=== PATIENT | female | born 1965 | race Caucasian/White ===

== ENCOUNTER 2021-11-26 20:20 | Inpatient (IN) | payer OTHER, SELFPAY ==
[2021-11-26 20:29] VITALS: BP 135/75; PULSE 80; RESP 16; TEMP 36.3; O2SAT 100; BMI 23.4
[2021-11-26 21:00] VITALS: BP 130/86; PULSE 87; O2SAT 100
--- NOTE | 2021-11-26 21:12 | CT_ITS ---
Patient: BRE CLARKE Facility:?[facility] R[facility] Patient ID:?[id number] Site Patient ID:?[id number]. Site :?[id number] Study:?CT-Abdomen/Pelvis W/ISOVUE 370 82CC-11/26/2021 10:10:02 PM Ordering Physician:Ha Son Final Report: INDICATION: Abdominal pain TECHNIQUE: CT abdomen and pelvis acquired with 82 cc Isovue 370 IV contrast. COMPARISON: None FINDINGS: Lower chest: Unremarkable. Liver: Unremarkable. Gallbladder and bile ducts: Unremarkable. Spleen: Unremarkable. Pancreas: There is free fluid around head of the pancreas adjacent to the 1st portion the duodenum and portal vein. Mildly prominent pancreatic duct Adrenal glands: Unremarkable. Kidneys: Unremarkable. GI tract: Large amount of stool throughout the colon. Appendix is normal. Vascular structures: Negative. No sign of aneurysm. Lymph nodes: Unremarkable. Miscellaneous: Unremarkable. No free air or significant free fluid. Pelvic Organs: Pessary device in the vagina. Unremarkable urinary bladder. Bones: Unremarkable for age. IMPRESSION: 1. Free fluid around the head of the pancreas is indeterminate with a broad differential including pancreatitis, localized ascites, or even perforated gastric or diverticular ulcer, though no free-air is seen. 2. Large amount of stool throughout the colon may indicate constipation. Please note that all CT scans at this facility use dose modulation, iterative reconstruction, and/or weight-based dosing when appropriate to reduce radiation dose to as low as reasonably achievable. Dictated by Rahul Alexandre MD @ 11/26/2021 11:03:50 PM Signed by:?Rahul Alexandre MD @11/26/2021 11:03:50 PM (Electronic Signature)
[2021-11-26 21:20] VITALS: BP 135/86; PULSE 61; O2SAT 98
[2021-11-26] MEDS: 0.9 % SODIUM CHLORIDE 1000 ml 1,000 ML IV (21:44)
[2021-11-26] MEDS: KETOROLAC 30 MG/ML inj IVP (21:45)
[2021-11-26 21:54] LABS: Appearance Urine Clear (Clear); Bilirubin Urine Negative (Negative); Blood Urine Trace-intact (Negative); Color Urine Yellow (Yellow); Glucose Urine Negative (Negative); Ketones Urine Negative (Negative); Lactate* 0.5 mmol/L (0.5-1.9); Leukocyte Esterase Urine Negative (Negative); Nitrite Urine Negative (Negative); Protein Urine Negative (Negative); Urobilinogen Urine 0.2 (0.2-1.0)
[2021-11-26 21:58] LABS: Basophils Absolute Auto 0.01 K/uL (0.00-0.30); Basophils Percent Auto 0.1 % (0.0-3.0); Eosinophils Absolute Auto 0.03 K/uL (0.00-0.50); Eosinophils Percent Auto 0.4 % (0.0-7.0); Hematocrit 41.4 % (33.0-51.0); Hemoglobin* 13.7 gm/dL (12.0-16.0); Lymphocytes Absolute Auto 1.54 K/uL (0.90-2.90); Mean Corpuscular HGB Conc 33 gm/dL (32-36); Mean Corpuscular Hemoglobin 32 pg (26-34); Mean Corpuscular Volume 96 fL (80-100); Monocytes Percent Auto 6.9 % (0.0-11.0); Neutrophils Percent Auto 72.6 % (42.0-72.0); Platelet Count* 312 K/uL (140-440); RDW Coefficient of Variation % 13.5 % (11.5-15.5); Red Blood Count 4.32 m/uL (4.00-5.20); White Blood Count* 7.69 K/uL (4.50-11.00)
[2021-11-26 22:06] LABS: Slide Review Reflex No
[2021-11-26 22:11] LABS: Amorphous Sediment Urine Few; RBC Urine 0-2 (0-2); Squamous Epithelial Cell Urine Few (None-Few); WBC Urine 0-2 (0-5)
[2021-11-26 22:16] LABS: Albumin* 4.9 g/dL (3.3-5.0)
[2021-11-26 22:17] LABS: Chloride* 104 mmol/L (96-114); Potassium* 3.9 mmol/L (3.6-5.1); Sodium* 139 mmol/L (135-149)
[2021-11-26 22:19] LABS: Aspartate Amino Transferase* 32 U/L (12-35); Bilirubin Total* 0.3 mg/dL (0.1-1.5); Carbon Dioxide* 26 mmol/L (20-32); Creatinine* 0.6 mg/dL (0.5-1.5); Est. Creatinine Clearance* 98.01; Estimated Glomerular Filt Rate 105 ml/min; Total Protein* 7.9 g/dL (6.0-8.3)
[2021-11-26 22:20] LABS: Alanine Aminotransferase* 35 U/L (4-35); Alkaline Phosphatase* 70 U/L (40-150); Blood Urea Nitrogen* 25 mg/dL (7-30); Calcium* 9.6 mg/dL (8.4-10.6); Glucose* 92 mg/dL (60-115)
[2021-11-26 22:30] VITALS: BP 111/62; PULSE 67; RESP 18; O2SAT 99
[2021-11-26 22:30] LABS: Amylase* 1523 U/L (18-89)
[2021-11-26 23:00] VITALS: BP 114/64; PULSE 66; O2SAT 98
--- NOTE | 2021-11-26 23:32 | ED_ITS ---
HPI - General Adult General Chief complaint: Abdominal Pain Stated complaint: Abdominal pain Time Seen by Provider: 11/26/21 21:08 History of Present Illness HPI narrative: Pt is a 56 year old woman with a distant history of intestinal volvulus who presents with 24 hours of mid abd pain. The pain is severe 8/10. No change in bowels. No dysuria. No vomiting. Pain not responding to OTC at home. Pain described as sharp and diffuse. No aggrevating or alieviating factors. No radiation through to the back. Related Data Home Medications Medication Instructions Recorded Confirmed fluticasone propionate 50 2 spray intranasal QDAY 11/01/21 11/26/21 mcg/actuation nasal spray,suspension levothyroxine 50 mcg tablet 50 mcg PO QDAY 11/01/21 11/26/21 fluconazole 150 mg tablet mg 11/26/21 metronidazole 0.75 % (37.5 mg/5 vaginal 11/26/21 gram) vaginal gel Previous Rx's Medication Instructions Recorded triamcinolone acetonide 0.5 % 1 applic topical BID #15 grams 11/02/21 topical cream Allergies Allergy/AdvReac Type Severity Reaction Status Date / Time Dust Allergy Intermediate Seasonal Uncoded 10/21/21 08:29 Cultivated oat pollen Allergy Mild Breathing Uncoded 10/21/21 08:29 Molds & Smuts Allergy Mild Seasonal Uncoded 10/21/21 08:29 Gluten Meal AdvReac Unknown Uncoded 10/21/21 08:29 Review of Systems Status of ROS: Reports: 10 or more systems reviewed and unremarkable except as noted in History and below [facility] Medical History (Updated 11/27/21 @ 01:57 by Huy Thapa MD) Abdominal pain Cyst of skin (12/2015) Ear problem Encounter for follow-up Encounter for screening for lipid disorder (02/07/13) Encounter for screening for severe acute respiratory syndrome coronavirus 2 (SARS-CoV-2) infection Encounter for vitamin deficiency screening (02/07/13) Excessive cerumen in ear canal Screening for diabetes mellitus (02/07/13) Vasovagal syncope Wax in ear Surgical History History of colonoscopy History of esophagogastroduodenoscopy (EGD) History of sinus surgery Family History Family/Other Celiac disease Crohn's disease History of hyperlipidemia Diabetes Father High blood pressure Diabetes Paternal Grandfather Diabetes Paternal Grandmother Diabetes Social History Smoking Status: Never smoker How often do you have a drink containing alcohol: never AUDIT-C Alcohol total score: 0 Non-prescribed substance use: denies use Exam Narrative: Exam Narrative: EXAM GENERAL: Patient appears uncomfortable and tearful. EYES: No scleral icterus. THYROID: no thyroid nodules or thyromegaly. LYMPH: No supraclavicular or cervical lymphadenopathy. SKIN: Visible skin seen during exam normal or with benign process only. EXT: No dependent lower extremity pedal edema. HEART: Regular rate and rhythm with no murmurs, rubs, or gallops. LUNGS: Clear to auscultation bilaterally with no crackles or wheezes. ABD: No tenderness to palpation. Hypoactive present bowel sounds. No rebound mass or guarding. PSYCH: Good eye contact, speech is not pressured. Const: Vital Signs, click to edit/add: Vital Signs - 24 hr 11/26/21 20:29 11/26/21 22:30 11/26/21 21:20 Temperature 97.3 F L Pulse Rate [Right Pulse Oximeter] 80 67 61 Respiratory Rate 16 18 Blood Pressure [Ri ght Upper Arm] 135/75 111/62 135/86 Pulse Oximetry 100 99 98 Oxygen Delivery Me thod Room Air Room Air Room Air 11/26/21 21:00 11/26/21 23:00 11/27/21 00:25 Temperature Pulse Rate [Right Pulse Oximeter] 87 66 68 Respiratory Rate 18 Blood Pressure [Ri ght Upper Arm] 130/86 114/64 110/64 Pulse Oximetry 100 98 99 Oxygen Delivery Me thod Room Air Room Air Room Air Course Course Hospital Course: CT of the abdomen pelvis lactate UA metabolic panel ordered. Normal saline 1 L given Toradol 30 mg IV given Reevaluation(s) Reevaluation #1: Pt feeling better after hydration. Pt labs stable with the exception of Amylase of 1523. CT results still pending. Time: 23:36 Reevaluation #2: Reviewed CT with General Surgery who recommended admit, NPO, IV fluids, trending of Lipase and Amylase and Ultrasound of Gall Bladder in the am. CT shows fluid around Pancrease consistent with Pancreatitis vs perforated ulcer or localized ascites. No free air. Time: 01:54 Consultations Consultation #1: General Surgery Vital Signs Vital signs: Initial Vital Signs Temperature 97.3 F L 11/26/21 20:29 Temperature Source Temporal Artery Scan 11/26/21 20:29 Pulse Rate 80 11/26/21 20:29 Respiratory Rate 16 11/26/21 20:29 Blood Pressure 135/75 11/26/21 20:29 Blood Pressure Mean 95 11/26/21 20:29 Blood Pressure Position Sitting 11/26/21 20:29 Pulse Oximetry 100 11/26/21 20:29 Oxygen Delivery Method 11/26/21 20:29 Vital Signs Temperature 97.3 F L 11/26/21 20:29 Pulse Rate 80 11/26/21 20:29 Respiratory Rate 16 11/26/21 20:29 Blood Pressure 135/75 11/26/21 20:29 Pulse Oximetry 100 11/26/21 20:29 Oxygen Delivery Method 11/26/21 20:29 Temperature 97.3 F L 11/26/21 20:29 Pulse Rate 68 11/27/21 00:25 Respiratory Rate 18 11/27/21 00:25 Blood Pressure 110/64 11/27/21 00:25 Pulse Oximetry 99 11/27/21 00:25 Oxygen Delivery Method 11/27/21 00:25 Medical Decision Making MDM Narrative Medical decision making narrative: Pt has abd pain with markedly elevated Lipase and Amylase. CT shows inflamation around the pancreas. Visited with General Surgery who reviewed CT. Will admit for serial lipase, amylase, ultrasound in the am npo with hydration. Pt feeling much better. Differential Diagnosis Differential Diagnosis: Pancreatitis, Perforated Ulcer, Ascites, Lab Data Labs: Lab Results 11/26/21 11/26/21 11/26/21 Range/Units 21:40 21:40 21:40 WBC 7.69 (4.50-11.00) K/uL RBC 4.32 (4.00-5.20) m/uL Hgb 13.7 (12.0-16.0) gm/dL Hct 41.4 (33.0-51.0) % MCV 96 (80-100) fL MCH 32 (26-34) pg MCHC 33 (32-36) gm/dL RDW Coeff of Grabiel 13.5 (11.5-15.5) % Plt Count 312 (140-440) K/uL Neut % (Auto) 72.6 H (42.0-72.0) % Lymph % (Auto) 20.0 (20-44) % [place] % (Auto) 6.9 (0.0-11.0) % Eos % (Auto) 0.4 (0.0-7.0) % Baso % (Auto) 0.1 (0.0-3.0) % Neut # (Auto) 5.60 (1.7-7.0) K/uL Lymph # (Auto) 1.54 (0.90-2.90) K/uL [place] # (Auto) 0.50 (0.00-0.90) K/UL Eos # (Auto) 0.03 (0.00-0.50) K/uL Baso # (Auto) 0.01 (0.00-0.30) K/uL Abs Immat Gran (auto) 0.00 (0.00-0.30) K/uL Sodium 139 (135-149) mmol/L Potassium 3.9 (3.6-5.1) mmol/L Chloride 104 (96-114) mmol/L Carbon Dioxide 26 (20-32) mmol/L BUN 25 (7-30) mg/dL Creatinine 0.6 (0.5-1.5) mg/dL Estimated Creat Clear 98.01 Estimated GFR 105 ml/min Glucose 92 (60-115) mg/dL Lactate (0.5-1.9) mmol/L Calcium 9.6 (8.4-10.6) mg/dL Total Bilirubin 0.3 (0.1-1.5) mg/dL AST 32 (12-35) U/L ALT 35 (4-35) U/L Alkaline Phosphatase 70 (40-150) U/L Total Protein 7.9 (6.0-8.3) g/dL Albumin 4.9 (3.3-5.0) g/dL Amylase 1523 H (18-89) U/L Lipase (23-300) U/L Urine Color Yellow (Yellow) Urine Appearance Clear (Clear) Urine pH 7.0 (5.0-8.5) Ur Specific [place] 1.020 (1.000-1.030) Urine Protein Negative (Negative) Urine Glucose (UA) Negative (Negative) Urine Ketones Negative (Negative) Urine Blood Trace-intact A (Negative) Urine Nitrite Negative (Negative) Urine Bilirubin Negative (Negative) Urine Urobilinogen 0.2 (0.2-1.0) Ur Leukocyte Esterase Negative (Negative) Urine RBC 0-2 (0-2) Urine WBC 0-2 (0-5) Ur Squamous Epith Cells Few (None-Few) Amorphous Sediment Few A (None) Urine Bacteria None (None) 11/26/21 11/26/21 11/26/21 Range/Units 21:40 22:32 23:37 WBC (4.50-11.00) K/uL RBC (4.00-5.20) m/uL Hgb (12.0-16.0) gm/dL Hct (33.0-51.0) % MCV (80-100) fL MCH (26-34) pg MCHC (32-36) gm/dL RDW Coeff of Grabiel (11.5-15.5) % Plt Count (140-440) K/uL Neut % (Auto) (42.0-72.0) % Lymph % (Auto) (20-44) % [place] % (Auto) (0.0-11.0) % Eos % (Auto) (0.0-7.0) % Baso % (Auto) (0.0-3.0) % Neut # (Auto) (1.7-7.0) K/uL Lymph # (Auto) (0.90-2.90) K/uL [place] # (Auto) (0.00-0.90) K/UL Eos # (Auto) (0.00-0.50) K/uL Baso # (Auto) (0.00-0.30) K/uL Abs Immat Gran (auto) (0.00-0.30) K/uL Sodium (135-149) mmol/L Potassium (3.6-5.1) mmol/L Chloride (96-114) mmol/L Carbon Dioxide (20-32) mmol/L BUN (7-30) mg/dL Creatinine (0.5-1.5) mg/dL Estimated Creat Clear Estimated GFR ml/min Glucose (60-115) mg/dL Lactate 0.5 0.5 (0.5-1.9) mmol/L Calcium (8.4-10.6) mg/dL Total Bilirubin (0.1-1.5) mg/dL AST (12-35) U/L ALT (4-35) U/L Alkaline Phosphatase (40-150) U/L Total Protein (6.0-8.3) g/dL Albumin (3.3-5.0) g/dL Amylase (18-89) U/L Lipase 90125 H (23-300) U/L Urine Color (Yellow) Urine Appearance (Clear) Urine pH (5.0-8.5) Ur Specific [place] (1.000-1.030) Urine Protein (Negative) Urine Glucose (UA) (Negative) Urine Ketones (Negative) Urine Blood (Negative) Urine Nitrite (Negative) Urine Bilirubin (Negative) Urine Urobilinogen (0.2-1.0) Ur Leukocyte Esterase (Negative) Urine RBC (0-2) Urine WBC (0-5) Ur Squamous Epith Cells (None-Few) Amorphous Sediment (None) Urine Bacteria (None) Discharge Plan Discharge Clinical Impression: Acute pancreatitis Patient Disposition: Admitted As Inpatient Condition: Stable Activity Level: Activity as Tolerated Discharge Diet: Other Prescriptions: No Action fluconazole 150 mg tablet metronidazole 0.75 % (37.5mg/5 gram) gel VAGINAL fluticasone propionate 50 mcg/actuation spray,suspension 2 spray intranasal QDAY Rx Instructions: administer into each nostril levothyroxine 50 mcg tablet 50 mcg PO QDAY triamcinolone acetonide 0.5 % cream 1 applic topical BID Qty: 15 1RF Follow Up/Referrals: Leidy Saucedo PA-C [Primary Care Provider] -
[2021-11-27] VITALS (11 sets, daily range): BP systolic 99–125; BP diastolic 56–72; PULSE 56–68; RESP 16–18; TEMP 36.5–36.8; O2SAT 95–99
[2021-11-27] LABS: Lactate* 0.5 mmol/L (0.5-1.9)
[2021-11-27 01:14] LABS: Lipase* 16317 U/L (23-300)
--- NOTE | 2021-11-27 02:05 | W.PC.EDHO ---
Primary Language: Divehi Preferred Language: Orientation Status: [x] Alert & Oriented [] Slight Confusion [] Known Dx Dementia Transfers By: [] Assist of 1 [x] Assist of 2 [] Lift Active Medications Discontinued Medications Generic Name Dose Route Start Last Admin Trade Name Bro PRN Reason Stop Dose Admin Sodium Chloride 1,000 mls @ 1,000 mls/hr 11/26/21 21:12 11/26/21 22:45 0.9 % Sodium Chloride 1000 Ml IV 11/26/21 22:11 Infused .Q1H KELI Infusion Ketorolac Tromethamine 30 mg 11/26/21 21:12 11/26/21 21:45 Ketorolac 30 Mg/Ml Inj IVP 11/26/21 21:13 30 mg ONCE ONE Administration Description of Symptoms ED Triage Present Problem mid abd pain above umbilicus, started last evening Description after meal, gas bloating, pain comes and goes, is just getting worse, had a bad night. had volvus in her 20's, feels like that, like blocked. a little nausea, no vomit. last bm 1400 normal. today got diagnosed with yeast infection, vaginosis, started meds ED Triage Date of Onset of 11/25/21 Symptoms Female History Patient No Patient No: hyst Pain Pain Description [Medial Pressure,Dull, Achy,Acute Abdomen] Pain Intensity [Medial Abdomen 9 ] Pain Intensity [Medial Abdomen 8 ] Pain Intensity 3 Pain Intensity 0 Pain Intensity 3 Pain Scale Used [Medial Numeric (1 - 10) Abdomen] Pain Scale Used [Medial Numeric (1 - 10) Abdomen] Pain Scale Used Numeric (1 - 10) Pain Scale Used Numeric (1 - 10) Pain Scale Used Numeric (1 - 10) IV Insertion/Site Date of IV Line Insertion [ 11/26/21 Left Antecubital] Oxygen Administration Pulse Oximetry 99 Pulse Oximetry 98 Pulse Oximetry 99 Pulse Oximetry 98 Pulse Oximetry 100 Pulse Oximetry 100 Oxygen Delivery Method Room Air Oxygen Delivery Method Room Air Oxygen Delivery Method Room Air Oxygen Delivery Method Room Air Oxygen Delivery Method Room Air Oxygen Delivery Method Room Air
[2021-11-27 02:09] LABS: PCR FLU A Negative PCR FLU A (Negative); PCR FLU B Negative PCR FLU B (Negative); SARS PCR* Negative SARS-CoV-2 (Negative)
[2021-11-27] MEDS: KETOROLAC 30 MG/ML inj IVP ×3 (04:34→17:59)
[2021-11-27] MEDS: 0.9 % SODIUM CHLORIDE 1000 ml 1,000 ML 125 ML IV ×3 (04:35→20:23)
[2021-11-27] MEDS: PANTOPRAZOLE SODIUM 40 MG INJ IVP (04:35)
--- NOTE | 2021-11-27 05:19 | PM.IMPN1 ---
Progress Note: A&P Assessment and plan (1) Acute pancreatitis: Status: Acute (2) Abdominal pain: Status: Acute (3) Candidiasis of female genitalia: Status: Acute (4) Female genital prolapse: Status: Acute Plan See below. Subjective Time Seen by Provider: 03:00 Date Seen: 11/27/21 Interval history: [facility] CON[facility] NOTE: The [facility] was contacted by the local ER provider with a request for consultation for admission support and cross coverage services for this patient. Provider requesting [facility]: Dr. Huy Thapa MD. Chief Complaint: Abdominal pain. HPI or ER Course: This patient is a 56-year-old lady who presented to the ER with abdominal pain, primarily midline in the upper abdomen. She experienced poor appetite and nausea but no vomiting. She experienced no fevers, chills, sweats, or dizziness. She recalls no previous similar pain, and she presented to the ER because of worsening uncontrolled discomfort. She presented with no fever and normal vital signs. Her physical exam findings were unremarkable and revealed no acute abdomen findings. The laboratory survey revealed a normal-appearing hemogram. The WBC was 7690. The blood chemistry panel revealed normal electrolytes, glucose level, and liver transaminase levels.. The bilirubin level was 0.3. The amylase level was 1523 and the lipase level was 1631. Urinalysis revealed no signs of infection. A CT scan of the abdomen and pelvis with IV contrast identified a fluid collection around the head of the pancreatitis consistent with acute pancreatitis. The ER provider consulted with surgery on-call who recommended admission, control of pain and nausea, and IV fluid replacement therapy as needed. Clear right upper quadrant ultrasound of the abdomen was also recommended. Refer to the ER encounter note for more details. The patient is advised that she does have symptoms of a vaginal yeast infection. She was taking an oral antifungal medication prescribed by her PCP, however, she has not been able to take this medication because of nausea. Pertinent PMH: Dyslipidemia; recurrent UTI; vaginal prolapse; eczema; collagenous colitis; acute respiratory failure secondary to COVID?19 viral infection; and, as discussed in the ER provider's admission note. History Reviewed In The Medical Record: Home Medications. Pertinent Social History. Recent OPD/ER Progress Notes. EXAM: Performed via an interactive video with the assistance of the bedside nurse. The Bedside RN is Temitope. VS: T97.3. P 99. RR 18. BP 110/64. SPO2 99% on room air. GENERAL APPEARANCE: Alert and oriented x4. The patient is not distressed. Her current pain level is 5/10 in the upper abdomen. HEENT: Facial features are symmetric. Mucous membranes are normal-appearing. No jaundice is seen. The oropharynx is clear. NECK: Supple. No jugular venous distention is seen. CHEST: Atraumatic. Normal respiratory movement seen. LUNGS: CTA, bilaterally. HEART: Regular rhythm and rate. No murmurs, gallops, or rubs are heard. Pulses are present in 4 extremities. ABDOMEN: Soft. Generally nontender. No guarding. EXTREMITIES: There is no clubbing, cyanosis, or edema. SKIN: No jaundice seen. No rashes seen. NEUROLOGICAL: Alert and oriented x4. Cranial nerves II through XII are functioning normally. There is normal volitional movement in all 4 extremities without signs of lateralized weakness. No tremors are seen. No myoclonus is seen. LAB Data: Reviewed. See above note. EKG: None available for review RADIOLOGY REPORTS: Reviewed. See above note ASSESSMENT: 1. Acute pancreatitis. 2. Abdominal pain. 3. Nausea 4. Vaginal yeast infection. The patient is mildly to moderately symptomatic. 5. History of vaginal prolapse and urinary retention, for which she is prescribed a pessary. 6. Other PMH as discussed above. PLANS: 1. The [facility] will provide cross coverage care during this hospitalization. 2. N.p.o. status. 3. IV analgesics. 4. IV antiemetics. 5. Maintenance IV fluids. 6. Monitor fluid intake and output. 7. DVT prevention steps: SCD; ambulation. RECOMMENDATIONS: 1. Right upper quadrant ultrasound of the abdomen as recommended by general surgery. 2. Lipid panel to assess for hypertriglyceridemia. I have reviewed the case in consultation. Information has been gathered from conversations with the local provider, a review of the patient's chart, and by a patient evaluation. Based on the current information and the patient's current medical condition, I certify the patient meets criteria for: [XXX] Acute inpatient status with the expectation of a patient stay of more than 2 midnights, but less than 96 hrs. [ ] Swing bed. [ ] Observation status with an expected stay of less than 2 midnights. Thank you for including [facility] in the patient's care. This service is available for further assistance as requested by your care team by calling [phone]. Exam Narrative: Exam Narrative: Documented above. Const: Vital Signs, click to edit/add: Vital Signs - 24 hr 11/26/21 20:29 11/26/21 22:30 11/26/21 21:20 Temperature 97.3 F L Pulse Rate [Pulse Oximeter] Pulse Rate [Right Pulse Oximeter] 80 67 61 Respiratory Rate 16 18 Blood Pressure [Ri ght Arm] Blood Pressure [Ri ght Upper Arm] 135/75 111/62 135/86 Pulse Oximetry 100 99 98 Oxygen Delivery Me thod Room Air Room Air Room Air 11/26/21 21:00 11/26/21 23:00 11/27/21 00:25 Temperature Pulse Rate [Pulse Oximeter] Pulse Rate [Right Pulse Oximeter] 87 66 68 Respiratory Rate 18 Blood Pressure [Ri ght Arm] Blood Pressure [Ri ght Upper Arm] 130/86 114/64 110/64 Pulse Oximetry 100 98 99 Oxygen Delivery Me thod Room Air Room Air Room Air 11/27/21 03:06 11/27/21 03:00 11/27/21 03:44 Temperature 98.1 F 98.3 F Pulse Rate [Pulse Oximeter] 65 64 Pulse Rate [Right Pulse Oximeter] Respiratory Rate 18 18 18 Blood Pressure [Ri ght Arm] 117/71 117/71 Blood Pressure [Ri ght Upper Arm] Pulse Oximetry 99 95 99 Oxygen Delivery Me thod Room Air Room Air Room Air 11/27/21 03:53 Temperature Pulse Rate [Pulse Oximeter] Pulse Rate [Right Pulse Oximeter] Respiratory Rate Blood Pressure [Ri ght Arm] Blood Pressure [Ri ght Upper Arm] Pulse Oximetry 96 Oxygen Delivery Me thod Room Air Labs Labs: Laboratory Results - last 24 hr 11/26/21 11/26/21 11/26/21 21:40 21:40 21:40 WBC 7.69 RBC 4.32 Hgb 13.7 Hct 41.4 MCV 96 MCH 32 MCHC 33 RDW Coeff of Grabiel 13.5 Plt Count 312 Neut % (Auto) 72.6 H Lymph % (Auto) 20.0 [place] % (Auto) 6.9 Eos % (Auto) 0.4 Baso % (Auto) 0.1 Neut # (Auto) 5.60 Lymph # (Auto) 1.54 [place] # (Auto) 0.50 Eos # (Auto) 0.03 Baso # (Auto) 0.01 Abs Immat Gran (auto) 0.00 Sodium 139 Potassium 3.9 Chloride 104 Carbon Dioxide 26 BUN 25 Creatinine 0.6 Estimated Creat Clear 98.01 Estimated GFR 105 Glucose 92 Lactate Calcium 9.6 Total Bilirubin 0.3 AST 32 ALT 35 Alkaline Phosphatase 70 Total Protein 7.9 Albumin 4.9 Amylase 1523 H Lipase Urine Color Yellow Urine Appearance Clear Urine pH 7.0 Ur Specific [place] 1.020 Urine Protein Negative Urine Glucose (UA) Negative Urine Ketones Negative Urine Blood Trace-intact A Urine Nitrite Negative Urine Bilirubin Negative Urine Urobilinogen 0.2 Ur Leukocyte Esterase Negative Urine RBC 0-2 Urine WBC 0-2 Ur Squamous Epith Cells Few Amorphous Sediment Few A Urine Bacteria None SARS-CoV-2 (PCR) Influenza Type A (PCR) Influenza Type B (PCR) 11/26/21 11/26/21 11/26/21 21:40 22:32 23:37 WBC RBC Hgb Hct MCV MCH MCHC RDW Coeff of Grabiel Plt Count Neut % (Auto) Lymph % (Auto) [place] % (Auto) Eos % (Auto) Baso % (Auto) Neut # (Auto) Lymph # (Auto) [place] # (Auto) Eos # (Auto) Baso # (Auto) Abs Immat Gran (auto) Sodium Potassium Chloride Carbon Dioxide BUN Creatinine Estimated Creat Clear Estimated GFR Glucose Lactate 0.5 0.5 Calcium Total Bilirubin AST ALT Alkaline Phosphatase Total Protein Albumin Amylase Lipase 71189 H Urine Color Urine Appearance Urine pH Ur Specific [place] Urine Protein Urine Glucose (UA) Urine Ketones Urine Blood Urine Nitrite Urine Bilirubin Urine Urobilinogen Ur Leukocyte Esterase Urine RBC Urine WBC Ur Squamous Epith Cells Amorphous Sediment Urine Bacteria SARS-CoV-2 (PCR) Influenza Type A (PCR) Influenza Type B (PCR) 11/27/21 01:13 WBC RBC Hgb Hct MCV MCH MCHC RDW Coeff of Grabiel Plt Count Neut % (Auto) Lymph % (Auto) [place] % (Auto) Eos % (Auto) Baso % (Auto) Neut # (Auto) Lymph # (Auto) [place] # (Auto) Eos # (Auto) Baso # (Auto) Abs Immat Gran (auto) Sodium Potassium Chloride Carbon Dioxide BUN Creatinine Estimated Creat Clear Estimated GFR Glucose Lactate Calcium Total Bilirubin AST ALT Alkaline Phosphatase Total Protein Albumin Amylase Lipase Urine Color Urine Appearance Urine pH Ur Specific [place] Urine Protein Urine Glucose (UA) Urine Ketones Urine Blood Urine Nitrite Urine Bilirubin Urine Urobilinogen Ur Leukocyte Esterase Urine RBC Urine WBC Ur Squamous Epith Cells Amorphous Sediment Urine Bacteria SARS-CoV-2 (PCR) Negative SARS-CoV-2 Influenza Type A (PCR) Negative PCR FLU A Influenza Type B (PCR) Negative PCR FLU B
--- NOTE | 2021-11-27 07:13 | CRLHL7_ITS ---
For Patients: As a result of the Century Cures Act, medical imaging exams and procedure reports are released immediately into your electronic medical record. You may view this report before your referring provider. If you have questions, please contact your health care provider. CLINICAL HISTORY: Rule out gallstone pancreatitis FINDINGS: Visualized portions of the liver appears unremarkable. Common bile duct measures 5 millimeters. Right kidney measures 11.1 cm. Right kidney is unremarkable. No stones in the gallbladder. Gallbladder wall measures 3 millimeters and may be some pericholecystic fluid adjacent to the gallbladder. Pancreas is poorly seen. IMPRESSION: 1. No findings for cholelithiasis. Gallbladder wall measures 3 millimeters possible fluid adjacent to the gallbladder. Dictated by Suzanne Patrick MD @ 11/27/2021 11:27:59 AM (Electronically Signed)
[2021-11-27 07:49] LABS: HCO3 VBG 26 mmol/L (21-28); Hematocrit 35.6 % (33.0-51.0); Hemoglobin* 11.9 gm/dL (12.0-16.0); Mean Corpuscular HGB Conc 33 gm/dL (32-36); Mean Corpuscular Hemoglobin 32 pg (26-34); Mean Corpuscular Volume 95 fL (80-100); PCO2 VBG 41 mmHG (40-50); Platelet Count* 268 K/uL (140-440); Red Blood Count 3.74 m/uL (4.00-5.20); White Blood Count* 6.41 K/uL (4.50-11.00); pH VBG 7.411 (7.32-7.43)
[2021-11-27 08:01] LABS: Slide Review Reflex No
[2021-11-27 08:14] LABS: Chloride* 106 mmol/L (96-114)
[2021-11-27 08:15] LABS: Albumin* 3.7 g/dL (3.3-5.0); Sodium* 137 mmol/L (135-149)
[2021-11-27 08:16] LABS: Potassium* 3.8 mmol/L (3.6-5.1)
[2021-11-27 08:17] LABS: Creatinine* 0.5 mg/dL (0.5-1.5); Est. Creatinine Clearance* 117.61; Estimated Glomerular Filt Rate 110 ml/min
[2021-11-27 08:18] LABS: Alanine Aminotransferase* 27 U/L (4-35); Alkaline Phosphatase* 60 U/L (40-150); Aspartate Amino Transferase* 25 U/L (12-35); Bilirubin Total* 0.3 mg/dL (0.1-1.5); Blood Urea Nitrogen* 17 mg/dL (7-30); Calcium* 8.6 mg/dL (8.4-10.6); Carbon Dioxide* 24 mmol/L (20-32); Gamma Glutamyl Transpeptidase* 13 U/L (8-55); Glucose* 86 mg/dL (60-115); Total Protein* 6.2 g/dL (6.0-8.3)
[2021-11-27 08:19] LABS: Magnesium* 2.3 mg/dL (1.5-2.6)
[2021-11-27 08:21] LABS: C Reactive Protein* 3.1 mg/dL (0.5-1.0)
[2021-11-27 08:51] LABS: Lipase* 17816 U/L (23-300)
[2021-11-27] MEDS: NYSTATIN CREAM 30 GM 1 APPLIC TOPICAL ×3 (11:18→20:20)
--- NOTE | 2021-11-27 11:50 | PM.IMPN1 ---
Subjective Date Seen: 11/27/21 Interval history: Daily Progress Note - Hospital Medicine #: CC: OVERNIGHT UPDATES FROM STAFF & MED, LAB, IMAGING UPDATES IMPRESSION: 1. Free fluid around the head of the pancreas is indeterminate with a broad differential including pancreatitis, localized ascites, or even perforated gastric or diverticular ulcer, though no free-air is seen. 2. Large amount of stool throughout the colon may indicate constipation. IMPRESSION: 1. No findings for cholelithiasis. Gallbladder wall measures 3 millimeters possible fluid adjacent to the gallbladder. Review of Systems: See subjective Cardiac: No new chest pain/pressure/palpitations. Respiratory: no new dyspnea. GI: No abdominal bloating Objective: Vitals: see above Lungs: Clear. Cardiac: S1S2. Disposition/Potential discharge - Likely to return to previous living situation. Total time is 35 minutes with greater than 50% spent in counseling and coordination of care. Exam Const: Vital Signs, click to edit/add: Vital Signs - 24 hr 11/26/21 20:29 11/26/21 22:30 11/26/21 21:20 Temperature 97.3 F L Pulse Rate [Pulse Oximeter] Pulse Rate [Right Pulse Oximeter] 80 67 61 Respiratory Rate 16 18 Blood Pressure [Ri ght Arm] Blood Pressure [Ri ght Upper Arm] 135/75 111/62 135/86 Pulse Oximetry 100 99 98 Oxygen Delivery Me thod Room Air Room Air Room Air 11/26/21 21:00 11/26/21 23:00 11/27/21 00:25 Temperature Pulse Rate [Pulse Oximeter] Pulse Rate [Right Pulse Oximeter] 87 66 68 Respiratory Rate 18 Blood Pressure [Ri ght Arm] Blood Pressure [Ri ght Upper Arm] 130/86 114/64 110/64 Pulse Oximetry 100 98 99 Oxygen Delivery Tx thod Room Air Room Air Room Air 11/27/21 03:06 11/27/21 03:00 11/27/21 03:44 Temperature 98.1 F 98.3 F Pulse Rate [Pulse Oximeter] 65 64 Pulse Rate [Right Pulse Oximeter] Respiratory Rate 18 18 18 Blood Pressure [Ri ght Arm] 117/71 117/71 Blood Pressure [Ri ght Upper Arm] Pulse Oximetry 99 95 99 Oxygen Delivery Tx thod Room Air Room Air Room Air 11/27/21 03:53 11/27/21 07:00 11/27/21 07:00 Temperature 97.9 F Pulse Rate [Pulse Oximeter] 64 64 Pulse Rate [Right Pulse Oximeter] Respiratory Rate 18 18 Blood Pressure [Ri ght Arm] 99/56 L Blood Pressure [Ri ght Upper Arm] Pulse Oximetry 96 97 Oxygen Delivery Me thod Room Air Room Air Labs Labs: Laboratory Results - last 24 hr 11/26/21 11/26/21 11/26/21 21:40 21:40 21:40 WBC 7.69 RBC 4.32 Hgb 13.7 Hct 41.4 MCV 96 MCH 32 MCHC 33 RDW Coeff of Grabiel 13.5 Plt Count 312 Neut % (Auto) 72.6 H Lymph % (Auto) 20.0 [place] % (Auto) 6.9 Eos % (Auto) 0.4 Baso % (Auto) 0.1 Neut # (Auto) 5.60 Lymph # (Auto) 1.54 [place] # (Auto) 0.50 Eos # (Auto) 0.03 Baso # (Auto) 0.01 Abs Immat Gran (auto) 0.00 VBG pH VBG pCO2 VBG pO2 VBG HCO3 Sodium 139 Potassium 3.9 Chloride 104 Carbon Dioxide 26 BUN 25 Creatinine 0.6 Estimated Creat Clear 98.01 Estimated GFR 105 Glucose 92 Lactate Calcium 9.6 Magnesium Total Bilirubin 0.3 GGT AST 32 ALT 35 Alkaline Phosphatase 70 C-Reactive Protein Total Protein 7.9 Albumin 4.9 Amylase 1523 H Lipase TSH Urine Color Yellow Urine Appearance Clear Urine pH 7.0 Ur Specific [place] 1.020 Urine Protein Negative Urine Glucose (UA) Negative Urine Ketones Negative Urine Blood Trace-intact A Urine Nitrite Negative Urine Bilirubin Negative Urine Urobilinogen 0.2 Ur Leukocyte Esterase Negative Urine RBC 0-2 Urine WBC 0-2 Ur Squamous Epith Cells Few Amorphous Sediment Few A Urine Bacteria None SARS-CoV-2 (PCR) Influenza Type A (PCR) Influenza Type B (PCR) 11/26/21 11/26/21 11/26/21 21:40 22:32 23:37 WBC RBC Hgb Hct MCV MCH MCHC RDW Coeff of Grabiel Plt Count Neut % (Auto) Lymph % (Auto) [place] % (Auto) Eos % (Auto) Baso % (Auto) Neut # (Auto) Lymph # (Auto) [place] # (Auto) Eos # (Auto) Baso # (Auto) Abs Immat Gran (auto) VBG pH VBG pCO2 VBG pO2 VBG HCO3 Sodium Potassium Chloride Carbon Dioxide BUN Creatinine Estimated Creat Clear Estimated GFR Glucose Lactate 0.5 0.5 Calcium Magnesium Total Bilirubin GGT AST ALT Alkaline Phosphatase C-Reactive Protein Total Protein Albumin Amylase Lipase 88311 H TSH Urine Color Urine Appearance Urine pH Ur Specific [place] Urine Protein Urine Glucose (UA) Urine Ketones Urine Blood Urine Nitrite Urine Bilirubin Urine Urobilinogen Ur Leukocyte Esterase Urine RBC Urine WBC Ur Squamous Epith Cells Amorphous Sediment Urine Bacteria SARS-CoV-2 (PCR) Influenza Type A (PCR) Influenza Type B (PCR) 11/27/21 11/27/21 11/27/21 01:13 07:40 07:40 WBC 6.41 RBC 3.74 L Hgb 11.9 L Hct 35.6 MCV 95 MCH 32 MCHC 33 RDW Coeff of Grabiel Plt Count 268 Neut % (Auto) Lymph % (Auto) [place] % (Auto) Eos % (Auto) Baso % (Auto) Neut # (Auto) Lymph # (Auto) [place] # (Auto) Eos # (Auto) Baso # (Auto) Abs Immat Gran (auto) VBG pH VBG pCO2 VBG pO2 VBG HCO3 Sodium 137 Potassium 3.8 Chloride 106 Carbon Dioxide 24 BUN 17 Creatinine 0.5 Estimated Creat Clear 117.61 Estimated GFR 110 Glucose 86 Lactate Calcium 8.6 Magnesium 2.3 Total Bilirubin 0.3 GGT 13 AST 25 ALT 27 Alkaline Phosphatase 60 C-Reactive Protein 3.1 H Total Protein 6.2 Albumin 3.7 Amylase Lipase 58777 H TSH Urine Color Urine Appearance Urine pH Ur Specific [place] Urine Protein Urine Glucose (UA) Urine Ketones Urine Blood Urine Nitrite Urine Bilirubin Urine Urobilinogen Ur Leukocyte Esterase Urine RBC Urine WBC Ur Squamous Epith Cells Amorphous Sediment Urine Bacteria SARS-CoV-2 (PCR) Negative SARS-CoV-2 Influenza Type A (PCR) Negative PCR FLU A Influenza Type B (PCR) Negative PCR FLU B 11/27/21 11/27/21 07:40 07:40 WBC RBC Hgb Hct MCV MCH MCHC RDW Coeff of Grabiel Plt Count Neut % (Auto) Lymph % (Auto) [place] % (Auto) Eos % (Auto) Baso % (Auto) Neut # (Auto) Lymph # (Auto) [place] # (Auto) Eos # (Auto) Baso # (Auto) Abs Immat Gran (auto) VBG pH 7.411 VBG pCO2 41 VBG pO2 55.0 H VBG HCO3 26 Sodium Potassium Chloride Carbon Dioxide BUN Creatinine Estimated Creat Clear Estimated GFR Glucose Lactate Calcium Magnesium Total Bilirubin GGT AST ALT Alkaline Phosphatase C-Reactive Protein Total Protein Albumin Amylase Lipase TSH 2.950 Urine Color Urine Appearance Urine pH Ur Specific [place] Urine Protein Urine Glucose (UA) Urine Ketones Urine Blood Urine Nitrite Urine Bilirubin Urine Urobilinogen Ur Leukocyte Esterase Urine RBC Urine WBC Ur Squamous Epith Cells Amorphous Sediment Urine Bacteria SARS-CoV-2 (PCR) Influenza Type A (PCR) Influenza Type B (PCR)
--- NOTE | 2021-11-27 11:57 | PM.IMHP1 ---
Hospitalist- H&P: HPI History of Present Illness Date Seen: 11/27/21 Chief complaint: Abdominal pain Narrative: ADMISSION HISTORY AND PHYSICAL - HOSPITALIST Chief Complaint: Significant abdominal pain HPI: 56-year-old with a history of celiac disease and a exploratory laparotomy 3 decades ago presents with acute on chronic abdominal pain. She states that she always has ?a sensitive stomach? for many years. She attributes this to a history of severe food poisoning in her early 20s that led to an acute volvulus. She was emergently taken to the OR and had a volvulus reduction without bowel resection. Since then she has had intermittent abdominal pain after eating. She currently is being evaluated at [facility] for ongoing celiac/bacterial overgrowth. She has never had pancreatitis or issues with her pancreas in the past. She still has her gallbladder. She has never had cholelithiasis to her knowledge. Yesterday the pain began in her mid epigastric and felt like bad gas pain. She said this progressed to the point of being unbearable. Nausea without vomiting has been noted. No diarrhea. She did have a soft stool yesterday that was nonbloody. No recent travel. Her is well. In the ED it was noted that her lipase was over 16,[address] had a CT that was consistent with pancreatitis. I've updated the PFSH, medications and allergies in the [place] tabs. INVESTIGATIONS: LABS/MICRO/ECG/IMAGING Vital signs are reviewed. They are unremarkable. Please see vitals tab. CBC reveals a normal white blood cell count. Hemoglobin that is drifted from 13.7-11.9 after IV fluids. Normal platelets are noted. Normal blood gas CMP is largely unremarkable. Normal renal function. Normal LFTs. Sixteen thousand three hundred seventeen for her initial lipase, up to 17,800 this morning. Amylase 1500 CRP 3.[address] abdomen/pelvis last night IMPRESSION: 1. Free fluid around the head of the pancreas is indeterminate with a broad differential including pancreatitis, localized ascites, or even perforated gastric or diverticular ulcer, though no free-air is seen. 2. Large amount of stool throughout the colon may indicate constipation. Ultrasound this morning 1. No findings for cholelithiasis. Gallbladder wall measures 3 millimeters possible fluid adjacent to the gallbladder. REVIEW OF SYSTEMS: 12-point ROS completed with patient and negative unless otherwise stated in HPI or below. PHYSICAL EXAM: CODE STATUS: Full code CONSTITUTIONAL: Conversive, good historian. A/O. Knows setting and context. Tearful this morning. VITAL SIGNS: see record. HEENT: Normocephalic, atraumatic. PERRL, EOMI, conjunctivae pink, no scleral icterus. Ears and nose externally normal. Pharynx normal. NECK: No JVD. No carotid bruit, no thyromegaly, no adenopathy. CHEST: Clear to auscultation bilaterally HEART: S1 and S2 normal. No harsh murmurs. Edema minimal Abdominal exam: Mildly tender across the mid epigastric region. No CVA tenderness. MUSCULOSKELETAL: No gross joint deformity or swelling. NEURO: Cranial nerves intact. Grossly intact. No asymmetric findings. SKIN: No rashes, petechiae, concerning changes PSYCHIATRIC: Euthymic. ADMIT TO MEDSURG: FLOOR CARE DVT: SCDs GI: PO intake Time spent: 70 minutes examining patient, conferring with family and patient, care staff, developing care plan [facility] Medical History (Updated 11/27/21 @ 14:42 by Georgina Baxter MD) Asthma (01/06/10) Celiac disease COVID Female genital prolapse Hypothyroidism Volvulus Surgical History (Updated 11/27/21 @ 14:43 by Georgina Baxter MD) History of bladder surgery History of colonoscopy History of esophagogastroduodenoscopy (EGD) History of exploratory laparotomy History of sinus surgery Status post vaginal hysterectomy Family History Family/Other Celiac disease Crohn's disease History of hyperlipidemia Diabetes Father High blood pressure Diabetes Paternal Grandfather Diabetes Paternal Grandmother Diabetes Social History (Updated 11/27/21 @ 14:44 by Georgina Baxter MD) Narrative: , 2 adult children, 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 Lives in [place] Highest level of school completed/degree received: some college, no degree Smoking Status: Never smoker Do you use any of these nicotine containing products: None Second hand tobacco smoke exposure: No How often do you have a drink containing alcohol: never How often do you have six or more drinks on one occasion: Never AUDIT-C Alcohol total score: 0 Non-prescribed substance use: denies use Caffeine: No service: No Meds Home Medications and Allergies Home Medications Medication Instructions Recorded Confirmed Type fluticasone propionate 50 1 spray intranasal BID 11/01/21 11/27/21 History mcg/actuation nasal spray,suspension levothyroxine 50 mcg tablet 50 mcg PO QDAY 11/01/21 11/26/21 History fluconazole 150 mg tablet 150 mg PO ONCE 11/26/21 11/27/21 History metronidazole 0.75 % (37.5 mg/5 1 appful vaginal HS 11/26/21 11/27/21 History gram) vaginal gel budesonide 180 mcg/actuation 1 inh inhalation BID 11/27/21 11/27/21 History breath activated powder inhaler (Pulmicort Flexhaler) [id number] 1 drp ophthalmic (eye) Q1H PRN 11/27/21 11/27/21 History 80 0.5 %-1 %-0.5 % eye drops (Refresh Optive Advanced) estradiol 0.01% (0.1 mg/gram) 1 g vaginal 3XW 11/27/21 11/27/21 History vaginal cream eyelid cleanser combination 7 1 applic topical BID 11/27/21 11/27/21 History (Ocusoft Lid Scrub Original topical foam) hypochlorous acid-sodium 1 applic topical BID 11/27/21 11/27/21 History chloride-sodium phosphate topical spray ketotifen fumarate 0.025 % (0.035 1 drp ophthalmic (eye) BID 11/27/21 11/27/21 History %) eye drops lifitegrast 5 % eye drops in a 1 drp ophthalmic (eye) BID 11/27/21 11/27/21 History dropperette (Xiidra) zafirlukast 20 mg tablet 20 mg PO BID 11/27/21 11/27/21 History Home Medication Comments: dry eye home meds pulmicort, zafirlukast Allergies Allergy/AdvReac Type Severity Reaction Status Date / Time Dust Allergy Intermediate Seasonal Uncoded 10/21/21 08:29 Cultivated oat pollen Allergy Mild Breathing Uncoded 10/21/21 08:29 Molds & Smuts Allergy Mild Seasonal Uncoded 10/21/21 08:29 Gluten Meal AdvReac Unknown Uncoded 10/21/21 08:29 Exam Const: Vital Signs, click to edit/add: Vital Signs - 24 hr 11/26/21 20:29 11/26/21 22:30 11/26/21 21:20 Temperature 97.3 F L Pulse Rate [Pulse Oximeter] Pulse Rate [Right Pulse Oximeter] 80 67 61 Respiratory Rate 16 18 Blood Pressure [Ri ght Arm] Blood Pressure [Ri ght Upper Arm] 135/75 111/62 135/86 Pulse Oximetry 100 99 98 Oxygen Delivery Me thod Room Air Room Air Room Air 11/26/21 21:00 11/26/21 23:00 11/27/21 00:25 Temperature Pulse Rate [Pulse Oximeter] Pulse Rate [Right Pulse Oximeter] 87 66 68 Respiratory Rate 18 Blood Pressure [Ri ght Arm] Blood Pressure [Ri ght Upper Arm] 130/86 114/64 110/64 Pulse Oximetry 100 98 99 Oxygen Delivery Me thod Room Air Room Air Room Air 11/27/21 03:06 11/27/21 03:00 11/27/21 03:44 Temperature 98.1 F 98.3 F Pulse Rate [Pulse Oximeter] 65 64 Pulse Rate [Right Pulse Oximeter] Respiratory Rate 18 18 18 Blood Pressure [Ri ght Arm] 117/71 117/71 Blood Pressure [Ri ght Upper Arm] Pulse Oximetry 99 95 99 Oxygen Delivery Me thod Room Air Room Air Room Air 11/27/21 03:53 11/27/21 07:00 11/27/21 07:00 Temperature 97.9 F Pulse Rate [Pulse Oximeter] 64 64 Pulse Rate [Right Pulse Oximeter] Respiratory Rate 18 18 Blood Pressure [Ri ght Arm] 99/56 L Blood Pressure [Ri ght Upper Arm] Pulse Oximetry 96 97 Oxygen Delivery Me thod Room Air Room Air Hospitalist - H&P: Result Labs Labs: Short CBC 11/26/21 11/27/21 Range/Units 21:40 07:40 WBC 7.69 6.41 (4.50-11.00) K/uL Hgb 13.7 11.9 L (12.0-16.0) gm/dL Hct 41.4 35.6 (33.0-51.0) % Plt Count 312 268 (140-440) K/uL BMP 11/26/21 11/27/21 21:40 07:40 Sodium 139 137 Potassium 3.9 3.8 Chloride 104 106 Carbon Dioxide 26 24 BUN 25 17 Creatinine 0.6 0.5 Glucose 92 86 Calcium 9.6 8.6 Liver Function 11/26/21 11/27/21 Range/Units 21:40 07:40 Total Bilirubin 0.3 0.3 (0.1-1.5) mg/dL GGT 13 (8-55) U/L AST 32 25 (12-35) U/L ALT 35 27 (4-35) U/L Alkaline Phosphatase 70 60 (40-150) U/L Albumin 4.9 3.7 (3.3-5.0) g/dL Urine 11/26/21 Range/Units 21:40 Urine Color Yellow (Yellow) Urine Appearance Clear (Clear) Urine pH 7.0 (5.0-8.5) Ur Specific [place] 1.020 (1.000-1.030) Urine Protein Negative (Negative) Urine Glucose (UA) Negative (Negative) Assessment and Plan Assessment and plan (1) Acute pancreatitis: Problem comment: 1st acute/hospitalized episode 12/09 Status: Acute Assessment and Plan: NPO. IV fluids. May try sips and chips later today. Consider MRCP for further clarification as the cause of her pancreatitis is still under investigation. Her gallbladder looks healthy, she does not drink alcohol. There are no new medications, this apparently is idiopathic and we need to consider IPMN or occult malignancy. (2) Celiac disease: Problem comment: Adheres to a gluten free diet Status: Acute Assessment and Plan: Continue gluten free diet (3) Hypothyroidism: Problem comment: Levothyroxine replacement Status: Acute Assessment and Plan: Continue her home thyroxine (4) Candidiasis of female genitalia: Status: Acute Assessment and Plan: Just diagnosed yesterday. She can continue her Diflucan and metronidazole as prescribed by her uro Gyne. (5) Asthma: Status: Acute Assessment and Plan: Patient uses a leukotriene inhibitor and Pulmicort inhaler. She is being both of these from home.
[2021-11-27 13:09] LABS: C Reactive Protein* 1.6 mg/dL (0.5-1.0)
[2021-11-27 15:10] LABS: Triglycerides* 104 mg/dL (40-149)
[2021-11-27] MEDS: FLUCONAZOLE 150 MG TABLET PO (15:45)
--- NOTE | 2021-11-27 15:48 | PC.NURSE ---
Shift Note [id number]: Pt friendly and cooperative. Moves independently throughout room. HR slightly bradycardic and LS COA. VS otherwise WNL. Afebrile. C/o 5/10 medical abdominal pain and states Toradol PRN has been effective for management. Pt given small cup of ice chips but is otherwise NPO. Maintenance fluids running and pt voiding without difficulty. She is applying Nystatin cream independently at scheduled times. visiting at bedside, home meds brought to pharmacy.
--- NOTE | 2021-11-27 18:58 | PC.NURSE ---
Shift [id number]- Patient appears to nap on and off. She rates pain 2-4/10, PRN medication administered for increased pain- see eMAR. She is up ad genny. No nausea/vomiting. Tolerating ice chips.
[2021-11-27] MEDS: FLUTICASONE PROPIONATE NASAL 1 SPRAY NOSTRIL-B (20:27)
[2021-11-27] MEDS: HYDROmorphone 0.5 mg/0.5 ml inj IVP (23:01)
[2021-11-28] VITALS (7 sets, daily range): BP systolic 116–128; BP diastolic 54–80; PULSE 59–71; RESP 16; TEMP 36.5–37.1; O2SAT 98–100
[2021-11-28] MEDS: KETOROLAC 30 MG/ML inj IVP ×4 (03:30→22:19)
[2021-11-28] MEDS: PANTOPRAZOLE SODIUM 40 MG INJ IVP (03:30)
[2021-11-28] MEDS: 0.9 % SODIUM CHLORIDE 1000 ml 1,000 ML 125 ML IV ×3 (04:45→20:37)
[2021-11-28] MEDS: LEVOTHYROXINE 50 MCG TABLET PO (06:25)
[2021-11-28 06:57] LABS: Hematocrit 37.2 % (33.0-51.0); Hemoglobin* 12.2 gm/dL (12.0-16.0); Mean Corpuscular HGB Conc 33 gm/dL (32-36); Mean Corpuscular Hemoglobin 31 pg (26-34); Mean Corpuscular Volume 96 fL (80-100); Platelet Count* 262 K/uL (140-440); Red Blood Count 3.88 m/uL (4.00-5.20)
[2021-11-28 07:01] LABS: HCO3 VBG 25 mmol/L (21-28); Ionized Calcium* 1.17 mmol/L (1.11-1.30); Lactate* 0.6 mmol/L (0.5-1.9); PCO2 VBG 43 mmHG (40-50); PO2 VBG 38.3 mmHG (25-47); pH VBG 7.368 (7.32-7.43)
[2021-11-28 07:11] LABS: Slide Review Reflex No
[2021-11-28 07:28] LABS: Albumin* 3.8 g/dL (3.3-5.0); Chloride* 108 mmol/L (96-114)
[2021-11-28 07:29] LABS: Potassium* 4.3 mmol/L (3.6-5.1); Sodium* 137 mmol/L (135-149)
[2021-11-28 07:31] LABS: Creatinine* 0.5 mg/dL (0.5-1.5); Est. Creatinine Clearance* 117.61; Estimated Glomerular Filt Rate 110 ml/min
[2021-11-28 07:32] LABS: Alanine Aminotransferase* 24 U/L (4-35); Alkaline Phosphatase* 58 U/L (40-150); Aspartate Amino Transferase* 27 U/L (12-35); Bilirubin Total* 0.4 mg/dL (0.1-1.5); Blood Urea Nitrogen* 15 mg/dL (7-30); Calcium* 8.5 mg/dL (8.4-10.6); Carbon Dioxide* 23 mmol/L (20-32); Gamma Glutamyl Transpeptidase* 14 U/L (8-55); Glucose* 72 mg/dL (60-115); Magnesium* 2.2 mg/dL (1.5-2.6); Total Protein* 6.5 g/dL (6.0-8.3)
[2021-11-28 07:35] LABS: C Reactive Protein* 6.1 mg/dL (0.5-1.0)
[2021-11-28 07:41] LABS: NT Pro B Type NatriureticPept* 42 PG/mL (0-125)
[2021-11-28] MEDS: FLUTICASONE PROPIONATE NASAL 1 SPRAY NOSTRIL-B ×2 (07:56→20:39)
[2021-11-28] MEDS: NYSTATIN CREAM 30 GM 1 APPLIC TOPICAL ×3 (07:58→20:37)
[2021-11-28 08:00] LABS: Lipase* 19464 U/L (23-300)
--- NOTE | 2021-11-28 10:10 | P.IMPN_ITS ---
Progress Note: A&P Assessment and plan (1) Acute pancreatitis: Problem details: 1st acute/hospitalized episode 12/09 -thought about gallbladder - no acute findings, not alcohol, not triglycerides, no obvious med effect. -discussed case with Dr. Garcia, ABN GI, he recommends being patient; trend, NG for feeds if needed -He didn't think MRCP would offer much but can be considered -EUS down the line possibly Status: Acute (2) Celiac disease: Problem details: Adheres to a gluten free diet Status: Acute (3) Hypothyroidism: Problem details: Levothyroxine replacement Status: Acute (4) Candidiasis of female genitalia: Status: Acute (5) Asthma: Status: Acute Subjective Date Seen: 11/28/21 Interval history: Daily Progress Note - Hospital Medicine Day #: 3 CC: ongoing abdominal pain. persistently elevated lipase OVERNIGHT UPDATES FROM STAFF & MED, LAB, IMAGING UPDATES pain required hydromorphone last night; felt groggy and dizzy on this. toradol has been working but not quite as effective today. no fever, no WBC count, abdominal pain is slowly getting worse, but hemodynamically stable. CBC stable Chemistries are quite unremarkable, other than a climbing lipase. Lipase originally 16,317, today 19,464. Amylase is climbed from 2969-2383 CRP is climb from 3.1-6.1 Findings of pancreatitis at and near the pancreaticoduodenal groove. The findings have marginally worsened since the prior study. There is no evidence of pancreatic necrosis or collection. Fluid surrounds the gallbladder though this is probably an extension of peripancreatic ascites from pancreatitis rather than gallbladder disease. Review of Systems: See subjective Cardiac: No new chest pain/pressure/palpitations. Respiratory: no new dyspnea. GI: No abdominal bloating Objective: Vitals: see above Lungs: Clear. Cardiac: S1S2. abdomen: soft. tender across the epigastric. normal bowel sounds. Disposition/Potential discharge - Likely to return to previous living situation. Total time is 35 minutes with greater than 50% spent in counseling and coordina tion of care. Exam Const: Vital Signs, click to edit/add: Vital Signs - 24 hr 11/27/21 11:00 11/27/21 15:35 11/27/21 19:00 Temperature 97.9 F 97.9 F 98 F Pulse Rate [Pulse Oximeter] 56 L 59 L 65 Respiratory Rate 18 16 16 Blood Pressure [Ri ght Arm] 118/72 102/59 L 115/69 Pulse Oximetry 99 99 99 Oxygen Delivery Me thod Room Air Room Air Room Air 11/27/21 22:33 11/27/21 23:00 11/28/21 03:00 Temperature 97.7 F 98.7 F Pulse Rate [Pulse Oximeter] 62 60 59 L Respiratory Rate 16 16 16 Blood Pressure [Ri ght Arm] 125/67 116/54 L Pulse Oximetry 99 99 Oxygen Delivery Me thod Room Air Room Air 11/28/21 07:44 11/28/21 08:00 Temperature 97.8 F Pulse Rate [Pulse Oximeter] 68 68 Respiratory Rate 16 16 Blood Pressure [Ri ght Arm] 128/72 Pulse Oximetry 98 Oxygen Delivery Me thod Room Air Labs Labs: Laboratory Results - last 24 hr 11/26/21 11/27/21 11/28/21 21:40 07:40 06:31 WBC 6.70 RBC 3.88 L Hgb 12.2 Hct 37.2 MCV 96 MCH 31 MCHC 33 Plt Count 262 VBG pH VBG pCO2 VBG pO2 VBG HCO3 Sodium Potassium Chloride Carbon Dioxide BUN Creatinine Estimated Creat Clear Estimated GFR Glucose Lactate Calcium Ionized Calcium [place] Magnesium Total Bilirubin GGT AST ALT Alkaline Phosphatase C-Reactive Protein 1.6 H NT-Pro-B Natriuret Pep Total Protein Albumin Triglycerides 104 Lipase 11/28/21 11/28/21 06:31 06:31 WBC RBC Hgb Hct MCV MCH MCHC Plt Count VBG pH 7.368 VBG pCO2 43 VBG pO2 38.3 VBG HCO3 25 Sodium 137 Potassium 4.3 Chloride 108 Carbon Dioxide 23 BUN 15 Creatinine 0.5 Estimated Creat Clear 117.61 Estimated GFR 110 Glucose 72 Lactate 0.6 Calcium 8.5 Ionized Calcium Alana 1.17 Magnesium 2.2 Total Bilirubin 0.4 GGT 14 AST 27 ALT 24 Alkaline Phosphatase 58 C-Reactive Protein 6.1 H NT-Pro-B Natriuret Pep 42 Total Protein 6.5 Albumin 3.8 Triglycerides Lipase 67050 H
--- NOTE | 2021-11-28 10:20 | CRLHL7_ITS ---
For Patients: As a result of the Century Cures Act, medical imaging exams and procedure reports are released immediately into your electronic medical record. You may view this report before your referring provider. If you have questions, please contact your health care provider. INDICATION: Pancreatitis COMPARISON: 11/26/2021 TECHNIQUE: CT examination of the abdomen and pelvis was performed following the uneventful intravenous administration of 70 cc of Isovue 370. Thin section axial images were obtained from the lung bases through the pubic symphysis. Oral contrast was not administered. Please note that all CT scans at this facility use dose modulation, iterative reconstruction, and/or weight-based dosing when appropriate to reduce radiation dose to as low as reasonably achievable. FINDINGS: LUNG BASES: Trace basilar atelectasis.The heart size is normal at the lung bases. LIVER/BILIARY SYSTEM:The liver is normal in size and configuration. There is no focal mass and there is no intra- or extra hepatic biliary ductal dilatation.Neighboring hyperdense material within the gallbladder is probably vicariously excreted contrast from the November 26 injection. There is fluid around the gallbladder which has worsened probably extended from the pancreatic process rather than due to primary gallbladder pathology. No significant biliary ductal dilatation. ADRENALS: Normal KIDNEYS, URETERS and BLADDER:The kidneys appear normal. Mildly prominent right ureter without isabel obstruction. The bladder is distended but otherwise unremarkable. SPLEEN:Normal appearance. PANCREAS: Peripancreatic inflammatory changes centered at the pancreaticoduodenal groove. This appearance has worsened since the prior study especially surrounding fluid. This is probably due to pancreatitis though duodenal inflammatory disease can occasionally create this appearance with secondary involvement of the pancreas. There is no evidence of isabel collection or pancreatic necrosis. RETROPERITONEUM and MESENTERY: There is no mass, adenopathy or aortic aneurysm. Retroperitoneal fluid in the region of the pancreas in the right flank GASTROINTESTINAL SYSTEM: There is no evidence of diverticulitis, colitis, mechanical obstruction, or appendicitis. The small bowel as visualized appears normal.Scattered diverticulosis PELVIS: No mass, adenopathy or free fluid.A pessary is in place OSSEOUS STRUCTURES and ABDOMINAL WALL: There is an age-appropriate appearance of the osseous structures.No significant abdominal wall defect. OTHER: No free fluid or free air. IMPRESSION: Findings of pancreatitis at and near the pancreaticoduodenal groove. The findings have marginally worsened since the prior study. There is no evidence of pancreatic necrosis or collection. Fluid surrounds the gallbladder though this is probably an extension of peripancreatic ascites from pancreatitis rather than gallbladder disease. Please note that all CT scans at this facility use dose modulation, iterative reconstruction, and/or weight-based dosing when appropriate to reduce radiation dose to as low as reasonably achievable. Dictated by Felipe Lewis MD @ 11/28/2021 12:13:08 PM (Electronically Signed)
[2021-11-28 12:25] LABS: Amylase* 2702 U/L (18-89)
--- NOTE | 2021-11-28 16:01 | PC.NURSE ---
End of shift-- Pleasant and cooperative patient. VSS and pt is afebrile. SPO2 maintained >90% on RA. Pain appears well managed with Toradol q6h. LS CTA. BS+ x4, but hypoactive. She denied nausea or any BM since Monday and is tolerating small amounts of clear liquids. She ambulated the hallways independently and tolerated it well. Report to CEASAR Gallegos.
--- NOTE | 2021-11-28 18:44 | PC.NURSE ---
Shift [id number]- Patient rates pain 2-5/10 this shift, toradol given with relief. She also states that ambulating helps relieve the pain. She is tearful and concerned a test she had almost a week ago is a contributing factor to her pancreatitis. She asks this concern is raised to AM , which was done. Bowel sounds are active.
[2021-11-28] MEDS: polyethylene glycoL 3350 17 GM PACK 8.5 GM PO (20:36)
[2021-11-29 03:00] VITALS: BP 104/64; PULSE 65; RESP 16; TEMP 36.6; O2SAT 98
[2021-11-29] MEDS: 0.9 % SODIUM CHLORIDE 1000 ml 1,000 ML 125 ML IV ×3 (03:10→21:00)
[2021-11-29] MEDS: HYDROmorphone 0.5 mg/0.5 ml inj IVP (03:15)
[2021-11-29] MEDS: PANTOPRAZOLE SODIUM 40 MG INJ IVP (03:19)
--- NOTE | 2021-11-29 05:22 | PC.NURSE ---
Shift 7p-7a: Pt. AOx4, following commands, VSS on RA. Pt. ambulating to bathroom and in hallway independently, voiding w/o difficulty. Currently NPO status but OK per MD for 1 cup of clear liquids TID. Pt. requested for chicken broth and tolerated well w/o N/V. PRN toradol and dilauded 0.3mg given for pain management, pt. verbalizes pain relief after administration. Pt. receiving NS @125mL/hr, plan for abdominal MRI today. MRI screening checklist completed
[2021-11-29] MEDS: LEVOTHYROXINE 50 MCG TABLET PO (06:30)
[2021-11-29 06:44] LABS: Ionized Calcium* 1.17 mmol/L (1.11-1.30)
[2021-11-29 06:47] LABS: Hematocrit 35.7 % (33.0-51.0); Mean Corpuscular HGB Conc 34 gm/dL (32-36); Mean Corpuscular Hemoglobin 32 pg (26-34); Mean Corpuscular Volume 95 fL (80-100); Platelet Count* 262 K/uL (140-440); Red Blood Count 3.76 m/uL (4.00-5.20); White Blood Count* 5.97 K/uL (4.50-11.00)
[2021-11-29 07:00] LABS: Slide Review Reflex No
[2021-11-29 07:20] VITALS: BP 117/55; PULSE 71; RESP 16; TEMP 36.5; O2SAT 100
[2021-11-29 07:49] LABS: INR 1.03 (0.91-1.10); Prothrombin Time 13.9 Seconds
[2021-11-29 07:53] LABS: Albumin* 3.8 g/dL (3.3-5.0); Chloride* 109 mmol/L (96-114)
[2021-11-29 07:54] LABS: Potassium* 3.6 mmol/L (3.6-5.1); Sodium* 137 mmol/L (135-149)
[2021-11-29 07:57] LABS: Alanine Aminotransferase* 22 U/L (4-35); Alkaline Phosphatase* 68 U/L (40-150); Aspartate Amino Transferase* 25 U/L (12-35); Bilirubin Total* 0.5 mg/dL (0.1-1.5); Blood Urea Nitrogen* 15 mg/dL (7-30); Calcium* 8.5 mg/dL (8.4-10.6); Carbon Dioxide* 20 mmol/L (20-32); Creatinine* 0.5 mg/dL (0.5-1.5); Est. Creatinine Clearance* 117.61; Estimated Glomerular Filt Rate 110 ml/min; Gamma Glutamyl Transpeptidase* 13 U/L (8-55); Glucose* 59 mg/dL (60-115); Magnesium* 2.2 mg/dL (1.5-2.6); Total Protein* 6.5 g/dL (6.0-8.3)
--- NOTE | 2021-11-29 08:00 | CRLHL7_ITS ---
For Patients: As a result of the Century Cures Act, medical imaging exams and procedure reports are released immediately into your electronic medical record. You may view this report before your referring provider. If you have questions, please contact your health care provider. Indication: Pancreatitis of unknown etiology. Technique: Multiplanar multisequence images were obtained before and after the administration 20 cc Dotarem intravenously. Comparison: Abdomen and pelvis CT 11/28/2021 Findings: Liver: Lesion within segment 7 which is isointense on T1 and slightly hyperintense on T2. This is hypointense in the arterial phase but is isointense to liver in the portal venous and 5 minutes phases. No signal drop on out of phase imaging. Lesion measures 12 millimeters. Biliary: The gallbladder is moderately distended without evidence of cholelithiasis. Common duct measures 6 millimeters without choledocholithiasis. Trace pericholecystic edema without clear gallbladder wall thickening. Pancreas: Small peripancreatic edema with some increased signal intensity on T2 weighted images and reticular pattern within the pancreas consistent with pancreatic edema. Conventional pancreatic ductal anatomy. Mild dilatation of the pancreatic duct measuring to 4 millimeters with a short segment area of decompression at the level of the pancreatic head just before the papilla (see series 17, image 45). No definite lesion identified at the level of transition. Adrenal glands: Unremarkable. Kidneys: Subcentimeter left renal cyst at the upper pole, otherwise unremarkable. Vascular: Unremarkable. Bowel: Unremarkable. Impression: 1. Reticular pancreatic edema and small peripancreatic fluid consistent with the given history of pancreatitis. Conventional pancreatic ductal anatomy. Mild dilatation of the pancreatic duct with a short segment area of transition at the pancreatic head. No definite pancreatic lesion identified of the transition point. Differential would include compression due to pancreatic edema/pancreatitis, pancreatic duct stricture or occult ductal/mucosal lesion. 2. Hepatic lesion within segment 7 measuring 12 millimeters. This finding is not seen on CT and is somewhat indeterminate in its imaging characteristics although suspect a more benign process such as focal nodular hyperplasia. Short-term follow-up in 3-6 months could be considered to ensure stability. 3. Mild gallbladder distention with pericholecystic edema, probably tracking from the pancreas. Common duct upper normal diameter. No choledocholithiasis seen. Dictated by Willi Sharif MD @ 11/29/2021 9:54:33 AM (Electronically Signed)
[2021-11-29 08:06] LABS: Amylase* 2207 U/L (18-89)
[2021-11-29 08:12] LABS: C Reactive Protein* 14.6 mg/dL (0.5-1.0)
[2021-11-29 08:48] LABS: Lipase* 14542 U/L (23-300)
[2021-11-29] MEDS: NYSTATIN CREAM 30 GM 1 APPLIC TOPICAL ×3 (09:54→21:38)
[2021-11-29] MEDS: FLUTICASONE PROPIONATE NASAL 1 SPRAY NOSTRIL-B ×2 (09:55→21:39)
[2021-11-29 11:00] VITALS: BP 114/59; PULSE 58; RESP 16; TEMP 36.9; O2SAT 99
[2021-11-29] MEDS: KETOROLAC 30 MG/ML inj IVP ×2 (11:47→19:17)
--- NOTE | 2021-11-29 14:58 | PC.NURSE ---
Pt UAL in room and hallway. Eupneic and in NAD. Pt may have ice chips and one cup of fluid (broth)TID. Prn toradol 30mg IVP given for pain 4-5 out of 10 with relief. Pt rating her pain 2-3 for majority of shift. Slept in the afternoon. MRI completed this am. Report will be given to oncoming shift.
[2021-11-29 15:00] VITALS: BP 124/64; PULSE 63; RESP 18; TEMP 36.7; O2SAT 99
--- NOTE | 2021-11-29 15:23 | PM.IMPN1 ---
Progress Note: A&P Assessment and plan (1) Acute pancreatitis: Problem details: 1st acute/hospitalized episode 12/09 -thought about gallbladder - no acute findings, not alcohol, not triglycerides, no obvious med effect. -discussed case with Dr. Garcia, [facility], he recommends being patient; trend, NG for feeds if needed -He didn't think MRCP would offer much but can be considered -EUS down the line possibly Status: Acute (2) Celiac disease: Problem details: Adheres to a gluten free diet Status: Acute (3) Hypothyroidism: Problem details: Levothyroxine replacement Status: Acute (4) Candidiasis of female genitalia: Status: Acute (5) Asthma: Status: Acute Subjective Date Seen: 11/29/21 Interval history: Daily Progress Note - Hospital Medicine Day #: 4 CC: ongoing abdominal pain. persistently elevated lipase OVERNIGHT UPDATES FROM STAFF & MED, LAB, IMAGING UPDATES Pain is about the same, maybe better. Tolerating fairly well 1 cup of clear liquids t.i.d.. no fever, no WBC count, abdominal pain is stable. It has not improved dramatically, hemodynamically stable. CBC stable Chemistries are quite unremarkable, other than a climbing lipase. Lipase originally 16,317, today 19,464 - NOW 14,542 Amylase is climbed from 5694-2169 - NOW 2207 CRP is climb from 3.1-6.1, now 14.6 1. Reticular pancreatic edema and small peripancreatic fluid consistent with the given history of pancreatitis. Conventional pancreatic ductal anatomy. Mild dilatation of the pancreatic duct with a short segment area of transition at the pancreatic head. No definite pancreatic lesion identified of the transition point. Differential would include compression due to pancreatic edema/pancreatitis, pancreatic duct stricture or occult ductal/mucosal lesion. 2. Hepatic lesion within segment 7 measuring 12 millimeters. This finding is not seen on CT and is somewhat indeterminate in its imaging characteristics although suspect a more benign process such as focal nodular hyperplasia. Short-term follow-up in 3-6 months could be considered to ensure stability. 3. Mild gallbladder distention with pericholecystic edema, probably tracking from the pancreas. Common duct upper normal diameter. No choledocholithiasis seen. Review of Systems: See subjective Cardiac: No new chest pain/pressure/palpitations. Respiratory: no new dyspnea. GI: ONGOING ABDOMINAL DISTENSION; GAS/BURNING IN UPPER ABDOMEN. Objective: Vitals: see above Lungs: Clear. Cardiac: S1S2. abdomen: soft. tender across the epigastric. normal bowel sounds. Disposition/Potential discharge - Likely to return to previous living situation. Total time is 35 minutes with greater than 50% spent in counseling and coordination of care. Exam Const: Vital Signs, click to edit/add: Vital Signs - 24 hr 11/28/21 15:30 11/28/21 19:00 11/28/21 22:44 Temperature 97.8 F 98 F Pulse Rate [Pulse Oximeter] 69 67 71 Respiratory Rate 16 16 16 Blood Pressure [Ri ght Arm] 128/71 128/80 Pulse Oximetry 98 98 Oxygen Delivery Me thod Room Air Room Air 11/28/21 22:44 11/29/21 03:00 11/29/21 07:20 Temperature 97.7 F 97.8 F 97.7 F Pulse Rate [Pulse Oximeter] 71 65 71 Respiratory Rate 16 16 16 Blood Pressure [Ri ght Arm] 118/56 L 104/64 117/55 L Pulse Oximetry 100 98 100 Oxygen Delivery Me thod Room Air Room Air Room Air 11/29/21 11:00 Temperature 98.4 F Pulse Rate [Pulse Oximeter] 58 L Respiratory Rate 16 Blood Pressure [Ri ght Arm] 114/59 L Pulse Oximetry 99 Oxygen Delivery Me thod Room Air Labs Labs: Laboratory Results - last 24 hr 11/29/21 11/29/21 11/29/21 06:31 06:31 06:31 WBC 5.97 RBC 3.76 L Hgb 12.0 Hct 35.7 MCV 95 MCH 32 MCHC 34 Plt Count 262 INR 1.03 Sodium 137 Potassium 3.6 Chloride 109 Carbon Dioxide 20 BUN 15 Creatinine 0.5 Estimated Creat Clear 117.61 Estimated GFR 110 Glucose 59 L Calcium 8.5 Ionized Calcium Alana Magnesium 2.2 Total Bilirubin 0.5 GGT 13 AST 25 ALT 22 Alkaline Phosphatase 68 C-Reactive Protein 14.6 H Total Protein 6.5 Albumin 3.8 Amylase 2207 H Lipase 37818 H 11/29/21 06:31 WBC RBC Hgb Hct MCV MCH MCHC Plt Count INR Sodium Potassium Chloride Carbon Dioxide BUN Creatinine Estimated Creat Clear Estimated GFR Glucose Calcium Ionized Calcium Alana 1.17 Magnesium Total Bilirubin GGT AST ALT Alkaline Phosphatase C-Reactive Protein Total Protein Albumin Amylase Lipase
[2021-11-29 19:00] VITALS: BP 121/61; PULSE 65; RESP 18; TEMP 36.7; O2SAT 99
[2021-11-29] MEDS: polyethylene glycoL 3350 17 GM PACK 8.5 GM PO (19:42)
[2021-11-29 23:00] VITALS: BP 115/59; PULSE 63; RESP 16; TEMP 36.6; O2SAT 96
--- NOTE | 2021-11-29 23:47 | PC.NURSE ---
Pt up independently in room and rouse. Rates medial upper abdominal pain 1-5/10, Toradol per MAR with relief. Chicken broth for dinner, denies any increased pain or nausea post meal.
[2021-11-30] MEDS: KETOROLAC 30 MG/ML inj IVP (01:38)
[2021-11-30 03:00] VITALS: BP 112/52; PULSE 52; RESP 16; TEMP 36.6; O2SAT 97
[2021-11-30] MEDS: PANTOPRAZOLE SODIUM 40 MG INJ IVP (04:05)
[2021-11-30] MEDS: 0.9 % SODIUM CHLORIDE 1000 ml 1,000 ML 125 ML IV (04:54)
[2021-11-30] MEDS: LEVOTHYROXINE 50 MCG TABLET PO (06:07)
--- NOTE | 2021-11-30 06:40 | PC.NURSE ---
[id number] Pt rested well during night, rated pain 4/10, relief with prn toradol. Up independently in room, denies N/V.
[2021-11-30 07:08] LABS: Hematocrit 35.9 % (33.0-51.0); Hemoglobin* 12.1 gm/dL (12.0-16.0); Mean Corpuscular HGB Conc 34 gm/dL (32-36); Mean Corpuscular Hemoglobin 32 pg (26-34); Mean Corpuscular Volume 96 fL (80-100); Platelet Count* 270 K/uL (140-440); Red Blood Count 3.76 m/uL (4.00-5.20); White Blood Count* 4.71 K/uL (4.50-11.00)
[2021-11-30 07:10] LABS: HCO3 VBG 19 mmol/L (21-28); PCO2 VBG 36 mmHG (40-50); pH VBG 7.322 (7.32-7.43)
[2021-11-30 07:21] LABS: Slide Review Reflex No
[2021-11-30 07:30] VITALS: BP 108/58; PULSE 63; RESP 16; TEMP 36.6; O2SAT 98
[2021-11-30 07:33] LABS: INR 0.99 (0.91-1.10); Prothrombin Time 13.5 Seconds
[2021-11-30 07:39] LABS: Albumin* 3.9 g/dL (3.3-5.0); Chloride* 109 mmol/L (96-114)
[2021-11-30 07:40] LABS: Potassium* 3.6 mmol/L (3.6-5.1); Sodium* 138 mmol/L (135-149)
[2021-11-30 07:43] LABS: Alanine Aminotransferase* 19 U/L (4-35); Alkaline Phosphatase* 75 U/L (40-150); Aspartate Amino Transferase* 26 U/L (12-35); Bilirubin Total* 0.5 mg/dL (0.1-1.5); Blood Urea Nitrogen* 11 mg/dL (7-30); Calcium* 8.6 mg/dL (8.4-10.6); Carbon Dioxide* 17 mmol/L (20-32); Creatinine* 0.6 mg/dL (0.5-1.5); Est. Creatinine Clearance* 98.01; Estimated Glomerular Filt Rate 105 ml/min; Magnesium* 2.1 mg/dL (1.5-2.6); Total Protein* 6.6 g/dL (6.0-8.3)
[2021-11-30 07:47] LABS: NT Pro B Type NatriureticPept* 112 PG/mL (0-125)
[2021-11-30 07:48] LABS: Glucose* 48 mg/dL (60-115)
[2021-11-30 07:50] LABS: Amylase* 1581 U/L (18-89)
--- NOTE | 2021-11-30 07:51 | PC.NURSE ---
Critical lab: Glucose 48. Primary nurse and Dr. Baxter notified.
[2021-11-30 07:58] LABS: C Reactive Protein* 16.8 mg/dL (0.5-1.0)
[2021-11-30] MEDS: NYSTATIN CREAM 30 GM 1 APPLIC TOPICAL ×3 (09:19→21:00)
[2021-11-30] MEDS: FLUTICASONE PROPIONATE NASAL 1 SPRAY NOSTRIL-B ×2 (09:21→21:01)
[2021-11-30 09:44] LABS: Lipase* 11164 U/L (23-300)
--- NOTE | 2021-11-30 11:54 | P.IMPN_ITS ---
Progress Note: A&P Assessment and plan (1) Acute pancreatitis: Problem details: 1st acute/hospitalized episode 12/09 -thought about gallbladder - no acute findings, not alcohol, not triglycerides, no obvious med effect. -discussed case with Dr. 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 Finally her lipase is down trending as is her amylase. Her CRP is mildly bumped. We continue IV fluids, pain control, she has been on 3 cups of clear liquids and ice chips throughout the day we will slowly advance this today based on how she tolerates it. Working our way to a soft. Diet which is her normal baseline diet. Subjective Date Seen: 11/30/21 Interval history: Daily Progress Note - Hospital Medicine Day #: 5 CC: acute pancreatitis; unclear etiology OVERNIGHT UPDATES FROM STAFF & MED, LAB, IMAGING UPDATES improving pain. no opioids overnight. Tolerating fairly well 1 cup of clear liquids t.i.d. BS is a little low this morning; drank OJ. got some mild discomfort but it was only 5 minutes. not dizzy. CBC remains stable. Mildly acidotic with a bicarb of 19 Otherwise her metabolic panel is quite stable and reassuring. Her Mag is normal. Her calcium is normal. Normal renal function CRP is slowly trending up 14 yesterday 16 today However, her amylase and lipase are down trending nicely To this point she has had 2 contrast abdominal pelvic CTs, MRCP. 1. Reticular pancreatic edema and small peripancreatic fluid consistent with the given history of pancreatitis. Conventional pancreatic ductal anatomy. Mild dilatation of the pancreatic duct with a short segment area of transition at the pancreatic head. No definite pancreatic lesion identified of the transition point. Differential would include compression due to pancreatic edema/pancreatitis, pancreatic duct stricture or occult ductal/mucosal lesion. 2. Hepatic lesion within segment 7 measuring 12 millimeters. This finding is not seen on CT and is somewhat indeterminate in its imaging characteristics although suspect a more benign process such as focal nodular hyperplasia. Short-term follow-up in 3-6 months could be considered to ensure stability. 3. Mild gallbladder distention with pericholecystic edema, probably tracking from the pancreas. Common duct upper normal diameter. No choledocholithiasis seen. Review of Systems: See subjective Cardiac: No new chest pain/pressure/palpitations. Respiratory: no new dyspnea. GI: ONGOING ABDOMINAL DISTENSION; GAS/BURNING IN UPPER ABDOMEN. Objective: She is walking the halls. She actually hopped up from the chair and jumped into her bed. She looks much more comfortable. Vitals: see above Lungs: Clear. Cardiac: S1S2. abdomen: soft. Less tender across the epigastric. normal bowel sounds. Disposition/Potential discharge - Likely to return to previous living situation. Total time is 35 minutes with greater than 50% spent in counseling and coordination of care. Exam Const: Vital Signs, click to edit/add: Vital Signs - 24 hr 11/29/21 15:00 11/29/21 15:00 11/29/21 19:00 Temperature 98.1 F 98.1 F Pulse Rate [Pulse Oximeter] 63 63 65 Respiratory Rate 18 18 18 Blood Pressure [Ri ght Arm] 124/64 121/61 Pulse Oximetry 99 99 Oxygen Delivery Me thod Room Air Room Air 11/29/21 23:00 11/29/21 23:00 11/30/21 03:00 Temperature 97.9 F 97.9 F Pulse Rate [Pulse Oximeter] 63 63 52 L Respiratory Rate 16 16 16 Blood Pressure [Ri ght Arm] 115/59 L 112/52 L Pulse Oximetry 96 97 Oxygen Delivery Me thod Room Air Room Air 11/30/21 07:30 Temperature 97.9 F Pulse Rate [Pulse Oximeter] 63 Respiratory Rate 16 Blood Pressure [Ri ght Arm] 108/58 L Pulse Oximetry 98 Oxygen Delivery Me thod Room Air Labs Labs: Laboratory Results - last 24 hr 11/30/21 11/30/21 11/30/21 06:55 06:55 06:55 WBC 4.71 RBC 3.76 L Hgb 12.1 Hct 35.9 MCV 96 MCH 32 MCHC 34 Plt Count 270 INR 0.99 VBG pH VBG pCO2 VBG pO2 VBG HCO3 Sodium 138 Potassium 3.6 Chloride 109 Carbon Dioxide 17 L BUN 11 Creatinine 0.6 Estimated Creat Clear 98.01 Estimated GFR 105 Glucose 48 L* Calcium 8.6 Ionized Calcium Alana Magnesium 2.1 Total Bilirubin 0.5 AST 26 ALT 19 Alkaline Phosphatase 75 C-Reactive Protein 16.8 H NT-Pro-B Natriuret Pep 112 Total Protein 6.6 Albumin 3.9 Amylase 1581 H Lipase 05325 H 11/30/21 06:55 WBC RBC Hgb Hct MCV MCH MCHC Plt Count INR VBG pH 7.322 VBG pCO2 36 L VBG pO2 38.0 VBG HCO3 19 L Sodium Potassium Chloride Carbon Dioxide BUN Creatinine Estimated Creat Clear Estimated GFR Glucose Calcium Ionized Calcium Alana 1.20 Magnesium Total Bilirubin AST ALT Alkaline Phosphatase C-Reactive Protein NT-Pro-B Natriuret Pep Total Protein Albumin Amylase Lipase
[2021-11-30 12:20] VITALS: BP 117/69; PULSE 65; RESP 16; TEMP 36.6; O2SAT 100
--- NOTE | 2021-11-30 14:37 | NUTR.NU ---
RDN with MD nutrition consult for diet advancement and gluten free diet. RDN visited with patient whom agreed to education without designated caregiver present. RDN with MD nutrition consult for pancreatitis and diet advancement. Patient agreed to receive diet education related to pancreatitis. Patient was provided diet education on a low fat diet. Discussed foods to include and foods to avoid. Recommended following a low fat diet (about 60 grams/day). RDN also recommended patient follow a low-fiber diet for ~2 weeks and then slowly advancing her diet. Patient follows a gluten free diet due to history of Celiac disease and avoids certain fruits and vegetables related to history of colitis. She reports not being able to tolerate 'chunky' foods so she typically chooses soft or pureed foods. RDN spoke to culinary staff regarding patient's diet texture. Verbal and written information as well as a sample menu provided from [facility]. Patient verbalized understanding. RDN's contact information was provided and patient was encouraged to contact RDN with questions.
[2021-11-30 15:00] VITALS: BP 124/65; PULSE 71; RESP 16; TEMP 36.3; O2SAT 96
--- NOTE | 2021-11-30 16:07 | PC.NURSE ---
Pt's pain managed with increased activity and dietary advance on day shift. Pt's lab draw BG was 48 this am, pt alert and oriented, no sx of hypoglycemia. Pt received PO Ruth juice with 2 packets of sugar in it. BG check at 0900 was 119. Pt advanced to CL for lunch. Pt stated she started to feel funny after noon. Pt denied nausea or increased pain. Her only presenting symptom was a headache. Spot check of BG was 57 and pt received liquid enlive to bring her sugar up. Maintenance IVF to once pt able to take in CL diet, verbal order from Dr. Georgina Baxter. One hour later at 13:30 pt's BG was 183. I feel much better, headache gone. Pt UAL in room and hallway. Nursing will continue to monitor pt for sx of hypoglycemia. Diet advanced to pureed/soft diet from regular menu. Report to Meli [place] RN for evening shift.
[2021-11-30 19:00] VITALS: BP 119/61; PULSE 68; RESP 16; TEMP 36.3; O2SAT 100
[2021-11-30] MEDS: PSEUDOEPHEDRINE HCL 30 MG TABLET PO (21:03)
[2021-11-30] MEDS: polyethylene glycoL 3350 17 GM PACK 8.5 GM PO (21:28)
--- NOTE | 2021-11-30 22:04 | PC.NURSE ---
Shift Note [id number]: Shift unremarkable. Pt continues to ambulate frequently and denies pain. Occasional flatus and voiding regularly, no BM at this time. Tolerating puree/soft foods and clear liquids, eats very slowly per MD recommendation. VS WNL and LS COA. Pt applies vaginal creams independently and denies difficulty with application or exacerbation of vaginitis at this time.
[2021-11-30 23:00] VITALS: BP 131/68; PULSE 87; RESP 16; TEMP 36.6; O2SAT 97
[2021-12-01 03:00] VITALS: PULSE 87; RESP 16; TEMP 36.5; O2SAT 97
[2021-12-01] MEDS: PANTOPRAZOLE SODIUM 40 MG INJ IVP (03:53)
--- NOTE | 2021-12-01 05:21 | PC.NURSE ---
[id number] Pt slept well during night, denies pain, did not require any pain medication. No N/V, voiding well.
[2021-12-01] MEDS: LEVOTHYROXINE 50 MCG TABLET PO (06:11)
[2021-12-01 07:00] VITALS: BP 139/59; PULSE 77; RESP 18; TEMP 37.2; O2SAT 100
[2021-12-01 07:21] LABS: HCO3 VBG 26 mmol/L (21-28); PCO2 VBG 35 mmHG (40-50)
[2021-12-01 08:28] LABS: Chloride* 107 mmol/L (96-114); Potassium* 3.7 mmol/L (3.6-5.1); Sodium* 136 mmol/L (135-149)
[2021-12-01 08:31] LABS: Blood Urea Nitrogen* 10 mg/dL (7-30); Calcium* 9.1 mg/dL (8.4-10.6); Carbon Dioxide* 23 mmol/L (20-32); Creatinine* 0.5 mg/dL (0.5-1.5); Est. Creatinine Clearance* 117.61; Estimated Glomerular Filt Rate 110 ml/min; Glucose* 104 mg/dL (60-115)
[2021-12-01] MEDS: FLUTICASONE PROPIONATE NASAL 1 SPRAY NOSTRIL-B (08:32)
[2021-12-01] MEDS: NYSTATIN CREAM 30 GM 1 APPLIC TOPICAL (08:33)
[2021-12-01 08:57] LABS: Lipase* 9647 U/L (23-300)
[2021-12-01 11:00] VITALS: BP 108/55; PULSE 69; RESP 18; TEMP 36.6; O2SAT 100
--- NOTE | 2021-12-01 16:19 | P.DS_ITS ---
DS: Providers Provider Date Seen: 12/01/21 Date of admission: 11/28/21 19:30 Primary care physician: Leidy Saucedo PA-C Admitting Clinician: Huy Thapa MD Consults: 11/30/21 10:07 Consult to Nutrition [CONS] Routine Comment: Reason for consult:: Nutritional Consult Comment: full liquid (gluten free) until dinner then try a soft/pureed diet Attending Physician on discharge: Georgina Baxter MD Date of Discharge: 12/01/21 DS: Diagnosis Discharge Diagnosis (1) Acute pancreatitis: Status: Acute Problem details: 1st acute/hospitalized episode 12/09 -Gallbladder - no acute findings, not alcohol, not triglycerides, no obvious med effect. -discussed case with Dr. 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 [place] [facility]: Patient was given a follow-up with physician she originally had started with for suspicion of bacterial overgrowth syndrome. She can follow-up with this provider in early December and go over her pancreatitis history. REFERRALS WHILE ADMITTED: Nutrition REFERRALS AFTER DISCHARGE: GI BRIEF HOSPITAL COURSE: Mirtha presented with acute pancreatitis. She had a extremely elevated lipase, amylase. No obvious necrosis imaging. I did CT her abdomen twice and she had an MRCP while she was admitted here all pointed to acute pancreatitis without complication. Etiology for pancreatitis is not known. There was no obvious gallbladder dysfunction, alcohol intake, hypertriglyceridemia and or med effect. She slowly decreased her lipase and improved her symptoms. At discharge while her lipase was still elevated come down from its max and she was tolerating of fairly regular diet. She had not received IV opioids any pain medication in the day before discharge. She was ambulating the halls. She felt much improved. VITAL SIGN, MEDICATION, LAB/MICRO, IMAGING SUMMARY (full details available in account tabs or by records request) DISCHARGE MEDICATIONS: See Reconciled list REVIEW OF SYSTEMS No new chest pain or dyspnea Pain controlled No voiding difficulties Tolerating diet challenge PHYSICAL EXAM: CONSTITUTIONAL: Anxious, lots of questions. Movie easily. VITAL SIGNS: see record. HEENT: Normocephalic, atraumatic. PERRL, EOMI, conjunctivae pink, no scleral icterus. Ears and nose externally normal. Pharynx normal. NECK: No JVD. No carotid bruit, no thyromegaly, no adenopathy. CHEST: Clear to auscultation bilaterally. HEART: S1 and S2 normal. Edema ABDOMEN: Soft, nontender. Normal bowel sounds. MUSCULOSKELETAL: No gross joint deformity or swelling. NEURO: Cranial nerves intact. Grossly intact. No asymmetric findings. SKIN: No rashes, petechiae, concerning changes PSYCHIATRIC: Mood euthymic. DISPOSITION: Home with Time spent on discharge 37 minutes. Status at Discharge Functional status at discharge: independent ambulation Overall status at discharge: patient is progressing back to baseline Time Spent with Patient Time attestation: Total time spent providing and/or coordinating discharge services: Exam Const: Vital Signs, click to edit/add: Vital Signs - 24 hr 11/30/21 19:00 11/30/21 23:00 11/30/21 23:00 Temperature 97.4 F L 97.8 F Pulse Rate [Pulse Oximeter] 68 87 87 Respiratory Rate 16 16 16 Blood Pressure [Ri ght Arm] 119/61 131/68 Pulse Oximetry 100 97 Oxygen Delivery Me thod Room Air Room Air 12/01/21 03:00 12/01/21 07:00 12/01/21 11:00 Temperature 97.7 F 99 F 98 F Pulse Rate [Pulse Oximeter] 87 77 69 Respiratory Rate 16 18 18 Blood Pressure [Ri ght Arm] 139/59 L 108/55 L Pulse Oximetry 97 100 100 Oxygen Delivery Me thod Room Air Room Air Room Air DS: Data Data Completed and Pending Labs on day of discharge: Labs from last 24 hours 12/01/21 12/01/21 07:02 07:02 VBG pH 7.480 H VBG pCO2 35 L VBG pO2 101.0 H VBG HCO3 26 Sodium 136 Potassium 3.7 Chloride 107 Carbon Dioxide 23 BUN 10 Creatinine 0.5 Estimated Creat Clear 117.61 Estimated GFR 110 Glucose 104 Calcium 9.1 Lipase 9647 H Discharge Plan Discharge Disposition: Home, Self-Care Date of Admission: 11/28/21 19:30 Attending Provider on Discharge: Georgina Baxter Primary Care Provider: Leidy Saucedo Condition: Stable Anticipated Discharge Date/Time: 12/01/21 13:49 Discharge Medications: New omeprazole 20 mg capsule,delayed release(DR/EC) 20 mg PO DAILY Qty: 30 2RF ondansetron 4 mg tablet,disintegrating 4 mg PO Q8H Qty: 30 0RF Continued Pulmicort Flexhaler 180 mcg/actuation aerosol powdr breath activated 1 inh inhalation BID ketotifen fumarate 0.025 % (0.035 %) drops 1 drp ophthalmic (eye) BID Xiidra 5 % dropperette 1 drp ophthalmic (eye) BID Rx Instructions: administer approximately 12 hours apart estradiol 0.01 % (0.1 mg/gram) cream 1 g VAGINAL 3XW Rx Instructions: 3 TIMES WEEKLY zafirlukast 20 mg tablet 20 mg PO BID Refresh Optive Advanced 0.5-1-0.5 % drops 1 drp ophthalmic (eye) Q1H PRN hypochlorous-sod chlor-sod briana [place],Non-Aerosol 1 applic topical BID Ocusoft Lid Scrub Original Foam 1 applic topical BID fluticasone propionate 50 mcg/actuation spray,suspension 1 spray intranasal BID Rx Instructions: administer into each nostril levothyroxine 50 mcg tablet 50 mcg PO QDAY Discontinued fluconazole 150 mg tablet 150 mg PO ONCE Rx Instructions: ONE DOSE LEFT metronidazole 0.75 % (37.5mg/5 gram) gel 1 appful VAGINAL HS Discharge Orders: Discharge Order (Routine); Ordered 12/01/21 Ordered By: Georgina Baxter Patient Education: Omeprazole (By mouth), Ondansetron (By mouth), Pancreatitis (DC) Activity Restrictions/Additional Instructions: Slowly advance your diet back to your normal routine over the next 4-5 days. I recommend staying out of work and in convalescence until 12/13. Use the new meds as needed, you may find taking an acid selvin (omeprazole) or anti nausea med (zofran) helpful in the coming days. No obligation if you don't feel you need them. Activity Level: Activity as Tolerated Discharge Diet: Regular and Other Follow Up Appointments: [facility] [Provider Group] - 12/21/21 9:40 am (Dr. Bragg) Leidy Saucedo, [facility] [Primary Care Provider] - Forms: [employer] Info Instructions
== END 2021-12-01 15:30 | disposition home or self-care (01) | DRG 439 ==
LOC: ED 11-27 01:57 → MEDSURG 11-27 02:19
PROVIDERS: Admitting Provider Internal Medicine; Emergency Provider Internal Medicine; PCP Physician Assistant Medical; Visit Provider Family Medicine
DX: K85.00 Idiopathic acute pancreatitis without necrosis or infection (principal); K90.41 Non-celiac gluten sensitivity; K90.0 Celiac disease; B37.3 Candidiasis of vulva and vagina; N81.9 Female genital prolapse, unspecified; E78.5 Hyperlipidemia, unspecified; L30.9 Dermatitis, unspecified; E03.9 Hypothyroidism, unspecified; J45.909 Unspecified asthma, uncomplicated; Z86.16 Personal history of COVID-19; K76.9 Liver disease, unspecified
CPT/HCPCS: 36415; 74177; 74183; 76705; 80048; 80053; 81003; 81015; 82150; 82330; 82803; 82977; 83605; 83690; 83735; 83880; 84443; 84478; 85025; 85027; 85610; 86140; 87631; 99284; A9270; A9575; C9113; G0378; J1170; J1885; J7030; Q9967

== ENCOUNTER 2021-12-04 13:07 | Emergency (ER) | payer OTHER, SELFPAY ==
[2021-12-04 13:11] VITALS: BP 117/76; PULSE 81; RESP 18; TEMP 36.4; O2SAT 99; BMI 23.4
--- NOTE | 2021-12-04 13:36 | ED.ABDPAIN ---
HPI - Abdominal Pain General Chief Complaint: Abdominal Pain Stated Complaint: Pancreatitis pain coming back Time Seen by Provider: 12/04/21 13:09 History of Present Illness HPI narrative: Mirtha is a 56-year-old female patient presents emergency department with complaints of abdominal pain. The patient reports the pain has been present for approximately 3 days since her discharge from the hospital. Patient was recently hospitalized for pancreatitis where she received full evaluation and treatment, including MRI. Initially, on discharge, the patient reported significant improvement. However, as patient advance diet she had resumption of pain. The patient states she presented to urgent care earlier today for reevaluation of labs for concern her pancreatitis has returned, and they encouraged her to present to the emergency room. She denies nausea, vomiting, or diarrhea. She reports constipation since hospitalization secondary to limited diet. She denies fever, chills, or sweats. She has not recently been on antibiotic. Etiology of pancreatitis is unknown. Related Data Home Medications Medication Instructions Recorded Confirmed fluticasone propionate 50 1 spray intranasal BID 11/01/21 11/27/21 mcg/actuation nasal spray,suspension levothyroxine 50 mcg tablet 50 mcg PO QDAY 11/01/21 11/26/21 budesonide 180 mcg/actuation 1 inh inhalation BID 11/27/21 11/27/21 breath activated powder inhaler (Pulmicort Flexhaler) [id number] 1 drp ophthalmic (eye) Q1H PRN 11/27/21 11/27/21 80 0.5 %-1 %-0.5 % eye drops (Refresh Optive Advanced) estradiol 0.01% (0.1 mg/gram) 1 g vaginal 3XW 11/27/21 11/27/21 vaginal cream eyelid cleanser combination 7 1 applic topical BID 11/27/21 11/27/21 (Ocusoft Lid Scrub Original topical foam) hypochlorous acid-sodium 1 applic topical BID 11/27/21 11/27/21 chloride-sodium phosphate topical spray ketotifen fumarate 0.025 % (0.035 1 drp ophthalmic (eye) BID 11/27/21 11/27/21 %) eye drops lifitegrast 5 % eye drops in a 1 drp ophthalmic (eye) BID 11/27/21 11/27/21 dropperette (Xiidra) zafirlukast 20 mg tablet 20 mg PO BID 11/27/21 11/27/21 Previous Rx's Medication Instructions Recorded omeprazole 20 mg capsule,delayed 20 mg PO DAILY #30 caps 12/01/21 release ondansetron 4 mg disintegrating 4 mg PO Q8H #30 tabs 12/01/21 tablet Allergies Allergy/AdvReac Type Severity Reaction Status Date / Time Dust Allergy Intermediate Seasonal Uncoded 11/29/21 09:29 Cultivated oat pollen Allergy Mild Breathing Uncoded 11/29/21 09:29 Molds & Smuts Allergy Mild Seasonal Uncoded 11/29/21 09:29 Gluten Meal AdvReac Unknown Uncoded 11/29/21 09:29 Review of Systems Const Denies: fever, chills, fatigue or malaise ENMT Denies: throat pain or difficulty swallowing Cardio Denies: chest pain or shortness of breath with exertion Resp Denies: shortness of breath or cough GI Reports: abdominal pain; Denies: nausea, vomiting, heartburn, diarrhea, bloating, belching, excessive passing of gas, difficulty swallowing, feeling full early, change in bowel habits or blood in stool Denies: painful urination, urinary frequency, urinary urgency or blood in urine Neuro Denies: headache Endo Denies: excessive urination or fatigue PFSH PFSH Medical History (Updated 12/04/21 @ 15:47 by Isis Calero DO) Asthma (01/06/10) Celiac disease COVID Female genital prolapse Hypothyroidism Volvulus Surgical History (Updated 11/27/21 @ 14:43 by Georgina Baxter MD) History of bladder surgery History of colonoscopy History of esophagogastroduodenoscopy (EGD) History of exploratory laparotomy History of sinus surgery Status post vaginal hysterectomy Family History Family/Other Celiac disease Crohn's disease History of hyperlipidemia Diabetes Father High blood pressure Diabetes Paternal Grandfather Diabetes Paternal Grandmother Diabetes Social History (Updated 11/27/21 @ 14:44 by Georgina Baxter MD) Narrative: , 2 adult children, 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 Lives in [place] Highest level of school completed/degree received: some college, no degree Smoking Status: Never smoker Do you use any of these nicotine containing products: None Second hand tobacco smoke exposure: No How often do you have a drink containing alcohol: never How often do you have six or more drinks on one occasion: Never AUDIT-C Alcohol total score: 0 Non-prescribed substance use: denies use Caffeine: No service: No Exam Const: Vital Signs, click to edit/add: Vital Signs - 24 hr 12/04/21 13:11 12/04/21 16:11 Temperature 97.6 F Pulse Rate [Right Pulse Oximeter] 81 76 Respiratory Rate 18 16 Blood Pressure [Ri ght Upper Arm] 117/76 121/85 Pulse Oximetry 99 99 Oxygen Delivery Me thod Room Air Room Air Documenting provider has reviewed patient's vital signs: yes Common normals: no apparent distress, oriented x3, no limitations, healthy appearing, alert and well nourished General appearance: cooperative, comfortable and well developed; not in distress Orientation/consciousness: Yes awake, Yes oriented to person, Yes oriented to place and Yes oriented to time HENMT: Common normals: normocephalic and head/scalp atraumatic Head and scalp: normocephalic and atraumatic Face and sinus: normal facial exam (limited by masking) Eye: Common normals: EOMs intact bilaterally General eye: normal appearance of both eyes Resp: Common normals: normal respiratory effort, no retractions, no use of accessory muscles and clear to auscultation bilaterally Effort & inspection: able to speak in complete sentences Auscultation: clear to auscultation bilaterally Cardio: Common normals: regular rate, regular rhythm, S1 normal heart sound, S2 normal heart sound, no gallops, no clicks and no murmurs Rate: regular rate Rhythm: regular rhythm Heart sounds: S1 normal and S2 normal GI: Common normals: Normal to inspection, nondistended, normoactive bowel sounds present and soft to palpation Palpation: soft and tender Details: periumbilical : Common normals: no CVA tenderness Bladder/kidney exam: no CVA tenderness Back & Pelvis: Common normals: no CVA tenderness Extremity: Common normals: normal to inspection, full ROM and no clubbing, cyanosis or edema Neuro: Common normals: oriented x3, CN's II-XII intact bilaterally, moves all extremities, no focal motor deficits and no sensory deficits noted Sensorium/orientation: awake, alert, oriented to person, oriented to place and oriented to time Gait (neuro): normal gait Sensory exam: double simultaneous stimulation for sensation normal Motor exam: no movement abnormalities noted Psych: Common normals: mental status grossly normal, thought process normal and speech normal Appearance: grossly normal Attitude: calm Speech: normal speech Thought process: normal thought process Thought content: normal thought content Attention/concentration: attention grossly intact Memory/cognition: memory grossly intact Insight: insight good Judgement: judgment good Skin: Common normals: no rashes or lesions noted General skin exam: no rashes or lesions noted Course Course Hospital Course: Mirtha presented to the emergency department for complaints of abdominal pain with recent diagnosis of pancreatitis. The patient reports concern that her pancreatitis had returned. Her laboratory studies were ordered. Her recent labs and imaging were reviewed. She denies need for pain medication on arrival to the emergency department. She states the pain today is better than it was the night prior. Labs will be evaluated and treatment will be determined after review of labs. Reevaluation(s) Reevaluation #1: Patient was reevaluated at bedside. She is resting comfortably and receiving IVF. We are awaiting lab results for further plan. Time: 15:06 Reevaluation #2: We discussed the risk and benefit of hospitalization versus home with clear diet. The patient declines consideration of hospitalization at this time, but she will return if she has worsening or does not improve with limiting her diet to clear liquids. She and her spouse verbalize understanding and the importance of outpatient follow-up with gastroenterology. This referral is underway with her primary. Time: 15:47 Vital Signs Vital signs: Initial Vital Signs Temperature 97.6 F 12/04/21 13:11 Temperature Source Temporal Artery Scan 12/04/21 13:11 Pulse Rate 81 12/04/21 13:11 Respiratory Rate 18 12/04/21 13:11 Blood Pressure 117/76 12/04/21 13:11 Blood Pressure Mean 89 12/04/21 13:11 Blood Pressure Position Sitting 12/04/21 13:11 Pulse Oximetry 99 12/04/21 13:11 Oxygen Delivery Method 12/04/21 13:11 Vital Signs Temperature 97.6 F 12/04/21 13:11 Pulse Rate 81 12/04/21 13:11 Respiratory Rate 18 12/04/21 13:11 Blood Pressure 117/76 12/04/21 13:11 Pulse Oximetry 99 12/04/21 13:11 Oxygen Delivery Method 12/04/21 13:11 Temperature 97.6 F 12/04/21 13:11 Pulse Rate 76 12/04/21 16:11 Respiratory Rate 16 12/04/21 16:11 Blood Pressure 121/85 12/04/21 16:11 Pulse Oximetry 99 12/04/21 16:11 Oxygen Delivery Method 12/04/21 16:11 MDM - Abdominal Pain MDM Narrative Medical decision making narrative: During the evaluation of this patient consider multiple differential diagnosis considerations. The life-threatening differential diagnoses considered include: Appendicitis, aortic aneurysm, mesenteric ischemia, bowel perforation, volvulus, and bowel obstruction. Other differential diagnoses include but are not limited to: Inflammatory bowel disease, cholecystitis, pancreatitis, hepatitis, gastritis, GERD, diverticulitis, peptic ulcer disease, pyelonephritis/UTI, renal colic/stone, diseases of the genitourinary system and reproductive system, as well as the other etiologies. Medical Records Attestation: I reviewed the patient's medical records. Lab Data Attestation: I reviewed the patient's lab results. Labs: Lab Results 12/04/21 12/04/21 12/04/21 Range/Units 13:52 14:03 14:03 WBC 5.64 (4.50-11.00) K/uL RBC 3.99 L (4.00-5.20) m/uL Hgb 12.5 (12.0-16.0) gm/dL Hct 37.6 (33.0-51.0) % MCV 94 (80-100) fL MCH 31 (26-34) pg MCHC 33 (32-36) gm/dL RDW Coeff of Grabiel 13.0 (11.5-15.5) % Plt Count 325 (140-440) K/uL Neut % (Auto) 64.1 (42.0-72.0) % Lymph % (Auto) 22.7 (20-44) % [place] % (Auto) 11.0 (0.0-11.0) % Eos % (Auto) 1.6 (0.0-7.0) % Baso % (Auto) 0.4 (0.0-3.0) % Neut # (Auto) 3.62 (1.7-7.0) K/uL Lymph # (Auto) 1.28 (0.90-2.90) K/uL [place] # (Auto) 0.60 (0.00-0.90) K/UL Eos # (Auto) 0.09 (0.00-0.50) K/uL Baso # (Auto) 0.02 (0.00-0.30) K/uL Abs Immat Gran (auto) 0.01 (0.00-0.30) K/uL Sodium 137 (135-149) mmol/L Potassium 4.1 (3.6-5.1) mmol/L Chloride 97 (96-114) mmol/L Carbon Dioxide 30 (20-32) mmol/L BUN 23 (7-30) mg/dL Creatinine 0.8 (0.5-1.5) mg/dL Estimated Creat Clear 73.51 Estimated GFR 86 ml/min Glucose 92 (60-115) mg/dL Calcium 9.7 (8.4-10.6) mg/dL Total Bilirubin 0.2 (0.1-1.5) mg/dL GGT 14 (8-55) U/L AST 26 (12-35) U/L ALT 22 (4-35) U/L Alkaline Phosphatase 79 (40-150) U/L Total Protein 7.5 (6.0-8.3) g/dL Albumin 4.4 (3.3-5.0) g/dL Amylase 694 H (18-89) U/L Lipase 64526 H (23-300) U/L Urine Color Yellow (Yellow) Urine Appearance Clear (Clear) Urine pH 7.5 (5.0-8.5) Ur Specific [place] 1.015 (1.000-1.030) Urine Protein Negative (Negative) Urine Glucose (UA) Negative (Negative) Urine Ketones Negative (Negative) Urine Blood Negative (Negative) Urine Nitrite Negative (Negative) Urine Bilirubin Negative (Negative) Urine Urobilinogen 0.2 (0.2-1.0) Ur Leukocyte Esterase Negative (Negative) Discharge Plan Discharge Clinical Impression: Acute pancreatitis Patient Disposition: Home, Self-Care Condition: Improved Instructions: Pancreatitis (ED) Additional Instructions: Thank you for choosing [facility] for your care today. Drink plenty of water and consider using electrolyte replacement like Gatorade or substitute. Add probiotic of choice - Culturelle, OffiSync, or Seadev-FermenSys - or substitute. Hold diet to clear liquids for the next 48-72 hours. Then, eat a bland diet and advance as tolerated. Diet should include bananas, rice, applesauce, and toast (BRAT diet) and other bland foods. Attempt to avoid pork, citrus, tomato-based foods, and gluten products. Avoid greasy and fatty foods, as they can worsen your conditions. Slowly advance diet as tolerated. If your symptoms worsen or persist, consider returning for admission and IVF. I recommend calling primary care for follow-up in the next 3-5 days for reevaluation of symptoms and repeat of labs. If new or worsening symptoms develop or you have any concerns in the meantime, please call your primary care clinic or return to the ER for re-evaluation. Activity Level: No Restrictions and Activity as Tolerated Discharge Diet: Clear Liquid Diabetic Prescriptions: No Action Pulmicort Flexhaler 180 mcg/actuation aerosol powdr breath activated 1 inh inhalation BID ketotifen fumarate 0.025 % (0.035 %) drops 1 drp ophthalmic (eye) BID Xiidra 5 % dropperette 1 drp ophthalmic (eye) BID Rx Instructions: administer approximately 12 hours apart estradiol 0.01 % (0.1 mg/gram) cream 1 g VAGINAL 3XW Rx Instructions: 3 TIMES WEEKLY zafirlukast 20 mg tablet 20 mg PO BID Refresh Optive Advanced 0.5-1-0.5 % drops 1 drp ophthalmic (eye) Q1H PRN hypochlorous-sod chlor-sod briana [place],Non-Aerosol 1 applic topical BID Ocusoft Lid Scrub Original Foam 1 applic topical BID omeprazole 20 mg capsule,delayed release(DR/EC) 20 mg PO DAILY Qty: 30 2RF ondansetron 4 mg tablet,disintegrating 4 mg PO Q8H Qty: 30 0RF fluticasone propionate 50 mcg/actuation spray,suspension 1 spray intranasal BID Rx Instructions: administer into each nostril levothyroxine 50 mcg tablet 50 mcg PO QDAY Follow Up/Referrals: Leidy Saucedo PA-C [Primary Care Provider] - 7 Days (Consider GI evaluation for h/o bowel, gastric, and now pancreatic complaints. Please repeat labs trending pancreatic enzymes to baseline.) Stand Alone Forms: [employer] Info Instructions
[2021-12-04 13:59] LABS: Appearance Urine Clear (Clear); Bilirubin Urine Negative (Negative); Blood Urine Negative (Negative); Color Urine Yellow (Yellow); Glucose Urine Negative (Negative); Ketones Urine Negative (Negative); Leukocyte Esterase Urine Negative (Negative); Nitrite Urine Negative (Negative); Protein Urine Negative (Negative); Specific Gravity Urine 1.015 (1.000-1.030); Urobilinogen Urine 0.2 (0.2-1.0); pH Urine 7.5 (5.0-8.5)
[2021-12-04 14:14] LABS: Basophils Absolute Auto 0.02 K/uL (0.00-0.30); Basophils Percent Auto 0.4 % (0.0-3.0); Eosinophils Absolute Auto 0.09 K/uL (0.00-0.50); Eosinophils Percent Auto 1.6 % (0.0-7.0); Hematocrit 37.6 % (33.0-51.0); Hemoglobin* 12.5 gm/dL (12.0-16.0); Immature Granulocytes Abs Auto 0.01 K/uL (0.00-0.30); Lymphocytes Absolute Auto 1.28 K/uL (0.90-2.90); Lymphocytes Percent Auto 22.7 % (20-44); Mean Corpuscular HGB Conc 33 gm/dL (32-36); Mean Corpuscular Hemoglobin 31 pg (26-34); Mean Corpuscular Volume 94 fL (80-100); Neutrophils Absolute Auto 3.62 K/uL (1.7-7.0); Neutrophils Percent Auto 64.1 % (42.0-72.0); Platelet Count* 325 K/uL (140-440); Red Blood Count 3.99 m/uL (4.00-5.20); White Blood Count* 5.64 K/uL (4.50-11.00)
[2021-12-04] MEDS: 0.9 % SODIUM CHLORIDE 1000 ml 1,000 ML IV (14:18)
[2021-12-04 14:19] LABS: Slide Review Reflex No
[2021-12-04 14:35] LABS: Albumin* 4.4 g/dL (3.3-5.0); Chloride* 97 mmol/L (96-114); Potassium* 4.1 mmol/L (3.6-5.1); Sodium* 137 mmol/L (135-149)
[2021-12-04 14:37] LABS: Amylase* 694 U/L (18-89)
[2021-12-04 14:38] LABS: Alkaline Phosphatase* 79 U/L (40-150); Aspartate Amino Transferase* 26 U/L (12-35); Bilirubin Total* 0.2 mg/dL (0.1-1.5); Blood Urea Nitrogen* 23 mg/dL (7-30); Calcium* 9.7 mg/dL (8.4-10.6); Carbon Dioxide* 30 mmol/L (20-32); Creatinine* 0.8 mg/dL (0.5-1.5); Est. Creatinine Clearance* 73.51; Estimated Glomerular Filt Rate 86 ml/min; Gamma Glutamyl Transpeptidase* 14 U/L (8-55); Glucose* 92 mg/dL (60-115); Total Protein* 7.5 g/dL (6.0-8.3)
[2021-12-04 14:39] LABS: Alanine Aminotransferase* 22 U/L (4-35)
[2021-12-04 15:25] LABS: Lipase* 10654 U/L (23-300)
[2021-12-04 16:11] VITALS: BP 121/85; PULSE 76; RESP 16; O2SAT 99
== END 2021-12-04 16:13 | disposition home or self-care (01) ==
PROVIDERS: Emergency Provider Family Medicine; PCP Physician Assistant Medical
DX: K85.90 Acute pancreatitis without necrosis or infection, unspecified (principal)
CPT/HCPCS: 36415; 80053; 81003; 82150; 82977; 83690; 85025; 99283; 99284; J7030

== ENCOUNTER 2021-12-08 12:01 | Outpatient (CLI) | payer OTHER, SELFPAY ==
[2021-12-08 22:45] LABS: Amylase* 217 U/L (18-89)
[2021-12-08 22:51] LABS: Lipase* 3284 U/L (23-300)
== END 2021-12-08 12:02 | disposition home or self-care (01) ==
PROVIDERS: PCP Physician Assistant Medical; Visit Provider Physician Assistant Medical
DX: K85.90 Acute pancreatitis without necrosis or infection, unspecified (principal)
CPT/HCPCS: 82150; 83690

== ENCOUNTER 2022-07-05 08:35 | Outpatient (CLI) | payer OTHER, SELFPAY | END 2022-07-05 08:36 | disposition home or self-care (01) | PROVIDERS: PCP Physician Assistant Medical; Visit Provider Physician Assistant Medical | DX: Z00.00 Encounter for general adult medical examination without abnormal findings (principal); E03.9 Hypothyroidism, unspecified; Z13.6 Encounter for screening for cardiovascular disorders | CPT/HCPCS: 80053; 80061; 84443 ==

== ENCOUNTER 2022-09-10 19:59 | Emergency (ER) | payer OTHER, SELFPAY ==
[2022-09-10] VITALS (12 sets, daily range): BP systolic 92–108; BP diastolic 70–73; PULSE 80–93; RESP 22; TEMP 36.3; O2SAT 94–99; BMI 22.7
--- NOTE | 2022-09-10 20:19 | ED_ITS ---
HPI - Abdominal Pain General Time Seen by Provider: 20:19 Date Seen: 09/10/22 Chief Complaint: Abdominal Pain Stated Complaint: bad stomach pain Time Seen by Provider: 09/10/22 20:19 Source: patient and RN notes reviewed Mode of arrival: ambulatory Limitations: no limitations History of Present Illness HPI narrative: Patient is a 56-year-old female coming in with abdominal discomfort, diarrhea. She is having lots of upper abdominal burning and belching. Feels like she is having heartburn. She has had many episodes of nonbloody diarrhea starting at about 3:00 p.m. yesterday. She has had a history of pancreatitis before, upper abdominal symptoms seems somewhat reminiscent of that. She has had no fevers or chills. She has had no history of C difficile colitis. She does have a history of collagenous colitis maybe about 15 years ago, no recurrence. She has had a volvulus surgery and then bladder sling with revision and mesh. She notes that she has been able to drink some fluids but oral intake is down., she is not eating anything. 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 She just wanted to make sure that this was not something like pancreatitis potentially that she was missing. MD elicited complaint: abdominal pain Related Data Patient : No Home Medications Medication Instructions Recorded Confirmed fluticasone propionate 50 1 spray intranasal BID 11/01/21 09/10/22 mcg/actuation nasal spray,suspension budesonide 180 mcg/actuation 1 inh inhalation BID 11/27/21 09/10/22 breath activated powder inhaler (Pulmicort Flexhaler) bedtixpqsxsuldwuuxnnce-imjhqymc-diryoobu 1 drp ophthalmic (eye) Q1H PRN 11/27/21 09/10/22 80 0.5 %-1 %-0.5 % eye drops (Refresh Optive Advanced) estradiol 0.01% (0.1 mg/gram) 1 g vaginal 3XW 11/27/21 09/10/22 vaginal cream eyelid cleanser combination 7 1 applic topical BID 11/27/21 09/10/22 (Ocusoft Lid Scrub Original topical foam) hypochlorous acid-sodium 1 applic topical BID 11/27/21 09/10/22 chloride-sodium phosphate topical spray ketotifen fumarate 0.025 % (0.035 1 drp ophthalmic (eye) BID 11/27/21 09/10/22 %) eye drops lifitegrast 5 % eye drops in a 1 drp ophthalmic (eye) BID 11/27/21 09/10/22 dropperette (Xiidra) zafirlukast 20 mg tablet 20 mg PO BID 11/27/21 09/10/22 Previous Rx's Medication Instructions Recorded acetic acid 2 % ear solution 2 drp otic (ear) BID #15 mL 12/07/21 levothyroxine 50 mcg tablet 50 mcg PO DAILY #90 tabs 08/31/22 Allergies Allergy/AdvReac Type Severity Reaction Status Date / Time Dust Allergy Intermediate Seasonal Uncoded 09/10/22 21:53 Cultivated oat pollen Allergy Mild Breathing Uncoded 09/10/22 21:53 Molds & Smuts Allergy Mild Seasonal Uncoded 09/10/22 21:53 Gluten Meal AdvReac Unknown Uncoded 09/10/22 21:53 Review of Systems Status of ROS Reports: 6 or more systems reviewed and unremarkable except as noted in History and below PFSH PFS Medical History History of pancreatitis ?Z87.19 - Personal history of other diseases of the digestive system (ICD-10) COVID ?U07.1 - COVID-19 (ICD-10) Volvulus ?K56.2 - Volvulus (ICD-10) Acute pancreatitis ?K85.90 - Acute pancreatitis without necrosis or infection, unspecified (ICD- 10) Surgical History History of surgery ?Z98.890 - Other specified postprocedural states (ICD-10) History of surgery ?Z98.890 - Other specified postprocedural states (ICD-10) History of exploratory laparotomy ?Z98.890 - Other specified postprocedural states (ICD-10) Status post vaginal hysterectomy ?Z90.710 - Acquired absence of both cervix and uterus (ICD-10) History of sinus surgery ?Z98.890 - Other specified postprocedural states (ICD-10) History of esophagogastroduodenoscopy (EGD) ?Z98.890 - Other specified postprocedural states (ICD-10) History of colonoscopy ?Z98.890 - Other specified postprocedural states (ICD-10) History of bladder surgery ?Z98.890 - Other specified postprocedural states (ICD-10) Family History Family/Other Celiac disease Crohn's disease History of hyperlipidemia Diabetes Father High blood pressure Diabetes Paternal Grandfather Diabetes Paternal Grandmother Diabetes Social History Narrative: , 2 adult children, 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 Lives in [place] Highest level of school completed/degree received: some college, no degree Smoking Status: Never smoker Do you use any of these nicotine containing products: None Second hand tobacco smoke exposure: No How often do you have a drink containing alcohol: never How often do you have six or more drinks on one occasion: Never AUDIT-C Alcohol total score: 0 Non-prescribed substance use: denies use Caffeine: No service: No Exam Const: Vital Signs, click to edit/add: Vital Signs - 24 hr 09/10/22 20:06 Temperature 97.4 F L Pulse Rate [Pulse Oximeter] 93 Respiratory Rate 22 Blood Pressure [Ri ght Upper Arm] 108/70 Pulse Oximetry 99 Oxygen Delivery Me thod Room Air Patient was ambulatory into the ED of her own accord. Documenting provider has reviewed patient's vital signs: yes Common normals: no apparent distress, average body habitus, oriented x3, no limitations and alert General appearance: cooperative, well kempt, well developed and ill appearing HENMT: Common normals: normocephalic, head/scalp atraumatic, hearing grossly normal bilaterally and external nose normal Head and scalp: normocephalic and atraumatic Face and sinus: normal facial exam Nose: external nose normal Eye: Common normals: PERRL, EOMs intact bilaterally, conjunctivae normal and no scleral icterus Conjunctiva: conjunctiva(e) normal Pupil: PERRL Neck & C-Spine: Common normals: full ROM, no lymphadenopathy, supple, no meningeal signs, no JVD and thyroid normal Thyroid: thyroid normal Resp: Common normals: normal respiratory effort (Sits up easily for me to listen to her lungs), no retractions, no use of accessory muscles and clear to auscultation bilaterally Effort & inspection: able to speak in complete sentences Auscultation: clear to auscultation bilaterally Cardio: Common normals: no JVD, regular rate, regular rhythm, S1 normal heart sound, S2 normal heart sound, no gallops, no clicks and no murmurs Rate: regular rate Rhythm: regular rhythm Heart sounds: S1 normal and S2 normal GI: Other: Patient's abdomen is not overtly distended. Bowel sounds initially seemed somewhat distant but then did hear some low tone bowel sounds. There is certainly no rashing or high-pitched bowel sounds. She is not really tender anywhere in a specific distribution, certainly no rebound or guarding. Neuro: Common normals: oriented x3 Sensorium/orientation: alert Meningeal signs: no meningeal signs Psych: Appearance: well kempt Course Course Hospital Course: Reviewed with patient that I certainly do suspect this is likely a gastroenteritis. Dyspepsia/heartburn can be significant with some of the viral gastroenteritis. We can check her stool for C difficile just to ensure she has not developed community-acquired C difficile colitis, does work in a daycare. She certainly endorses gastroenteritis symptoms within the daycare. We will get labs including lipase to ensure that this is not pancreatitis. She has lots of diarrhea with this which would not be a typical symptom for pancreatitis. Will obtain flat and upright to start with to look for any bowel pathology suggestive of any obstructive issues. This again would be unlikely given her diarrhea. If she has significantly elevated labs or concerning labs with an elevated lipase, she understands that we may need to proceed with CT imaging. Will treat with a L of IV fluids, some IV Protonix for her dyspepsia symptoms and 4 mg IV Zofran. We will be transferring care to Dr. Kulkarni. Vital Signs Vital signs: Initial Vital Signs Temperature 97.4 F L 09/10/22 20:06 Temperature Source Temporal Artery Scan 09/10/22 20:06 Pulse Rate 93 09/10/22 20:06 Pulse Rhythm Regular 09/10/22 20:06 Respiratory Rate 22 09/10/22 20:06 Blood Pressure 108/70 09/10/22 20:06 Blood Pressure Mean 82 09/10/22 20:06 Blood Pressure Position Sitting 09/10/22 20:06 Pulse Oximetry 99 09/10/22 20:06 Oxygen Delivery Method Room Air 09/10/22 20:06 Vital Signs Temperature 97.4 F L 09/10/22 20:06 Pulse Rate 93 09/10/22 20:06 Respiratory Rate 22 09/10/22 20:06 Blood Pressure 108/70 09/10/22 20:06 Pulse Oximetry 99 09/10/22 20:06 Oxygen Delivery Method Room Air 09/10/22 20:06 Temperature 97.4 F L 09/10/22 20:06 Pulse Rate 85 09/11/22 03:19 Respiratory Rate 16 09/11/22 03:19 Blood Pressure 99/56 L 09/11/22 03:19 Pulse Oximetry 99 09/11/22 03:19 Oxygen Delivery Method Room Air 09/10/22 20:06 MDM - Abdominal Pain Lab Data Attestation: I reviewed the patient's lab results. Labs: Lab Results 09/10/22 09/10/22 Range/Units 20:24 20:35 WBC 6.45 (4.50-11.00) K/uL RBC 4.43 (4.00-5.20) m/uL Hgb 14.1 (12.0-16.0) gm/dL Hct 41.6 (33.0-51.0) % MCV 94 (80-100) fL MCH 32 (26-34) pg MCHC 34 (32-36) gm/dL RDW Coeff of Grabiel 14.1 (11.5-15.5) % Plt Count 266 (140-440) K/uL Neut % (Auto) 77.7 H (42.0-72.0) % Lymph % (Auto) 13.2 L (20-44) % [place] % (Auto) 8.5 (0.0-11.0) % Eos % (Auto) 0.2 (0.0-7.0) % Baso % (Auto) 0.2 (0.0-3.0) % Neut # (Auto) 5.00 (1.7-7.0) K/uL Lymph # (Auto) 0.90 (0.90-2.90) K/uL [place] # (Auto) 0.50 (0.00-0.90) K/UL Eos # (Auto) 0.01 (0.00-0.50) K/uL Baso # (Auto) 0.01 (0.00-0.30) K/uL Sodium 132 L (135-149) mmol/L Potassium 2.8 L* (3.6-5.1) mmol/L Chloride 101 (96-114) mmol/L Carbon Dioxide 20 (20-32) mmol/L BUN 20 (7-30) mg/dL Creatinine 0.5 (0.5-1.5) mg/dL Estimated Creat Clear 122.17 Estimated GFR 110 ml/min Glucose 115 (60-115) mg/dL Lactate 0.8 (0.5-1.9) mmol/L Calcium 8.6 (8.4-10.6) mg/dL Total Bilirubin 0.5 (0.1-1.5) mg/dL AST 40 H (12-35) U/L ALT 50 H (4-35) U/L Alkaline Phosphatase 53 (40-150) U/L C-Reactive Protein 5.5 H (0.5-1.0) mg/dL Total Protein 6.9 (6.0-8.3) g/dL Albumin 4.1 (3.3-5.0) g/dL Lipase 35 (23-300) U/L Stl C. diff Tox B Gene Negative (Negative) Stl C. diff [id number] PRESUMPTIVE NEGATIVE (Negative) Imaging Data Abdominal x-ray: My impression: A my preliminary review, see significant air-fluid levels and dilated bowel. Will be ordering CT of her abdomen pelvis for further evaluation. CT scan - abdomen: Attestation: I have reviewed the pertinent imaging results. Radiologist's impression: Patient: [facility] Facility:?[facility] Patient ID:?[id number] Site Patient ID:?[id number]. Site :?[id number] Study:?CT Abdomen/Pelvis -09/10/2022 9:52:22 PM Ordering Physician:Smitha Olivo Final Report: INDICATION: Abdominal pain with nausea and diarrhea. Abnormal abdominal radiograph. COMPARISON: Abdominal radiograph from today. CT of the abdomen and pelvis from 11/28/2021. TECHNIQUE: CT examination of the abdomen and pelvis was performed with the uneventful intravenous administration of 66 cc of Isovue 370 while 3 mm thick axial sections were obtained from the lung bases through the pubic symphysis. Oral contrast was not administered. Please note that all CT scans at this facility use dose modulation, iterative reconstruction, and/or weight-based dosing when appropriate to reduce radiation dose to as low as reasonably achievable. FINDINGS: There is the new fluid distending the entire colon, with no residual fecal material. There is also aim moderate amount of fluid throughout the mid and distal small bowel with mild dilatation of the mid small bowel, but without dilatation of the distal small bowel. There is no sign of mucosal thickening of the colon or the distal small bowel. There is mild mucosal thickening of the proximal and mid small bowel. The findings are consistent with enteritis resulting in prominent diarrhea. In the abdomen, the liver, spleen, pancreas, and adrenals are normal in appearance. The previous findings of pancreatitis involving the pancreatic head has resolved. The kidneys are normal in appearance. There is new mild dilatation of the ureters bilaterally, probably related to mild distention of the urinary bladder. The gallbladder is normal in appearance. The abdominal aorta is normal in caliber with no sign of dilatation. There is no sign of retroperitoneal mass or adenopathy. The stomach is normal in appearance. In the pelvis, the appendix is normal in appearance with no sign of inflammatory process. The uterus is again seen to be absent and the adnexal regions are normal in appearance. The urinary bladder is normal in appearance. There is no sign of pelvic or inguinal mass or adenopathy. There is no sign of free air or free fluid in the abdomen or pelvis. The lung bases are clear. Again seen is mild scoliosis of the thoracic spine convex towards the left. IMPRESSION: Findings of enteritis resulting in prominent diarrhea. No sign of any colitis. CT of the abdomen resolution of previously seen pancreatitis involving the pancreatic head. CT of the pelvis shows changes of hysterectomy. Please note that all CT scans at this facility use dose modulation, iterative reconstruction, and/or weight-based dosing when appropriate to reduce radiation dose to as low as reasonably achievable. Dictated by Oz Casillas MD @ 09/10/2022 11:01:46 PM (Electronic Signature) Discharge Plan Discharge Clinical Impression: Enteritis Patient Disposition: Home w/ Parent or Adult Condition: Stable Additional Instructions: Focus on small frequent fluid intake. Popsicles and Jell-O count. Slow advance of diet over the next 24-36 hours. Diluted juices, soup broths, crackers, toast, rice. Return for intractable vomiting, marked increase in pain, copious diarrhea or just feel like you not keeping up with your fluids, fever . We gave yellow Head start here tonight. You are a little low on potassium presumably from the diarrhea. I would recheck this in about a week. Can give this illness about 5 days to pass unless really seems to be worsening as above. Follow up at that time. Wray and Teresoan from [facility] if needed. Prescriptions: No Action acetic acid 2 % solution 2 drp otic (ear) BID Qty: 15 10RF Rx Instructions: apply to (cotton) wick; replace wick every 24 hours Pulmicort Flexhaler 180 mcg/actuation aerosol powdr breath activated 1 inh inhalation BID ketotifen fumarate 0.025 % (0.035 %) drops 1 drp ophthalmic (eye) BID Xiidra 5 % dropperette 1 drp ophthalmic (eye) BID Rx Instructions: administer approximately 12 hours apart estradiol 0.01 % (0.1 mg/gram) cream 1 g VAGINAL 3XW Rx Instructions: 3 TIMES WEEKLY zafirlukast 20 mg tablet 20 mg PO BID Refresh Optive Advanced 0.5-1-0.5 % drops 1 drp ophthalmic (eye) Q1H PRN hypochlorous-sod chlor-sod [place],Non-Aerosol 1 applic topical BID Ocusoft Lid Scrub Original Foam 1 applic topical BID fluticasone propionate 50 mcg/actuation spray,suspension 1 spray intranasal BID Rx Instructions: administer into each nostril levothyroxine 50 mcg tablet 50 mcg PO DAILY Qty: 90 1RF Follow Up/Referrals: Leidy Saucedo PA-C [Primary Care Provider] - Stand Alone Forms: [facility] Info Instructions
--- NOTE | 2022-09-10 20:24 | CRLHL7_ITS ---
For Patients: As a result of the Century Cures Act, medical imaging exams and procedure reports are released immediately into your electronic medical record. You may view this report before your referring provider. If you have questions, please contact your health care provider. INDICATION: Nausea, diarrhea. COMPARISON: CT of the abdomen and pelvis 11/28/2021. Abdominal radiograph 07/29/2014. TECHNIQUE: Abdomen 4 view. FINDINGS: There are multiple distended small bowel loops throughout the abdomen with air-fluid levels. Findings could be seen with ileus or obstruction. Diffuse gaseous distention of the colon. No significant formed stool. No sign of pneumatosis or free air. The lung bases are clear. The bones are unremarkable. IMPRESSION: 1. Multiple distended small bowel loops with air-fluid levels. Finding could be seen with ileus or obstruction. 2. Diffuse gaseous distention of the colon. Dictated by Vanda Villa MD @ 09/10/2022 10:01:06 PM (Electronically Signed)
[2022-09-10 20:44] LABS: Lactate* 0.8 mmol/L (0.5-1.9)
[2022-09-10 20:49] LABS: Basophils Absolute Auto 0.01 K/uL (0.00-0.30); Basophils Percent Auto 0.2 % (0.0-3.0); Eosinophils Absolute Auto 0.01 K/uL (0.00-0.50); Eosinophils Percent Auto 0.2 % (0.0-7.0); Hematocrit 41.6 % (33.0-51.0); Hemoglobin* 14.1 gm/dL (12.0-16.0); Immature Granulocytes Abs Auto 0.01 K/uL (0.00-0.30); Immature Granulocytes Pct Auto 0.2 %; Lymphocytes Percent Auto 13.2 % (20-44); Mean Corpuscular HGB Conc 34 gm/dL (32-36); Mean Corpuscular Hemoglobin 32 pg (26-34); Mean Corpuscular Volume 94 fL (80-100); Monocytes Percent Auto 8.5 % (0.0-11.0); Neutrophils Percent Auto 77.7 % (42.0-72.0); Platelet Count* 266 K/uL (140-440); RDW Coefficient of Variation % 14.1 % (11.5-15.5); Red Blood Count 4.43 m/uL (4.00-5.20); White Blood Count* 6.45 K/uL (4.50-11.00)
[2022-09-10] MEDS: 0.9 % SODIUM CHLORIDE 1000 ml 1,000 ML 500 ML IV (20:50)
[2022-09-10 20:51] LABS: Slide Review Reflex No
--- NOTE | 2022-09-10 20:52 | CRLHL7_ITS ---
For Patients: As a result of the Century Cures Act, medical imaging exams and procedure reports are released immediately into your electronic medical record. You may view this report before your referring provider. If you have questions, please contact your health care provider. INDICATION: Abdominal pain with nausea and diarrhea. Abnormal abdominal radiograph. COMPARISON: Abdominal radiograph from today. CT of the abdomen and pelvis from 11/28/2021. TECHNIQUE: CT examination of the abdomen and pelvis was performed with the uneventful intravenous administration of 66 cc of Isovue 370 while 3 mm thick axial sections were obtained from the lung bases through the pubic symphysis. Oral contrast was not administered. Please note that all CT scans at this facility use dose modulation, iterative reconstruction, and/or weight-based dosing when appropriate to reduce radiation dose to as low as reasonably achievable. FINDINGS: There is the new fluid distending the entire colon, with no residual fecal material. There is also aim moderate amount of fluid throughout the mid and distal small bowel with mild dilatation of the mid small bowel, but without dilatation of the distal small bowel. There is no sign of mucosal thickening of the colon or the distal small bowel. There is mild mucosal thickening of the proximal and mid small bowel. The findings are consistent with enteritis resulting in prominent diarrhea. In the abdomen, the liver, spleen, pancreas, and adrenals are normal in appearance. The previous findings of pancreatitis involving the pancreatic head has resolved. The kidneys are normal in appearance. There is new mild dilatation of the ureters bilaterally, probably related to mild distention of the urinary bladder. The gallbladder is normal in appearance. The abdominal aorta is normal in caliber with no sign of dilatation. There is no sign of retroperitoneal mass or adenopathy. The stomach is normal in appearance. In the pelvis, the appendix is normal in appearance with no sign of inflammatory process. The uterus is again seen to be absent and the adnexal regions are normal in appearance. The urinary bladder is normal in appearance. There is no sign of pelvic or inguinal mass or adenopathy. There is no sign of free air or free fluid in the abdomen or pelvis. The lung bases are clear. Again seen is mild scoliosis of the thoracic spine convex towards the left. IMPRESSION: Findings of enteritis resulting in prominent diarrhea. No sign of any colitis. CT of the abdomen resolution of previously seen pancreatitis involving the pancreatic head. CT of the pelvis shows changes of hysterectomy. Please note that all CT scans at this facility use dose modulation, iterative reconstruction, and/or weight-based dosing when appropriate to reduce radiation dose to as low as reasonably achievable. Dictated by Oz Casillas MD @ 09/10/2022 11:01:46 PM (Electronically Signed)
[2022-09-10] MEDS: ONDANSETRON 2 MG/ML inj 4 MG IVP (21:00)
[2022-09-10] MEDS: PANTOPRAZOLE SODIUM 40 MG INJ IVP (21:05)
[2022-09-10 21:12] LABS: Albumin* 4.1 g/dL (3.3-5.0); Chloride* 101 mmol/L (96-114)
[2022-09-10 21:13] LABS: Sodium* 132 mmol/L (135-149)
[2022-09-10 21:14] LABS: Lipase* 35 U/L (23-300)
[2022-09-10 21:15] LABS: Alkaline Phosphatase* 53 U/L (40-150); Aspartate Amino Transferase* 40 U/L (12-35); Bilirubin Total* 0.5 mg/dL (0.1-1.5); Carbon Dioxide* 20 mmol/L (20-32); Creatinine* 0.5 mg/dL (0.5-1.5); Est. Creatinine Clearance* 122.17; Estimated Glomerular Filt Rate 110 ml/min; Total Protein* 6.9 g/dL (6.0-8.3)
[2022-09-10 21:16] LABS: Alanine Aminotransferase* 50 U/L (4-35); Blood Urea Nitrogen* 20 mg/dL (7-30); Calcium* 8.6 mg/dL (8.4-10.6); Glucose* 115 mg/dL (60-115)
[2022-09-10 21:18] LABS: C Reactive Protein* 5.5 mg/dL (0.5-1.0)
[2022-09-10 21:31] LABS: Potassium* 2.8 mmol/L (3.6-5.1)
[2022-09-10 21:33] LABS: C.Difficile Negative (Negative); CDIFFEPI 027 PRESUMPTIVE NEGATIVE (Negative)
[2022-09-10] MEDS: POTASSIUM CHLORIDE 10 MEQ/100 ML PIGGYBACK 100 MEQ IVPB ×2 (22:55→23:55)
[2022-09-10] MEDS: 0.9 % SODIUM CHLORIDE 1000 ml 1,000 ML IV (23:26)
[2022-09-11] VITALS: PULSE 80; O2SAT 96
[2022-09-11 00:12] VITALS: BP 99/56
[2022-09-11] MEDS: HYOSCYAMINE SULFATE 0.125 MG TAB 0.25 MG SUBLINGUAL (01:33)
[2022-09-11] MEDS: SIMETHICONE 80 MG TAB.CHEW 320 MG PO (01:33)
[2022-09-11] MEDS: KETOROLAC 15 MG/ML inj IVP (02:33)
[2022-09-11] MEDS: MORPHINE 2 MG/ML inj IVP (02:34)
[2022-09-11 03:19] VITALS: BP 99/56; PULSE 85; RESP 16; O2SAT 99
== END 2022-09-11 03:19 | disposition home or self-care (01) ==
PROVIDERS: Emergency Provider Family Medicine; PCP Physician Assistant Medical
DX: K52.9 Noninfective gastroenteritis and colitis, unspecified (principal)
CPT/HCPCS: 36415; 74019; 74177; 80053; 83605; 83690; 85025; 86140; 87493; 94761; 96365; 96366; 96375; 99284; 99285; A9270; C9113; J1885; J2270; J2405; J3480; J7030; Q9967

== ENCOUNTER 2022-11-22 12:09 | Outpatient (CLI) | payer OTHER, SELFPAY | END 2022-11-22 12:10 | disposition home or self-care (01) | LOC: NFLDREF 11-23 07:42 | PROVIDERS: PCP Physician Assistant Medical; Referring Provider Physician Assistant Medical; Visit Provider Internal Medicine Nephrology | DX: N18.9 Chronic kidney disease, unspecified (principal); E87.6 Hypokalemia; E03.9 Hypothyroidism, unspecified | CPT/HCPCS: 80069; 82043; 82570; 86140 ==

== ENCOUNTER 2022-12-27 09:25 | Outpatient (CLI) | payer OTHER, SELFPAY | END 2022-12-27 09:26 | disposition home or self-care (01) | LOC: NFLDREF 12-28 21:41 | PROVIDERS: PCP Physician Assistant Medical; Referring Provider Physician Assistant Medical; Visit Provider Internal Medicine Nephrology | DX: N18.9 Chronic kidney disease, unspecified (principal); E87.6 Hypokalemia; E03.9 Hypothyroidism, unspecified | CPT/HCPCS: 80069; 82043; 82570 ==

== ENCOUNTER 2023-06-13 09:03 | Outpatient (CLI) | payer OTHER, SELFPAY | END 2023-06-13 09:04 | disposition home or self-care (01) | LOC: NFLDREF 06-14 07:59 | PROVIDERS: PCP Physician Assistant Medical; Referring Provider Physician Assistant Medical; Visit Provider Internal Medicine Nephrology | DX: E87.6 Hypokalemia (principal); N18.9 Chronic kidney disease, unspecified; E03.9 Hypothyroidism, unspecified | CPT/HCPCS: 80069; 82043; 82310; 82570; 82728; 83540; 83550; 83970; 84550; 86140 ==

== ENCOUNTER 2023-08-08 09:01 | Outpatient (CLI) | payer OTHER, SELFPAY ==
--- OUTSIDE RECORDS SUMMARY | 2023-08-08 09:08 | XMS_ITS | Encounter Summary ---
Author Name Unknown Organization [facility] Address [address] [place] [address] Care Team Providers Care Land Checker Name Role Phone Leidy Saucedo PA-C Primary Care Provider [phone] Encounter Details Date Type Department Care Team (Latest Contact Info) Description 05/16/2023 Travel Social History Tobacco Use Types Packs/Day Years Used Date Smoking Tobacco: Never Smokeless Tobacco: Never Alcohol Use Standard Drinks/Week Comments No 0 (1 standard drink = 0.6 oz pur e alcohol) 40 years ago Adolescent Education Answer Date Record ed Getting School Help Needed Not on file 12/25 Sex and Gender Information Value Date Recorded Sex Assigned at Not on file Gender Identity Not on file Sexual Orientation Not on file documented as of this encounter Plan of Treatment Not on file documented as of this encounter Visit Diagnoses Not on filedocumented in this encounter Care Teams Land Checker Relationship Specialty Start Date End Date Leidy Saucedo PA-C [address] [place] [address] PCP - General 02/01/21 documented as of this encounter
--- OUTSIDE RECORDS SUMMARY | 2023-08-08 09:08 | XMS_ITS | Encounter Summary ---
Author Name Unknown Organization [facility] Address [address] [place] [address] Care Team Providers Care Business And Services Instructor Name Role Phone Unavailable Primary Care Provider Unavailabl e Reason for Visit * Appointment Request (Routine) - Closed Specialty Diagnoses / Procedures Referred By Contaurora t Referred To Contact Nephrology and Hypertension Referral ID Status Reason Start Date Expiration Date Visits Re quested Visits Authorized [id number] Closed 05/18/2023 05/17/2024 1 1 Encounter Details Date Type Department Care Team (Latest Contact Info) Description 06/20/2023 8:00 AM CDT External Outreach Division of Nephrology and Hypertension in [place], [place] [address] [place] [address] João Hopper Jr., D.O. [address] [place] [address] Chronic Kidney Disease Stage 2 Glomerular Filtration Rate 60 To 89 (Primary Dx); Hypothyroidism Acquired Social History Tobacco Use Types Packs/Day Years Used Date Smoking Tobacco: Never Assessed Nutrition Answer Date Recorded Nutrition: EVOO Fat Source Unknown 11/10 Nutrition: Servings of Fruits/Vegetables per Day Not on file 11/10/2022 Dental Answer Date Recorded Dental: Regular Dentist Unknown 11/11/19 23 Sex and Gender Information Value Date Recorded Sex Assigned at Not on file Gender Identity Not on file Sexual Orientation Not on file documented as of this encounter Last Filed Vital Signs Vital Sign Reading Time Taken Comments Blood Pressure 120/70 06/20/2023 8:01 AM CDT Pulse 71 06/20/2023 8:01 AM CDT Temperature - - Respiratory Rate - - Oxygen Saturation - - Inhaled Oxygen Concentration - - Weight 68.9 kg (151 lb 14.4 oz) 06/20/2023 8:01 AM CDT Height 168.9 cm (5' 6.5) 06/20/2023 8:01 AM CDT Body Mass Index 24.15 06/20/2023 8:01 AM CDT documented in this encounter Progress Notes * João Hopper Jr., D.O. - 06/20/2023 8:00 AM CDT Referring Provider: No primary care provider on file. SUBJECTIVE REASON FOR VISIT T [facility] out reach CKD Clinic Ms. Mckeon is a 57 y.o. 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 Her serum creatinine had u nexpectedly risen from her normal value to 1.5 mg/dL, then up to 1.8 mg/dL. At our last visit, her serum creatinine was 1.5 mg/dL in December. She is felt well, she has some concerns regards her pancreas. She has had episodes of pancreatitis x2 and does have some cysts. These have been followed with MRI scans and there does not appear to beany evidence of malignancy. She is quite concerned however given her family history of pancreatic malignancy. Incidentally, during the above episodes with respect to her renal dysfunction her pancreatitis have been quiescent. Her blood pressures been excellent she has not been using any NSAIDs she has no change in urine character or quantity, no constitutional or cardiovascular complaints. Her serum creatinine has returned to normal, with a normal urinalysis and no microalbuminuria. I reassured her. No past medical history on file. Current Outpatient Medications: levothyroxine (SYNTHROID, LEVOTHROID) 50 mcg tablet, Take 1 tablet (50 mcg total) by mouth every morning before breakfast., Disp: 90 tablet, Rfl: 3 zafirlukast (ACCOLATE) 20 mg tablet, Take 1 tablet (20 mg total) by mouth 2 (two) times a day before breakfast and dinner., Disp: 180 tablet, Rfl: 3 REVIEW OF SYSTEMS All other systems reviewed and are negative. OBJECTIVE BP 120/70 Pulse 71 Ht 168.9 cm Wt 68.9 kg BMI 24.15 kg/m?? PHYSICAL EXAMINATION General: Awake alert oriented HEENT: DAPHNE, EOMI, Mucous membranes moist, no oral lesions Neck: No Masses, No Bruits Lungs: Clear to ascultation Heart: Regular Rate and Rhythm, No ectopy Murmurs or rubs Abdomen: Soft, Non-tender Extremities: No cyanosis, No clubbing: No edema Neuro: Cranial Nerves intact, Gait is normal, strength grossly normal Skin: no suspicious lesions identified Psychiatric: Normal affect DIAGNOSTICS Note creatinine 0.9 mg/dL normal CBC CRP less than 0.5, no microalbuminuria normal urinary sediment ASSESSMENT / PLAN #1 Chronic Kidney Disease Stage 2 Glomerular Filtration Rate 60 To 89 I suspect she has some degree of decreased renal functional reserve, and it is tempting to be concerned regards effective circulating volume as a precipitating cause for her previous acute kidney injury. The chronicity suggests however she does have some decreased functional reserve, and as per previous notes it is possible that she has a thin basement membrane, familial FSGS, or smoldering IgA lesion which is not clinically apparent. This would be unusual, given the lack of microalbuminuria however. I have not set up a return visit. Going forward: 1. Absolutely stay well hydrated with urine less dark than the color of lemonade 2. No NSAIDs or Gonzales 2 inhibitors 3. Annual to semi annual repeat of serum chemistry levels. 4. I will be available to visit with her should she develop another episode of acute kidney injury with her creatinine increasing above 1.5 mg/dL, or substantial changes in her urinary sediment. #2 Hypothyroidism Acquired Seems well replaced Total time: 30 minutes Counseling Time: 15 minutes João Hopper Jr., D.O. documented in this encounter Plan of Treatment Not on file documented as of this encounter Visit Diagnoses Diagnosis Chronic Kidney Disease Stage 2 Glomerular Filtration Rate 60 To 89- Primary Hypothyroidism Acquired documented in this encounter
--- OUTSIDE RECORDS SUMMARY | 2023-08-08 09:08 | XMS_ITS ---
Author Name Unknown Organization [facility] Address [address] [place] [address] Care Team Providers Care Kaiako Kohanga Reo Name Role Phone Unavailable Unavailable Unavailable Surgery Details Not on file Complications Check Surgery Details section. Procedure Estimated Blood Loss Check Surgery Details section. Procedure Findings Check Surgery Details section. Procedure Specimens Taken Check Surgery Details section.
--- OUTSIDE RECORDS SUMMARY | 2023-08-08 09:08 | XMS_ITS | Encounter Summary ---
Author Name Unknown Organization [facility] Address [address] [place] [id number] Care Team Providers Care Lift Manager Name Role Phone Leidy Saucedo PA-C Primary Care Provider [phone] Reason for Referral * Diagnostic Imaging MRI (Routine) - Closed Specialty Diagnoses / Procedures Referred By Contac t Referred To Contact Radiology. Diagnoses Pancreas cyst Procedures MR Abdomen MRCP w/o & w Contrast Jim Shaw MD [facility] [address] [place] [address] [place] [id number] [place] [id number] [email or web address] [place] [address] Referral ID Status Reason Start Date Expiration Date Visits Re quested Visits Authorized [id number] Closed 04/13/2023 04/12/2024 1 1 IQUE SEWER Reason for Visit * Diagnostic Imaging MRI (Routine) - Closed Specialty Diagnoses / Procedures Referred By Contac t Referred To Contact Radiology. Diagnoses Pancreas cyst Procedures MR Abdomen MRCP w/o & w Contrast Jim Shaw MD [facility] [address] [place] [address] [place] [id number] [id number] [place] [address] Referral ID Status Reason Start Date Expiration Date Visits Re quested Visits Authorized [id number] Closed 04/13/2023 04/12/2024 1 1 Encounter Details Date Type Department Care Team (Late st Contact Info) Description 05/16/2023 7:41 AM APPLIQUE SEWER - 05/16/2023 11:59 PM APPLIQUE SEWER Hospital Encounter [facility] [address] [place] [id number] Jim Shaw MD [facility] [address] [facility] [place] [id number] Pancreas cyst Discharge Disposition: Home or Self Care Social History Tobacco Use Types Packs/Day Years [...] on file documented as of this encounter Medications at Time of Discharge Medication Sig Dispensed Refills Start Date End Date acetaminophen (TYLENOL) 325 MG tablet Take 325-650 mg by mouth every 6 hours as needed. albuterol (PROAIR HFA/PROVENTIL HFA/VENTOLIN HFA) 108 (90 Base) MCG/ACT inhaler Inhale 1-2 puffs into the lungs every 4 hours as needed for shortness of breath / dyspnea or wheezing ALLERGY SHOTS q 4 weeks 03/29/2011 budesonide (PULMICORT FLEXHALER) 180 MCG/ACT inhaler Inhale 1 puff into the lungs 2 times daily. carboxymethylcellulose PF (REFRESH PLUS) 0.5 % ophthalmic solution Place 1 drop into both eyes 3 times daily as needed for dry eyes Preservative free Cholecalciferol (VITAMIN D3 PO) Take 2,500 Units by mouth daily. estradiol (ESTRACE) 0.1 MG/GM vaginal cream Place 1 g vaginally three times a week fluticasone (FLONASE) 50 MCG/ACT nasal spray 1-2 sprays by Both Nostrils route daily. 1 Package 11 03/29/2011 ibuprofen (ADVIL/MOTRIN) 600 MG tabletIndications:Postop erative state Take 1 tablet (600 mg) by mouth every 6 hours as needed for moderate pain (4-6) 30 tablet 03/05/2022 ketotifen (ZADITOR) 0.025 % ophthalmic solution Place 1 drop into both eyes every 12 hours EYE drops 03/29/2011 levothyroxine (SYNTHROID/LEVOTHROID) 50 MCG tablet Take 50 mcg by mouth daily lifitegrast (XIIDRA) 5 % opthalmic solution Place 1 drop into both eyes 2 times daily Preservative free loratadine (CLARITIN) 10 MG tablet Take 1 tablet by mouth daily. 30 tablet 1 03/29/2011 loteprednol (LOTEMAX) 0.5 % ophthalmic suspension 1 drop 4 times daily as needed vcbmtoiu-euscxnwnd-jhewh cortisone (CORTISPORIN) 3.5-46160-[address] 1 drop into both eyes 2 times daily as needed polyethylene glycol (MIRALAX) 17 GM/Dose powderIndications:Postop erative state Take 17 g by mouth daily 510 g 03/05/2022 polyethylene glycol (MIRALAX) powderIndications:Consti pation Take 17 g by mouth daily. 510 g 1 12/19/2011 promethazine (PHENERGAN) 25 MG tabletIndications:Postop erative state Take 1 tablet (25 mg) by mouth every 6 hours as needed for nausea or other (pain) 10 tablet 03/05/2022 pseudoePHEDrine (SUDAFED) 30 MG tablet Take 30 mg by mouth daily as needed for congestion SENNA-docusate sodium (SENNA S) 8.6-50 MG tabletIndications:Dosimetrist al intussusception of rectum (H) Take 1 tablet by mouth 2 times daily 30 tablet 03/05/2022 simethicone (MYLICON) 125 MG chewable tabletIndications:Postop erative state Take 1 tablet (125 mg) by mouth 2 times daily 14 tablet 03/05/2022 zafirlukast (ACCOLATE) 20 MG tablet Take 20 mg by mouth 2 times daily documented as of this encounter Plan of Treatment Not on file documented as of this encounter Procedures Procedure Name Priority Date/Time Associated Diagnosis Comments MR ABDOMEN MRCP W/O & W CONTRAST Routine 05/16/2023 8:47 AM APPLIQUE SEWER Pancreas cyst documented in this encounter Results * MR Abdomen MRCP w/o & w Contrast (05/16/2023 8:47 AM APPLIQUE SEWER) Anatomical Region Laterality Modality Abdomen/Pelvis, SUBRAD MR BODY, UMP MR BODY, RAD MR Magnetic Resonance Impressions 05/16/2023 9:39 AM APPLIQUE SEWER IMPRESSION: Stable cystic lesions throughout the pancreas measuring less than 1 cm. REFERENCE: Revisions of international consensus [place] guidelines for the management of IPMN of the pancreas. Pancreatology 17(5):738-753. HIGH-RISK STIGMATA: * Enhancing component bigger than 5 mm *Main duct dilated to 10 mm or more *Obstructive jaundice WORRISOME FEATURES: *Enhancing component smaller than 5 mm *Main duct dilated 5-9 mm *Lymphadenopathy *Abrupt change in caliber of the pancreatic duct * Cyst equal to or larger than 30 mm * Thickened and enhancing wall * Cyst growth of 5 mm or more in 2 years TREATMENT AND SURVEILLANCE GUIDELINES: All main duct IPMN or cysts with high-risk stigmata: surgical resection All cysts with worrisome features (including those at least 30 mm): EUS Cysts smaller than 30 mm: * Largest cyst less than 10 mm: CT or MRI/MRCP in 6 months and then every 2 years if no change * Largest cyst between 10-20 mm: CT or MRI/MRCP every 6 months for 1 year and then yearly for 2 years and then every 2 years if no change * Largest cyst between 20-30 mm: EUS in 3-6 months and then annual surveillance alternating between MRI and EUS as appropriate. SHAINA KATZ MD Narrative 05/16/2023 9:39 AM APPLIQUE SEWER MRI ABDOMEN WITH AND WITHOUT CONTRAST May 16, 2023 8:47 AM HISTORY: Pancreas cyst. COMPARISON: April 18, 2022. TECHNIQUE: Multiplanar, multisequence images of the abdomen acquired before and after administration of 7 mL Gadavist intravenous contrast. MRCP images and coronal 3-D thin section T2-weighted MRCP images through the biliary tree. 3D image reformatting was performed on the acquisition scanner. FINDINGS: 8 mm cystic lesion in the uncinate process of the pancreas posterior to the common bile duct noted. Cannot exclude a choledochal cyst given its proximity to the bile duct. No pancreatic ductal dilatation. Additional smaller diminutive cystic lesions within the pancreas. No biliary dilatation. No cholelithiasis. No choledocholithiasis. Extra hepatic bile duct is stable borderline enlarged at 7 mm. The liver, spleen, adrenal glands, kidneys, and pancreas demonstrate no worrisome focal lesion. Procedure Note Shaina Katz MD - 05/16/2023 MRI ABDOMEN WITH AND WITHOUT CONTRAST May 16, 2023 8:47 AM HISTORY: Pancreas cyst. COMPARISON: April 18, 2022. TECHNIQUE: Multiplanar, multisequence images of the abdomen acquired before and after administration of 7 mL Gadavist intravenous contrast. MRCP images and coronal 3-D thin section T2-weighted MRCP images through the biliary tree. 3D image reformatting was performed on the acquisition scanner. FINDINGS: 8 mm cystic lesion in the uncinate process of the pancreas posterior to the common bile duct noted. Cannot exclude a choledochal cyst given its proximity to the bile duct. No pancreatic ductal dilatation. Additional smaller diminutive cystic lesions within the pancreas. No biliary dilatation. No cholelithiasis. No choledocholithiasis. Extra hepatic bile duct is stable borderline enlarged at 7 mm. The liver, spleen, adrenal glands, kidneys, and pancreas demonstrate no worrisome focal lesion. IMPRESSION: Stable cystic lesions throughout the pancreas measuring less than 1 cm. REFERENCE: Revisions of international consensus [place] guidelines for the management of IPMN of the pancreas. Pancreatology 17(5):738-753. HIGH-RISK STIGMATA: * Enhancing component bigger than 5 mm *Main duct dilated to 10 mm or more *Obstructive jaundice WORRISOME FEATURES: *Enhancing component smaller than 5 mm *Main duct dilated 5-9 mm *Lymphadenopathy *Abrupt change in caliber of the pancreatic duct * Cyst equal to or larger than 30 mm * Thickened and enhancing wall * Cyst growth of 5 mm or more in 2 years TREATMENT AND SURVEILLANCE GUIDELINES: All main duct IPMN or cysts with high-risk stigmata: surgical resection All cysts with worrisome features (including those at least 30 mm): EUS Cysts smaller than 30 mm: * Largest cyst less than 10 mm: CT or MRI/MRCP in 6 months and then every 2 years if no change * Largest cyst between 10-20 mm: CT or MRI/MRCP every 6 months for 1 year and then yearly for 2 years and then every 2 years if no change * Largest cyst between 20-30 mm: EUS in 3-6 months and then annual surveillance alternating between MRI and EUS as appropriate. SHAINA KATZ MD Jim Shaw MD IMG MRI [facility] documented in this encounter Visit Diagnoses Diagnosis Pancreas cyst Cyst and pseudocyst of pancreas documented in this encounter Administered Medications Inactive Administered Medications - up to 3 most recent administrations Medication Order MAR Action Action Date Dose Rate Site gadobutrol (GADAVIST) injection 7 mL 7 mL, Intravenous, ONCE, On Mon05/16/23 at 0800, For 1 dose $Given 05/16/2023 7:57 AM APPLIQUE SEWER 7 mLs sodium chloride (PF) 0.9% PF flush 60 mL 60 mL, Intravenous, ONCE, On Mon05/16/23 at 0800, For 1 dose $Given 05/16/2023 7:57 AM APPLIQUE SEWER 100 mLs documented in this encounter Care Teams Lift Manager Relationship Specialty Start Date End Date Leidy Saucedo PA-C [place] [address] [place] [address] PCP - General 02/01/21 documented as of this encounter
--- OUTSIDE RECORDS SUMMARY | 2023-08-08 09:08 | XMS_ITS | Referral Summary ---
Author Name Unknown Organization [facility] Address [address] [place] [address] Care Team Providers Care Milk Route Supervisor Name Role Phone Leidy Saucedo PA-C Primary Care Provider [phone] Encounters Date Type Department Care Team Description 05/16/2023 Travel 05/16/2023 7:41 AM COLOR MAKER FORMULATOR - 05/16/2023 11:59 PM [facility] Hospital Encounter [facility] [address] [facility] [address] [place] [address] Jim Shaw MD Pancreas cyst Discharge Disposition: Home or Self Care from Last 3 Months Allergies Active Allergy Reactions Criticality Noted Date Comments Gluten Meal 02/25/2022 Pollen Extract/Tree Extract Cough 10/26/19 12 Sneezing, Medications Medication Sig Dispensed Refills Start Date End Date Status ALLERGY SHOTS q 4 weeks 03/29/2011 Active fluticasone (FLONASE) 50 MCG/ACT nasal spray 1-2 sprays by Both Nostrils route daily. 1 Package 11 03/29/2011 Active ketotifen (ZADITOR) 0.025 % ophthalmic solution Place 1 drop into both eyes every 12 hours EYE drops 03/29/2011 Active loratadine (CLARITIN) 10 MG tablet Take 1 tablet by mouth daily. 30 tablet 1 03/29/2011 Active Cholecalciferol (VITAMIN D3 PO) Take 2,500 Units by mouth daily. Active kubmlkqy-yhhakypul-ia drocortisone (CORTISPORIN) 3.5-95895-[address] 1 drop into both eyes 2 times daily as needed Active acetaminophen (TYLENOL) 325 MG tablet Take 325-650 mg by mouth every 6 hours as needed. Active budesonide (PULMICORT FLEXHALER) 180 MCG/ACT inhaler Inhale 1 puff into the lungs 2 times daily. Active polyethylene glycol (MIRALAX) powderIndications:Con stipation Take 17 g by mouth daily. 510 g 1 12/19/2011 Active albuterol (PROAIR HFA/PROVENTIL HFA/VENTOLIN HFA) 108 (90 Base) MCG/ACT inhaler Inhale 1-2 puffs into the lungs every 4 hours as needed for shortness of breath / dyspnea or wheezing Active levothyroxine (SYNTHROID/LEVOTHROID ) 50 MCG tablet Take 50 mcg by mouth daily Active lifitegrast (XIIDRA) 5 % opthalmic solution Place 1 drop into both eyes 2 times daily Preservative free Active carboxymethylcellulos e PF (REFRESH PLUS) 0.5 % ophthalmic solution Place 1 drop into both eyes 3 times daily as needed for dry eyes Preservative free Active zafirlukast (ACCOLATE) 20 MG tablet Take 20 mg by mouth 2 times daily Active pseudoePHEDrine (SUDAFED) 30 MG tablet Take 30 mg by mouth daily as needed for congestion Active estradiol (ESTRACE) 0.1 MG/GM vaginal cream Place 1 g vaginally three times a week Active loteprednol (LOTEMAX) 0.5 % ophthalmic suspension 1 drop 4 times daily as needed Active ibuprofen (ADVIL/MOTRIN) 600 MG tabletIndications:Pos toperative state Take 1 tablet (600 mg) by mouth every 6 hours as needed for moderate pain (4-6) 30 tablet 03/05/2022 Active polyethylene glycol (MIRALAX) 17 GM/Dose powderIndications:Pos toperative state Take 17 g by mouth daily 510 g 03/05/2022 Active promethazine (PHENERGAN) 25 MG tabletIndications:Pos toperative state Take 1 tablet (25 mg) by mouth every 6 hours as needed for nausea or other (pain) 10 tablet 03/05/2022 Active simethicone (MYLICON) 125 MG chewable tabletIndications:Pos toperative state Take 1 tablet (125 mg) by mouth 2 times daily 14 tablet 03/05/2022 Active SENNA-docusate sodium (SENNA S) 8.6-50 MG tabletIndications:Int ernal intussusception of rectum (H) Take 1 tablet by mouth 2 times daily 30 tablet 03/05/2022 Active Active Problems Problem Noted Date Diagnosed Date Internal intussusception of rectum 03/05/2022 Pneumonia due to 2019 novel coronavirus 02/02/20 21 Acute respiratory failure with hypoxia Urinary incontinence 04/02/2011 Immunizations Name Administration Dates Next Due Influenza (IIV3) PF 01/01/2011 Influenza vaccine ages 6-35 months 01/01,12/26/2019,12/25/2018,12/26/19 18,12/13/2016 Social History Tobacco Use Types Packs/Day Years Used Date Smoking Tobacco: Never Smokeless Tobacco: Never Tobacco Cessation:Counseling Given: Not Answered Alcohol Use Standard Drinks/Week Comments No 0 (1 standard drink = 0.6 oz pur e alcohol) 40 years ago Adolescent Education Answer Date Record ed Getting School Help Needed Not on file 12/25 Sex and Gender Information Value Date Recorded Sex Assigned at Not on file Gender Identity Not on file Sexual Orientation Not on file Last Filed Vital Signs Vital Sign Reading Time Taken Comments Blood Pressure 103/63 03/05/2022 6:23 PM COLOR MAKER FORMULATOR Pulse 78 03/05/2022 6:23 PM COLOR MAKER FORMULATOR Temperature 37 ??C (98.6 ??F) 03/05/2022 6:23 PM COLOR MAKER FORMULATOR Respiratory Rate 16 03/05/2022 6:23 PM COLOR MAKER FORMULATOR Oxygen Saturation 96% 03/05/2022 6:23 PM COLOR MAKER FORMULATOR Inhaled Oxygen Concentration - - Weight 67.1 kg (148 lb) 03/04/2022 11:49 AM COLOR MAKER FORMULATOR Height 167.6 cm (5' 6) 03/04/2022 11:49 AM COLOR MAKER FORMULATOR Body Mass Index 23.89 03/04/2022 11:49 AM COLOR MAKER FORMULATOR Plan of Treatment Not on file Medical Devices Implanted Type Area Basket Filler Device Identifier Shelf Expiration Date Model / Serial / Lot Mesh Sling Obtryx-Halo Implanted:Qty: 1 on 11/01/2011 by Teodoro Guajardo MD at [facility] N/A: Vagina [employer] 01/16/2014 [id number] / / [id number] Mesh Sling, Polyform Synthetic, 15cm X 20cm Implanted:Qty: 1 on 03/04/2022 by Judy Lucero MD at [facility] N/A: Pelvis [employer] 07/17/2022 [id number] / / [id number] Description:Mesh used for co lpopexy and rectopexy (mesh into two parts) Procedures Procedure Name Priority Date/Time Associated Diagnosis Comments MR ABDOMEN MRCP W/O & W CONTRAST Routine 05/16/2023 8:47 AM COLOR MAKER FORMULATOR Pancreas cyst GLUCOSE (EXTERNAL RESULT) Routine 02/22/2022 8:53 AM COLOR MAKER FORMULATOR MA SCREENING DIGITAL BILATERAL Routine 01/12/2012 1:54 PM CDT PAP IMAGED THIN LAYER SCREEN Routine 01/01/2011 Screening for malignant neoplasm of the cervix from Last 3 Months or Most Recently Relevant to Health Maintenance Results * MR Abdomen MRCP w/o & w Contrast (05/16/2023 8:47 AM COLOR MAKER FORMULATOR) Anatomical Region Laterality Modality Abdomen/Pelvis, SUBRAD MR BODY, UMP MR BODY, RAD MR Magnetic Resonance Impressions 05/16/2023 9:39 AM COLOR MAKER FORMULATOR IMPRESSION: Stable cystic lesions throughout the pancreas [...] and EUS as appropriate. SHAINA KATZ MD [facility] 05/16/2023 9:39 AM COLOR MAKER FORMULATOR MRI ABDOMEN WITH AND WITHOUT CONTRAST May [...] KATZ MD Jim Shaw MD IMG MRI [facility] * Glucose (External Result) (02/22/2022 8:53 AM COLOR MAKER FORMULATOR) Glucose (External) 83 60 - 115 mg/dL EXTERNAL LAB Blood 02/22/2022 8:53 AM COLOR MAKER FORMULATOR Narrative EXTERNAL LAB - 02/22/2022 8:53 AM COLOR MAKER FORMULATOR [facility] RESULT [facility] [address], [place] [address] Provider Outside LAB - HIM EXTERNAL R ESULT EXTERNAL LAB External Lab * Mammo Screening digital (bilat) (01/12/2012 1:54 PM CDT) Anatomical Region Laterality Modality Breast Bilateral Other 01/12/2012 1:54 PM CDT Impressions 01/12/2012 4:04 PM CDT SCREENING MAMMOGRAM, BILATERAL, DIGITAL w/CAD - 01/12/2012 1:54 PM BREAST SYMPTOMS: No current breast complaints. COMPARISON: ??01/03/2011, 12/28/2009, 12/25/2008 PARENCHYMAL PATTERN: Scattered fibroglandular densities. COMMENTS: No findings of suspicion for malignancy. IMPRESSION: BIRADS 1, NEGATIVE. RECOMMENDATION: Recommend annual screening mammography. Exam results letter mailed to patient. I have personally reviewed the image and initial interpretation and agree with the findings. June Fitzloff IMG MAMMOGRAPHY [facility] * PAP imaged thin layer, screen (01/01/2011) PAP Date 01/01/11 MISYS PAP MISYS Cytologic material (specimen) Teodoro Guajardo MD LAB - [facility] SPECIMEN MISYS from Last 3 Months or Most Recently Relevant to Health Maintenance Advance Directives For more information, please contact: [phone] * Full Code (Latest Code Status on File) Date Activated Date Inactivated Comments 03/05/2022 12:12 AM 03/05/2022 8:31 PM All basic and advanced life-sustaining interventions are performed as appropriate Question Answer Comments Code status determined by: Discussion with taurus nt/ legal decision maker * Full Code Date Activated Date Inactivated Comments 02/01/2021 5:06 PM 02/10/2021 1:12 PM All basic and advanced life-sustaining interventions are performed as appropriate Question Answer Comments Code status determined by: Discussion with taurus nt/ legal decision maker * Full Code Date Activated Date Inactivated Comments 11/01/2011 8:29 AM 02/01/2021 8:42 AM Care Teams Milk Route Supervisor Relationship Specialty Start Date End Date Leidy Saucedo PA-C [place] [address] [place] [address] PCP - General 02/01/21
--- OUTSIDE RECORDS SUMMARY | 2023-08-08 09:08 | XMS_ITS | Clinical Summary ---
Author Name Unknown Organization [facility] Address [address] [place] [address] Care Team Providers Care Bird Sitter Name Role Phone Leidy Saucedo PA-C Primary Care Provider [phone] Allergies Active Allergy Reactions Criticality Noted Date [...] Take 2,500 Units by mouth daily. Active amhxddma-vsbgljayd-jg drocortisone (CORTISPORIN) 3.5-67449-[address] 1 drop into both [...] respiratory failure with hypoxia Urinary incontinence 04/02/2011 Encounters Date Type Department Care Team Description 05/16/2023 7:41 AM SAP DATA ANALYST - 05/16/2023 11:59 PM SAP DATA ANALYST Hospital Encounter [facility] [address] [facility] [address] [place] [address] Jim Shaw MD Pancreas cyst Discharge Disposition: Home or Self Care 05/16/2023 Travel from Last 3 Months Immunizations Name Administration Dates Next Due Influenza (IIV3) PF 01/01/2011 Influenza vaccine ages 6-35 months 01/01,12/26/2019,12/25/2018,12/26/19 18,12/13/2016 Family History Medical History Relation Comments Diabetes Father type 1 Diabetes Paternal Grandfather Diabetes Sister 1 Relation Status Comments Daughter Alive Father Alive Maternal Grandfather Maternal Grandmother Alive Mother Alive Paternal Grandfather Paternal Grandmother Sister 1 Alive Sister 2 Alive Son Alive Social History Tobacco Use Types Packs/Day Years [...] Comments Blood Pressure 103/63 03/05/2022 6:23 PM SAP DATA ANALYST Pulse 78 03/05/2022 6:23 PM SAP DATA ANALYST Temperature 37 ??C (98.6 ??F) 03/05/2022 6:23 PM SAP DATA ANALYST Respiratory Rate 16 03/05/2022 6:23 PM SAP DATA ANALYST Oxygen Saturation 96% 03/05/2022 6:23 PM SAP DATA ANALYST Inhaled Oxygen Concentration - - Weight 67.1 kg (148 lb) 03/04/2022 11:49 AM SAP DATA ANALYST Height 167.6 cm (5' 6) 03/04/2022 11:49 AM SAP DATA ANALYST Body Mass Index 23.89 03/04/2022 11:49 AM SAP DATA ANALYST Plan of Treatment Health Maintenance Due Date Last Done Comments ADVANCE CARE PLANNING 1965 ANNUAL REVIEW OF HM ORDERS 1965 CT COLONOGRAPHY 1965 FIT 1965 FLEX SIG 1965 TSH W/FREE T4 REFLEX 1965 COLONOSCOPY 10/08/1975 HIV SCREENING 1980 HEPATITIS C SCREENING 10/08/1983 HEPATITIS B IMMUNIZATION (1 of 3 - 19+ 3-dose series) 1984 10/17/1989, 05/17/1989, 04/19/1989 LIPID 2005 YEARLY PREVENTIVE VISIT 10/25/2007 10/25/19 07, 11/26/2001, 08/16/2000, Additional history exists PAP 01/01/2014 01/01/2011, 10/24/2006 MAMMO SCREENING 01/11/2014 01/12/2012, 12/18, 12/28/2009, Additional history exists COLORECTAL CANCER SCREENING 03/16/2023 sDNA (Cologuard) 03/16/2023 03/16/2020 PHQ-2 (once per calendar year) 2023 GLUCOSE 02/22/2025 02/22/2022, 112 05/2020, 02/07/2021, Additional history exists DTAP/TDAP/TD IMMUNIZATION (4 - Td or Tdap) 04/05/2027 04/05/2017, 11/12/2007, 08/16/2000, Additional history exists ZOSTER IMMUNIZATION Completed 11/01/2018, 9 COVID-19 Vaccine Completed 12/22/2022, , 05/28/2021, Additional history exists INFLUENZA VACCINE Completed 12/29/2022, , 01/01/2021, Additional history exists HPV IMMUNIZATION Aged Out No longer e ligible based on patient's age to complete this topic IPV IMMUNIZATION Aged Out No longer e ligible based on patient's age to complete this topic MENINGITIS IMMUNIZATION Aged Out No l onger eligible based on patient's age to complete this topic Pneumococcal Vaccine: Pediatrics (0 to 5 Years) and At-Risk Patients (6 to 64 Years) Aged Out No longer eligible based on patient's age to complete this topic RSV MONOCLONAL ANTIBODY Aged Out No l onger eligible based on patient's age to complete this topic Medical Devices Implanted Type Area Health Officer Device Identifier Shelf Expiration Date Model / Serial / Lot Mesh Sling Obtryx-Halo Implanted:Qty: 1 on 11/01/2011 by Teodoro Guajardo MD at [facility] N/A: Vagina [employer] 01/16/2014 [id number] / / [id number] Mesh Sling, Polyform Synthetic, 15cm X 20cm Implanted:Qty: 1 on 03/04/2022 by Judy Lucero MD at [facility] N/A: Pelvis [employer] 07/17/2022 [id number] / / [id number] Description:Mesh used for co lpopexy and rectopexy (mesh into two parts) Procedures Procedure Name Priority Date/Time Associated Diagnosis Comments MR ABDOMEN MRCP W/O & W CONTRAST Routine 05/16/2023 8:47 AM SAP DATA ANALYST Pancreas cyst GLUCOSE (EXTERNAL RESULT) Routine 02/22/2022 8:53 AM SAP DATA ANALYST MA SCREENING DIGITAL BILATERAL Routine 01/12/2012 1:54 PM CDT PAP IMAGED THIN LAYER SCREEN Routine 01/01/2011 Screening for malignant neoplasm of the cervix from Last 3 Months or Most Recently Relevant to Health Maintenance Results * MR Abdomen MRCP w/o & w Contrast (05/16/2023 8:47 AM SAP DATA ANALYST) Anatomical Region Laterality Modality Abdomen/Pelvis, SUBRAD MR BODY, UMP MR BODY, RAD MR Magnetic Resonance Impressions 05/16/2023 9:39 AM SAP DATA ANALYST IMPRESSION: Stable cystic lesions throughout the pancreas [...] SHAINA KATZ MD Narrative 05/16/2023 9:39 AM SAP DATA ANALYST MRI ABDOMEN WITH AND WITHOUT CONTRAST May [...] Jim Shaw MD IMG MRI [facility] * Glucose (External Result) (02/22/2022 8:53 AM SAP DATA ANALYST) Glucose (External) 83 60 - 115 mg/dL EXTERNAL LAB Blood 02/22/2022 8:53 AM SAP DATA ANALYST Narrative EXTERNAL LAB - 02/22/2022 8:53 AM SAP DATA ANALYST [facility] RESULT [facility] [address], [place] [address] Provider Outside LAB - HIM EXTERNAL R [...] interpretation and agree with the findings. June Fitzl IMG MAMMOGRAPHY ORDE ROSA * PAP imaged thin layer, screen (01/01/2011) PAP Date 01/01/11 MISYS PAP MISYS Cytologic material (specimen) Tedooro Guajardo MD LAB - [facility] SPECIMEN MISYS from Last 3 Months or Most Recently Relevant to Health Maintenance Advance Directives For more information, please contact: [phone] * Full Code (Latest Code Status on File) Date Activated Date Inactivated Comments 03/05/2022 12:12 AM 03/05/2022 8:31 PM All basic and advanced life-sustaining interventions are performed as appropriate Question Answer Comments Code status determined by: Discussion with patie nt/ legal decision maker * Full Code Date Activated Date Inactivated Comments 02/01/2021 5:06 PM 02/10/2021 1:12 PM All basic and advanced life-sustaining interventions are performed as appropriate Question Answer Comments Code status determined by: Discussion with patie nt/ legal decision maker * Full Code Date Activated Date Inactivated Comments 11/01/2011 8:29 AM 02/01/2021 8:42 AM Care Teams Bird Sitter Relationship Specialty Start Date End Date Leidy Suacedo PA-C [place] [address] [place] [address] PCP - General 02/01/21
--- OUTSIDE RECORDS SUMMARY | 2023-08-08 09:08 | XMS_ITS | Clinical Summary ---
Author Name Unknown Organization [facility] Address [address] [place] [address] Care Team Providers Care Director Data Name Role Phone Unavailable Primary Care Provider Unavailabl e Source Comments Patient records contain information from all sites at [facility]. For routine questions regarding patient records, call [phone] during business hours, M-F 8:00 AM - 5:00 PM Central Time. Record requests for emergency care only can be directed to [phone] at any time.[facility] Medications Medication Sig Dispensed Refills Start Date End Date Status levothyroxine (SYNTHROID, LEVOTHROID) 50 mcg tablet Take 1 tablet (50 mcg total) by mouth every morning before breakfast. 90 tablet 3 11/22/2022 11/22/2023 Active zafirlukast (ACCOLATE) 20 mg tablet Take 1 tablet (20 mg total) by mouth 2 (two) times a day before breakfast and dinner. 180 tablet 3 11/22/2022 11/22/2023 Active Active Problems Problem Noted Date Diagnosed Date Chronic Kidney Disease Stage 2 Glomerular Filtration Rate 60 To 89 11/22/2022 Hypothyroidism Acquired 11/22/2022 Celiac Disease 11/22/2022 Encounters Date Type Department Care Team Description 06/20/2023 8:00 AM CDT External Outreach Division of Nephrology and Hypertension in [place], [place] [address] [place] [address] João Hopper Jr., D.O. Chronic Kidney Disease Stage 2 Glomerular Filtration Rate 60 To 89 (Primary Dx); Hypothyroidism Acquired from Last 3 Months Social History Tobacco Use Types Packs/Day Years [...] Mass Index 24.15 06/20/2023 8:01 AM CDT Plan of Treatment Health Maintenance Due Date Last Done Comments CT Colonography 1965 Colonoscopy 1965 FIT 1965 HIV Screening 1965 Hepatitis C Screening 1965 Lipid (Cholesterol) Screening 1965 Mammogram 1965 Thyroid Stimulating Hormone (TSH) test for thyroid function 1965 Hepatitis B Vaccines (1 of 3 - 19+ 3-dose series) 1984 10/17/1989, 05/17/1989, 04/19/1989 Cervical Cancer Screening 04/05/2020 04/05/2017, 09/2006 Cologuard 03/19/2023 03/19/2020 Colorectal Cancer Screening 03/19/2023 Depression Screening (Annual PHQ-2) 03/20/2023 Fasting Glucose for Diabetes Screening 02/10/2024 02/09/2021, 02/07/2021, 02/05/2021, Additional history exists DTaP,Tdap,and Td Vaccines (3 - Td or Tdap) 04/05/2027 04/05/2017, 11/12/2007, 08/16/2000, Additional history exists Zoster Vaccines Completed 11/01/2018, 07/31/2018 COVID-19 Vaccine Completed 12/22/2022, , 05/28/2021, Additional history exists Influenza Vaccine Completed 12/29/2022, , 12/26/2019, Additional history exists Pneumococcal vaccine (0-64 years) Aged Out No longer eligible based on patient's age to complete this topic Procedures Procedure Name Priority Date/Time Associated Diagnosis Comments EXTI BASIC METABOLIC PANEL, FASTING, S Routine 02/09/2021 7:17 AM MEDICAL AUDITOR from Last 3 Months or Most Recently Relevant to Health Maintenance
--- OUTSIDE RECORDS SUMMARY | 2023-08-08 09:08 | XMS_ITS | Encounter Summary ---
Author Name Unknown Organization [facility] Address [address] [place] [address] Care Team Providers Care Inspector Exhaust Emissions Name Role Phone Leidy Saucedo PA-C Primary Care Provider [phone] Encounter Details Date Type Department Care Team (Late st Contact Info) Description 12/27/2021 Orders Only [facility] Centralized Scheduling [address] [place] [id number] Toño Johns MD [address] [place] [address] Encounter for laboratory testing for COVID-19 virus Social History Tobacco Use Types Packs/Day Years Used Date Smoking Tobacco: Never Smokeless Tobacco: Never Alcohol Use Standard Drinks/Week Comments No 0 (1 standard drink = 0.6 oz pur e alcohol) Sex and Gender Information Value Date Recorded Sex Assigned at Not on file Gender Identity Not on file Sexual Orientation Not on file documented as of this encounter Plan of Treatment Not on file documented as of this encounter Visit Diagnoses Diagnosis Encounter for laboratory testing for COVID-19 virus documented in this encounter Care Teams Inspector Exhaust Emissions Relationship Specialty Start Date End Date Lediy Saucedo PA-C [facility] [address] [place] [address] [place] [address] PCP - General 02/01/21 documented as of this encounter
--- OUTSIDE RECORDS SUMMARY | 2023-08-08 09:08 | XMS_ITS | Referral Summary ---
Author Name Unknown Organization [facility] Address [address] [place] [address] Care Team Providers Care Plastic Design Applier Name Role Phone Unavailable Primary Care Provider Unavailabl e Source Comments Patient records contain information from all sites at [facility]. For routine questions regarding patient records, call [phone] during business hours, M-F 8:00 AM - 5:00 PM Central Time. Record requests for emergency care only can be directed to [phone] at any time.[facility] Encounters Date Type Department Care Team Description 06/20/2023 8:00 AM CDT External Outreach Division of Nephrology and Hypertension in [place], [place] [address] [place] [address] João Hopper Jr., D.O. Chronic Kidney Disease Stage 2 Glomerular Filtration Rate 60 To 89 (Primary Dx); Hypothyroidism Acquired from Last 3 Months Medications Medication Sig Dispensed Refills Start Date [...] 11/22/2022 Hypothyroidism Acquired 11/22/2022 Celiac Disease 11/22/2022 Social History Tobacco Use Types Packs/Day Years [...] 06/20/2023 8:01 AM CDT Plan of Treatment Not on file Procedures Procedure Name Priority Date/Time Associated Diagnosis Comments EXTI BASIC METABOLIC PANEL, FASTING, S Routine 02/09/2021 7:17 AM ART OBJECTS SUPERVISOR from Last 3 Months or Most Recently Relevant to Health Maintenance
--- OUTSIDE RECORDS SUMMARY | 2023-08-08 09:09 | XMS_ITS | Encounter Summary ---
Author Name Unknown Organization [facility] Address [address] [place] [address] Care Team Providers Care Aerospace Quality Engineer Name Role Phone Fauzia Quinn MD Primary Care Provider [phone] Encounter Details Date Type Department Care Team (Latest Contact Info) Description 10/21/1993 Notes/Orders Scott Sierra MD [address] [place] [place] [address] Social History Tobacco Use Types Packs/Day Years Used Date Smoking Tobacco: Never Assessed Sex and Gender Information Value Date Recorded Sex Assigned at Not on file Gender Identity Not on file Sexual Orientation Not on file documented as of this encounter Plan of Treatment Not on file documented as of this encounter Visit Diagnoses Not on filedocumented in this encounter Care Teams Aerospace Quality Engineer Relationship Specialty [place] [address] [place] [address] PCP - General 10/19/06 documented as of this encounter
--- OUTSIDE RECORDS SUMMARY | 2023-08-08 09:09 | XMS_ITS | Encounter Summary ---
Author Name Unknown Organization [facility] Address [address] [place] [address] Care Team Providers Care Binding Stitcher Name Role Phone Fauzia Quinn MD Primary Care Provider [phone] Encounter Details Date Type Department Care Team (Latest Contact Info) Description 03/09/1995 Notes/Orders Scott Sierra MD [address] [place] [address] Social History Tobacco Use Types Packs/Day Years Used Date Smoking Tobacco: Never Assessed Sex and Gender Information Value Date Recorded Sex Assigned at Not on file Gender Identity Not on file Sexual Orientation Not on file documented as of this encounter Plan of Treatment Not on file documented as of this encounter Visit Diagnoses Not on filedocumented in this encounter Care Teams Binding Stitcher Relationship Specialty [place] [address] [place] [address] PCP - General 10/19/06 documented as of this encounter
--- OUTSIDE RECORDS SUMMARY | 2023-08-08 09:09 | XMS_ITS | Encounter Summary ---
Author Name Unknown Organization [facility] Address [address] [place] [address] Care Team Providers Care Maid Housekeeper Name Role Phone Fauzia Quinn MD Primary Care Provider [phone] Encounter Details Date Type Department Care Team (Late st Contact Info) Description 09/06/2002 [facility] [address] [place] [address] Nilesh Nino MD [address] [place], [place] [address] OPEN WOUND VAGINA Social History Tobacco Use Types Packs/Day Years Used Date Smoking Tobacco: Never Alcohol Use Standard Drinks/Week Comments No 0 (1 standard drink = 0.6 oz pur e alcohol) Sex and Gender Information Value Date Recorded Sex Assigned at Not on file Gender Identity Not on file Sexual Orientation Not on file documented as of this encounter Plan of Treatment Not on file documented as of this encounter Visit Diagnoses Diagnosis Open wound of vagina, without mention of complication documented in this encounter Care Teams Maid Housekeeper Relationship Specialty [place] [address] [place], [place] [id number] PCP - General 10/19/06 documented as of this encounter
--- OUTSIDE RECORDS SUMMARY | 2023-08-08 09:09 | XMS_ITS | Encounter Summary ---
Author Name Unknown Organization [facility] Address [address] [place] [address] Care Team Providers Care Glass Beveller Name Role Phone Fauzia Quinn MD Primary Care Provider Encounter Details Date Type Department Care Team (Latest Contact Info) Description 08/18/1996 Notes/Orders Social History Tobacco Use Types Packs/Day Years Used Date Smoking Tobacco: Never Assessed Sex and Gender Information Value Date Recorded Sex Assigned at Not on file Gender Identity Not on file Sexual Orientation Not on file documented as of this encounter Plan of Treatment Not on file documented as of this encounter Visit Diagnoses Not on filedocumented in this encounter Care Teams Glass Beveller Relationship Specialty [place] [address] [place] [address] PCP - General 10/19/06 documented as of this encounter
--- OUTSIDE RECORDS SUMMARY | 2023-08-08 09:09 | XMS_ITS | Encounter Summary ---
Author Name Unknown Organization [facility] Address [address] [place] [address] Care Team Providers Care Piano Regulator Inspector Name Role Phone Fauzia Quinn MD Primary Care Provider [phone] Encounter Details Date Type Department Care Team (Latest Contact Info) Description 05/22/1995 Notes/Orders Scott Sierra MD [address] [place] [address] Social History Tobacco Use Types Packs/Day Years Used Date Smoking Tobacco: Never Assessed Sex and Gender Information Value Date Recorded Sex Assigned at Not on file Gender Identity Not on file Sexual Orientation Not on file documented as of this encounter Plan of Treatment Not on file documented as of this encounter Visit Diagnoses Not on filedocumented in this encounter Care Teams Piano Regulator Inspector Relationship Specialty [place] [address] [place] [address] PCP - General 10/19/06 documented as of this encounter
--- OUTSIDE RECORDS SUMMARY | 2023-08-08 09:09 | XMS_ITS | Encounter Summary ---
Author Name Unknown Organization [facility] Address [address] [place] [address] Care Team Providers Care Applications Support Analyst Name Role Phone Fauzia Quinn MD Primary Care Provider [phone] Encounter Details Date Type Department Care Team (Latest Contact Info) Description 12/13/1994 Notes/Orders Scott Sierra MD [address] [place] [address] Social History Tobacco Use Types Packs/Day Years Used Date Smoking Tobacco: Never Assessed Sex and Gender Information Value Date Recorded Sex Assigned at Not on file Gender Identity Not on file Sexual Orientation Not on file documented as of this encounter Plan of Treatment Not on file documented as of this encounter Visit Diagnoses Not on filedocumented in this encounter Care Teams Applications Support Analyst Relationship Specialty [place] [address] [place] [address] PCP - General 10/19/06 documented as of this encounter
--- OUTSIDE RECORDS SUMMARY | 2023-08-08 09:09 | XMS_ITS | Encounter Summary ---
Author Name Unknown Organization [facility] Address [address] [place] [address] Care Team Providers Care Senior Communications Engineer Name Role Phone Fauzia Quinn MD Primary Care Provider [phone] Encounter Details Date Type Department Care Team (Latest Contact Info) Description 03/21/1995 Notes/Orders Social History Tobacco Use Types Packs/Day Years Used Date Smoking Tobacco: Never Assessed Sex and Gender Information Value Date Recorded Sex Assigned at Not on file Gender Identity Not on file Sexual Orientation Not on file documented as of this encounter Plan of Treatment Not on file documented as of this encounter Visit Diagnoses Not on filedocumented in this encounter Care Teams Senior Communications Engineer Relationship Specialty [place] [address] [place] [address] PCP - General 10/19/06 documented as of this encounter
--- OUTSIDE RECORDS SUMMARY | 2023-08-08 09:09 | XMS_ITS | Encounter Summary ---
Author Name Unknown Organization [facility] Address [address] [place] [address] Care Team Providers Care Basketball Assembler Name Role Phone Fauzia Quinn MD Primary Care Provider [phone] Encounter Details Date Type Department Care Team (Late st Contact Info) Description 09/07/1996 Notes/Orders [facility] [address] [place] [address] Med Rosenthal MD [address] [place] [address] Social History Tobacco Use Types Packs/Day Years Used Date Smoking Tobacco: Never Assessed Sex and Gender Information Value Date Recorded Sex Assigned at Not on file Gender Identity Not on file Sexual Orientation Not on file documented as of this encounter Plan of Treatment Not on file documented as of this encounter Visit Diagnoses Not on filedocumented in this encounter Care Teams Basketball Assembler Relationship Specialty [place] [address] [place] [address] PCP - General 10/19/06 documented as of this encounter
--- OUTSIDE RECORDS SUMMARY | 2023-08-08 09:09 | XMS_ITS | Encounter Summary ---
Author Name Unknown Organization [facility] Address [address] [place] [address] Care Team Providers Care Trailer Technician Name Role Phone Fauzia Quinn MD Primary Care Provider [phone] Encounter Details Date Type Department Care Team (Late st Contact Info) Description 09/06/1995 Notes/Orders [facility] [address] [place] [address] Med Rosenthal MD [address] [place] [address] Social History Tobacco Use Types Packs/Day Years Used Date Smoking Tobacco: Never Assessed Sex and Gender Information Value Date Recorded Sex Assigned at Not on file Gender Identity Not on file Sexual Orientation Not on file documented as of this encounter Plan of Treatment Not on file documented as of this encounter Visit Diagnoses Not on filedocumented in this encounter Care Teams Trailer Technician Relationship Specialty [place] [address] [place] [address] PCP - General 10/19/06 documented as of this encounter
--- OUTSIDE RECORDS SUMMARY | 2023-08-08 09:09 | XMS_ITS | Encounter Summary ---
Author Name Unknown Organization [facility] Address [address] [place] [address] Care Team Providers Care Aircraft Captain Name Role Phone Fauzia Quinn MD Primary Care Provider [phone] Encounter Details Date Type Department Care Team (Latest Contact Info) Description 11/16/1995 Notes/Orders Social History Tobacco Use Types Packs/Day Years Used Date Smoking Tobacco: Never Assessed Sex and Gender Information Value Date Recorded Sex Assigned at Not on file Gender Identity Not on file Sexual Orientation Not on file documented as of this encounter Plan of Treatment Not on file documented as of this encounter Visit Diagnoses Not on filedocumented in this encounter Care Teams Aircraft Captain Relationship Specialty [place] [address] [place] [address] PCP - General 10/19/06 documented as of this encounter
--- OUTSIDE RECORDS SUMMARY | 2023-08-08 09:09 | XMS_ITS | Encounter Summary ---
Author Name Unknown Organization [facility] Address [address] [place] [address] Care Team Providers Care Educational Director Name Role Phone Fauzia Quinn MD Primary Care Provider [phone] Encounter Details Date Type Department Care Team (Late st Contact Info) Description 02/02/1994 Notes/Orders [facility] [address] [place] [address] Med Rosenthal MD [address] [place] [address] Social History Tobacco Use Types Packs/Day Years Used Date Smoking Tobacco: Never Assessed Sex and Gender Information Value Date Recorded Sex Assigned at Not on file Gender Identity Not on file Sexual Orientation Not on file documented as of this encounter Plan of Treatment Not on file documented as of this encounter Visit Diagnoses Not on filedocumented in this encounter Care Teams Educational Director Relationship Specialty [place] [address] [place] [address] PCP - General 10/19/06 documented as of this encounter
--- OUTSIDE RECORDS SUMMARY | 2023-08-08 09:09 | XMS_ITS | Encounter Summary ---
Author Name Unknown Organization [facility] Address [address] [place] [address] Care Team Providers Care Geriatric Assistant Name Role Phone Fauzia Quinn MD Primary Care Provider +1- [phone] Encounter Details Date Type Department Care Team (Latest Contact Info) Description 01/16/1995 Notes/Orders Social History Tobacco Use Types Packs/Day Years Used Date Smoking Tobacco: Never Assessed Sex and Gender Information Value Date Recorded Sex Assigned at Not on file Gender Identity Not on file Sexual Orientation Not on file documented as of this encounter Plan of Treatment Not on file documented as of this encounter Visit Diagnoses Not on filedocumented in this encounter Care Teams Geriatric Assistant Relationship Specialty [place] [address] [place] [address] PCP - General 10/19/06 documented as of this encounter
--- OUTSIDE RECORDS SUMMARY | 2023-08-08 09:09 | XMS_ITS | Encounter Summary ---
Author Name Unknown Organization [facility] Address [address] [place] [address] Care Team Providers Care Ferryboat Captain Name Role Phone Fauzia Quinn MD Primary Care Provider [phone] Encounter Details Date Type Department Care Team (Late st Contact Info) Description 09/07/2002 [facility] [address] [place] [address] Nilesh Nino MD [address] [place], [place] [address] OPEN WOUND [place] Social History Tobacco Use [...] complication documented in this encounter Care Teams Ferryboat Captain Relationship Specialty [place] [address] [place], [place] [id number] PCP - General 10/19/06 documented as of this encounter
--- OUTSIDE RECORDS SUMMARY | 2023-08-08 09:09 | XMS_ITS | Encounter Summary ---
Author Name Unknown Organization [facility] Address [address] [place] [address] Care Team Providers Care Real Estate Executive Assistant Name Role Phone Fauzia Quinn MD Primary Care Provider +1- [phone] Encounter Details Date Type Department Care Team (Late st Contact Info) Description 05/08/1995 Notes/Orders [facility]-Family Practice [address] [place] [address] Med Rosenthal MD [address] [place] [address] Social History Tobacco Use Types Packs/Day Years Used Date Smoking Tobacco: Never Assessed Sex and Gender Information Value Date Recorded Sex Assigned at Not on file Gender Identity Not on file Sexual Orientation Not on file documented as of this encounter Plan of Treatment Not on file documented as of this encounter Visit Diagnoses Not on filedocumented in this encounter Care Teams Real Estate Executive Assistant Relationship Specialty [place] [address] [place] [address] PCP - General 10/19/06 documented as of this encounter
--- OUTSIDE RECORDS SUMMARY | 2023-08-08 09:09 | XMS_ITS | Encounter Summary ---
Author Name Unknown Organization [facility] Address [address] [place] [address] Care Team Providers Care Brusher Operator Name Role Phone Fauzia Quinn MD Primary Care Provider [phone]- [phone] Encounter Details Date Type Department Care Team (Latest Contact Info) Description 02/11/1997 Notes/Orders Nilesh Nino MD [address] [place], [place] [address] Social History Tobacco Use Types Packs/Day Years Used Date Smoking Tobacco: Never Assessed Sex and Gender Information Value Date Recorded Sex Assigned at Not on file Gender Identity Not on file Sexual Orientation Not on file documented as of this encounter Plan of Treatment Not on file documented as of this encounter Visit Diagnoses Not on filedocumented in this encounter Care Teams Brusher Operator Relationship Specialty [place] [address] [place] [address] PCP - General 10/19/06 documented as of this encounter
--- OUTSIDE RECORDS SUMMARY | 2023-08-08 09:09 | XMS_ITS | Encounter Summary ---
Author Name Unknown Organization [facility] Address [address] [place] [address] Care Team Providers Care Head Of It Name Role Phone Leidy Saucedo PA-C Primary Care Provider [phone] Encounter Details Date Type Department Care Team (Late st Contact Info) Description 02/15/2021 Documentation Only INTERFACED REPORT Unknown, Provider Social History Tobacco Use Types Packs/Day Years Used Date Smoking Tobacco: Never Smokeless Tobacco: Never Alcohol Use Standard Drinks/Week Comments No 0 (1 standard drink = 0.6 oz pur e alcohol) Sex and Gender Information Value Date Recorded Sex Assigned at Not on file Gender Identity Not on file Sexual Orientation Not on file COVID-19 Exposure Response Date Recorded In the last month, have you been in contact with someone who was confirmed or suspected to have Coronavirus / COVID-19? Yes 02/01/2021 8:45 AM LEATHER NOVELTY PARTS CUTTER documented as of this encounter Plan of Treatment Not on file documented as of this encounter Visit Diagnoses Not on filedocumented in this encounter Additional Health Concerns Infection Onset Date Last Indicated Resolved Time COVID-19 01/25/2021 02/02/2021 02/23/2021 11:4 2 PM LEATHER NOVELTY PARTS CUTTER documented as of this encounter Care Teams Head Of It Relationship Specialty Start Date End Date Leidy Saucedo PA-C [place] [address] [place] [address] PCP - General 02/01/21 documented as of this encounter
--- OUTSIDE RECORDS SUMMARY | 2023-08-08 09:09 | XMS_ITS | Encounter Summary ---
Author Name Unknown Organization [facility] Address [address] [place] [address] Care Team Providers Care Cereal Popper Name Role Phone Fauzia Quinn MD Primary Care Provider [phone] Encounter Details Date Type Department Care Team (Latest Contact Info) Description 09/17/1996 Notes/Orders Lesley De Leon, HOME MANAGER, TRANSMITTER TESTER [address] [place] [address] Social History Tobacco Use Types Packs/Day Years Used Date Smoking Tobacco: Never Assessed Sex and Gender Information Value Date Recorded Sex Assigned at Not on file Gender Identity Not on file Sexual Orientation Not on file documented as of this encounter Plan of Treatment Not on file documented as of this encounter Visit Diagnoses Not on filedocumented in this encounter Care Teams Cereal Popper Relationship Specialty [place] [address] [place] [address] PCP - General 10/19/06 documented as of this encounter
--- OUTSIDE RECORDS SUMMARY | 2023-08-08 09:09 | XMS_ITS | Encounter Summary ---
Author Name Unknown Organization [facility] Address [address] [place] [address] Care Team Providers Care Bumper And Painter Name Role Phone Fauzia Quinn MD Primary Care Provider [phone]- [phone] Encounter Details Date Type Department Care Team (Latest Contact Info) Description 08/16/1994 Notes/Orders Isaak Sweeney [place] Social History Tobacco Use Types Packs/Day Years Used Date Smoking Tobacco: Never Assessed Sex and Gender Information Value Date Recorded Sex Assigned at Not on file Gender Identity Not on file Sexual Orientation Not on file documented as of this encounter Plan of Treatment Not on file documented as of this encounter Visit Diagnoses Not on filedocumented in this encounter Care Teams Bumper And Painter Relationship Specialty [place] [address] [place] [address] PCP - General 10/19/06 documented as of this encounter
--- OUTSIDE RECORDS SUMMARY | 2023-08-08 09:09 | XMS_ITS | Encounter Summary ---
Author Name Unknown Organization [facility] Address [address] [place] [address] Care Team Providers Care Applications Scientist Name Role Phone Fauzia Quinn MD Primary Care Provider [phone]- [phone] Encounter Details Date Type Department Care Team (Latest Contact Info) Description 02/17/1996 Notes/Orders Social History Tobacco Use Types Packs/Day [...] filedocumented in this encounter Care Teams Applications Scientist Relationship Specialty [place] [address] [place] [address] PCP - General 10/19/06 documented as of this encounter
--- OUTSIDE RECORDS SUMMARY | 2023-08-08 09:09 | XMS_ITS | Encounter Summary ---
Author Name Unknown Organization [facility] Address [address] [place] [address] Care Team Providers Care Glue Maker Name Role Phone Fauzia Quinn MD Primary Care Provider [phone]- [phone] Encounter Details Date Type Department Care Team (Latest Contact Info) Description 01/09/1998 Orders Only Marciano Kelley MD Social History Tobacco Use Types Packs/Day Years Used Date Smoking Tobacco: Never Assessed Sex and Gender Information Value Date Recorded Sex Assigned at Not on file Gender Identity Not on file Sexual Orientation Not on file documented as of this encounter Plan of Treatment Not on file documented as of this encounter Visit Diagnoses Not on filedocumented in this encounter Care Teams Glue Maker Relationship Specialty [place] [address] [place] [address] PCP - General 10/19/06 documented as of this encounter
--- OUTSIDE RECORDS SUMMARY | 2023-08-08 09:09 | XMS_ITS | Encounter Summary ---
Author Name Unknown Organization [facility] Address [address] [place] [address] Care Team Providers Care Black Oxide Coating Equipment Tender Name Role Phone Fauzia Quinn MD Primary Care Provider [phone]- [phone] Encounter Details Date Type Department Care Team (Latest Contact Info) Description 12/11/1996 Notes/Orders Lesley De Leon, WAISTLINE JOINER, INSPECTOR AND TESTER [address] [place] [address] Social History Tobacco Use Types Packs/Day Years Used Date Smoking Tobacco: Never Assessed Sex and Gender Information Value Date Recorded Sex Assigned at Not on file Gender Identity Not on file Sexual Orientation Not on file documented as of this encounter Plan of Treatment Not on file documented as of this encounter Visit Diagnoses Not on filedocumented in this encounter Care Teams Black Oxide Coating Equipment Tender Relationship Specialty [place] [address] [place] [address] PCP - General 10/19/06 documented as of this encounter
--- OUTSIDE RECORDS SUMMARY | 2023-08-08 09:09 | XMS_ITS | Encounter Summary ---
Author Name Unknown Organization [facility] Address [address] [place] [address] Care Team Providers Care Paint Prep Technician Name Role Phone Fauzia Quinn MD Primary Care Provider [phone] Encounter Details Date Type Department Care Team (Late st Contact Info) Description 09/06/2002 Hospital External to Nilesh Nino MD [address] [place] [address] [facility] Social History Tobacco Use Types Packs/Day Years Used Date Smoking Tobacco: Never Alcohol Use Standard Drinks/Week Comments No 0 (1 standard drink = 0.6 oz pur e alcohol) Sex and Gender Information Value Date Recorded Sex Assigned at Not on file Gender Identity Not on file Sexual Orientation Not on file documented as of this encounter Progress Notes * Nilesh Nino - 09/06/2002 12:00 AM CDT documented in this encounter Plan of Treatment Not on file documented as of this encounter Visit Diagnoses Not on filedocumented in this encounter Care Teams Paint Prep Technician Relationship Specialty [place] [address] [place] [address] PCP - General 10/19/06 documented as of this encounter
--- OUTSIDE RECORDS SUMMARY | 2023-08-08 09:09 | XMS_ITS | Encounter Summary ---
Author Name Unknown Organization [facility] Address [address] [place] [address] Care Team Providers Care Piping Designer Name Role Phone Fauzia Quinn MD Primary Care Provider [phone] Encounter Details Date Type Department Care Team (Latest Contact Info) Description 03/22/1995 Notes/Orders Social History Tobacco Use Types Packs/Day Years Used Date Smoking Tobacco: Never Assessed Sex and Gender Information Value Date Recorded Sex Assigned at Not on file Gender Identity Not on file Sexual Orientation Not on file documented as of this encounter Plan of Treatment Not on file documented as of this encounter Visit Diagnoses Not on filedocumented in this encounter Care Teams Piping Designer Relationship Specialty [place] [address] [place] [address] PCP - General 10/19/06 documented as of this encounter
--- OUTSIDE RECORDS SUMMARY | 2023-08-08 09:09 | XMS_ITS | Encounter Summary ---
Author Name Unknown Organization [facility] Address [address] [place] [address] Care Team Providers Care Electrical Machinist Name Role Phone Fauzia Quinn MD Primary Care Provider +1 [phone] Encounter Details Date Type Department Care Team (Late st Contact Info) Description 09/06/2002 Hospital External to Nilesh Nino MD [address] [place] [address] [facility] delivery summary Social History Tobacco Use Types Packs/Day Years [...] on filedocumented in this encounter Care Teams Electrical Machinist Relationship Specialty [place] [address] [place] [address] PCP - General 10/19/06 documented as of this encounter
--- OUTSIDE RECORDS SUMMARY | 2023-08-08 09:09 | XMS_ITS | Encounter Summary ---
Author Name Unknown Organization [facility] Address [address] [place] [address] Care Team Providers Care Dewer Name Role Phone Fauzia Quinn MD Primary Care Provider [phone]- [phone] Encounter Details Date Type Department Care Team (Latest Contact Info) Description 09/21/1996 Notes/Orders Lesley De Leon, FRUIT GRADER, BIOCHEMISTRY TECHNICIAN [address] [place] [address] Social History Tobacco Use Types Packs/Day Years Used Date Smoking Tobacco: Never Assessed Sex and Gender Information Value Date Recorded Sex Assigned at Not on file Gender Identity Not on file Sexual Orientation Not on file documented as of this encounter Plan of Treatment Not on file documented as of this encounter Visit Diagnoses Not on filedocumented in this encounter Care Teams Dewer Relationship Specialty [place] [address] [place] [address] PCP - General 10/19/06 documented as of this encounter
--- OUTSIDE RECORDS SUMMARY | 2023-08-08 09:09 | XMS_ITS | Encounter Summary ---
Author Name Unknown Organization [facility] Address [address] [place] [address] Care Team Providers Care Educational Psychologist Name Role Phone Fauzia Quinn MD Primary Care Provider [phone]- [phone] Encounter Details Date Type Department Care Team (Latest Contact Info) Description 01/22/1997 Notes/Orders Nilesh Nino MD [address] [place], [place] [address] Social History Tobacco Use Types Packs/Day Years Used Date Smoking Tobacco: Never Assessed Sex and Gender Information Value Date Recorded Sex Assigned at Not on file Gender Identity Not on file Sexual Orientation Not on file documented as of this encounter Plan of Treatment Not on file documented as of this encounter Visit Diagnoses Not on filedocumented in this encounter Care Teams Educational Psychologist Relationship Specialty [place] [address] [place] [address] PCP - General 10/19/06 documented as of this encounter
--- OUTSIDE RECORDS SUMMARY | 2023-08-08 09:09 | XMS_ITS | Encounter Summary ---
Author Name Unknown Organization [facility] Address [address] [place] [address] Care Team Providers Care High Speed Warper Tender Name Role Phone Fauzia Quinn MD Primary Care Provider [phone]- [phone] Encounter Details Date Type Department Care Team (Latest Contact Info) Description 10/31/1997 Orders Only Nilesh Nino MD [address] [place] [address] Social History Tobacco Use Types Packs/Day Years Used Date Smoking Tobacco: Never Assessed Sex and Gender Information Value Date Recorded Sex Assigned at Not on file Gender Identity Not on file Sexual Orientation Not on file documented as of this encounter Plan of Treatment Not on file documented as of this encounter Visit Diagnoses Not on filedocumented in this encounter Care Teams High Speed Warper Tender Relationship Specialty [place] [address] [place] [address] PCP - General 10/19/06 documented as of this encounter
--- OUTSIDE RECORDS SUMMARY | 2023-08-08 09:09 | XMS_ITS | Encounter Summary ---
Author Name Unknown Organization [facility] Address [address] [place] [address] Care Team Providers Care Backwinder Name Role Phone Fauzia Quinn MD Primary Care Provider Encounter Details Date Type Department Care Team (Latest Contact Info) Description 10/16/1995 Notes/Orders Social History Tobacco Use Types Packs/Day Years Used Date Smoking Tobacco: Never Assessed Sex and Gender Information Value Date Recorded Sex Assigned at Not on file Gender Identity Not on file Sexual Orientation Not on file documented as of this encounter Plan of Treatment Not on file documented as of this encounter Visit Diagnoses Not on filedocumented in this encounter Care Teams Backwinder Relationship Specialty [place] [address] [place] [address] PCP - General 10/19/06 documented as of this encounter
--- OUTSIDE RECORDS SUMMARY | 2023-08-08 09:09 | XMS_ITS | Encounter Summary ---
Author Name Unknown Organization [facility] Address [address] [place] [address] Care Team Providers Care Medicare Specialist Name Role Phone Fauzia Quinn MD Primary Care Provider [phone]- [phone] Encounter Details Date Type Department Care Team (Latest Contact Info) Description 02/26/1997 Notes/Orders Marciano Kelley MD Social History Tobacco Use [...] on filedocumented in this encounter Care Teams Medicare Specialist Relationship Specialty [place] [address] [place] [address] PCP - General 10/19/06 documented as of this encounter
--- OUTSIDE RECORDS SUMMARY | 2023-08-08 09:09 | XMS_ITS | Encounter Summary ---
Author Name Unknown Organization [facility] Address [address] [place] [address] Care Team Providers Care Painter Ski Edge Name Role Phone Fauzia Quinn MD Primary Care Provider Encounter Details Date Type Department Care Team (Latest Contact Info) Description 09/09/1994 Notes/Orders Social History Tobacco Use Types Packs/Day Years Used Date Smoking Tobacco: Never Assessed Sex and Gender Information Value Date Recorded Sex Assigned at Not on file Gender Identity Not on file Sexual Orientation Not on file documented as of this encounter Plan of Treatment Not on file documented as of this encounter Visit Diagnoses Not on filedocumented in this encounter Care Teams Painter Ski Edge Relationship Specialty [place] [address] [place] [address] PCP - General 10/19/06 documented as of this encounter
--- OUTSIDE RECORDS SUMMARY | 2023-08-08 09:09 | XMS_ITS | Encounter Summary ---
Author Name Unknown Organization [facility] Address [address] [place] [address] Care Team Providers Care Bindery Machine Setter Name Role Phone Fauzia Quinn MD Primary Care Provider +1- [phone] Encounter Details Date Type Department Care Team (Latest Contact Info) Description 11/29/1995 Notes/Orders Social History Tobacco Use Types Packs/Day Years Used Date Smoking Tobacco: Never Assessed Sex and Gender Information Value Date Recorded Sex Assigned at Not on file Gender Identity Not on file Sexual Orientation Not on file documented as of this encounter Plan of Treatment Not on file documented as of this encounter Visit Diagnoses Not on filedocumented in this encounter Care Teams Bindery Machine Setter Relationship Specialty [place] [address] [place] [address] PCP - General 10/19/06 documented as of this encounter
--- OUTSIDE RECORDS SUMMARY | 2023-08-08 09:09 | XMS_ITS | Encounter Summary ---
Author Name Unknown Organization [facility] Address [address] [place] [address] Care Team Providers Care Office Nurse Name Role Phone Fauzia Quinn MD Primary Care Provider +1- [phone] Encounter Details Date Type Department Care Team (Late st Contact Info) Description 11/08/1993 Notes/Orders RG-Family Practice [address] [place] [address] Med Rosenthal MD [address] [place] [address] Social History Tobacco Use Types Packs/Day Years Used Date Smoking Tobacco: Never Assessed Sex and Gender Information Value Date Recorded Sex Assigned at Not on file Gender Identity Not on file Sexual Orientation Not on file documented as of this encounter Plan of Treatment Not on file documented as of this encounter Visit Diagnoses Not on filedocumented in this encounter Care Teams Office Nurse Relationship Specialty [place] [address] [place] [address] PCP - General 10/19/06 documented as of this encounter
--- OUTSIDE RECORDS SUMMARY | 2023-08-08 09:09 | XMS_ITS | Encounter Summary ---
Author Name Unknown Organization [facility] Address [address] [place] [address] Care Team Providers Care Packaging Materials Inspector Name Role Phone Fauzia Quinn MD Primary Care Provider +1- [phone] Encounter Details Date Type Department Care Team (Latest Contact Info) Description 03/18/1996 Notes/Orders Social History Tobacco Use Types Packs/Day Years Used Date Smoking Tobacco: Never Assessed Sex and Gender Information Value Date Recorded Sex Assigned at Not on file Gender Identity Not on file Sexual Orientation Not on file documented as of this encounter Plan of Treatment Not on file documented as of this encounter Visit Diagnoses Not on filedocumented in this encounter Care Teams Packaging Materials Inspector Relationship Specialty [place] [address] [place] [address] PCP - General 10/19/06 documented as of this encounter
--- OUTSIDE RECORDS SUMMARY | 2023-08-08 09:09 | XMS_ITS | Clinical Summary ---
Author Name Unknown Organization [facility] Address [address] [place] [address] Care Team Providers Care Tablet Machine Operator Name Role Phone Fauzia Benito MD Primary Care Provider [phone] Source Comments You are receiving this document as you are listed as the primary care provider,follow-up provider, or the patient has been referred to you for consultation.This is in compliance with the Medicare and[facility] EHR Incentive Program,which states Providers who transition their patient to another setting of careor provider of care or refers their patient to another provider of care shouldprovide summary care record for each transition of care or referral. [facility] Allergies No known active allergies Medications Medication Sig Dispensed Refills Start Date End Date Status ALBUTEROL 90 MCG/ACT IN AERSIndications:Intr insic asthma without status asthmaticus (HRC) 1 or 2 puffs by mouth every 4 hours as needed for wheezing 0 07/01/2005 Active PULMICORT TURBUHALER 200 MCG/INH IN AEPBIndications:Intr insic asthma without status asthmaticus (HRC) 1 or 2 puffs by mouth twice daily as needed for asthma 07/01/2005 Active ZADITOR 0.025 % OP SOLNIndications:Othe r chronic allergic conjunctivitis 1 drop to both eyes twice daily for allergic conjunctivis 3 bottles prn 07/01/2005 Active FLONASE 50 MCG/ACT NA SUSPIndications:Juan rgic rhinitis due to other allergen 1 spray each nostril twice daily for rhinitis 3 month prn 07/01/2005 Active DESONIDE 0.05 % EX CREAIndications:Cont act dermatitis and other eczema, due to unspecified cause Apply to facial rash daily as needed 60g prn 07/01/2005 Active CLARITIN OR None Entered Active PULMICORT IN None Entered Active ELIDEL 1 % EX CREA twice daily Activ e [id number] EXAMETH OP None Entered Active levothyroxine (SYNTHROID) 50 MCG tabletIndications:Hy pothyroidism, unspecified type (HRC) 1 tab in the morning, on empty stomach only with water, half an hour before breakfast. 90 Tablet 3 07/23/2020 Active Active Problems Problem Noted Date Diagnosed Date Other chronic allergic conjunctivitis 07/01/2005 Overview: ALLERGIC CONJUNCTIVITIS Intrinsic asthma without status asthmaticus 12/18 Overview: ASTHMA Allergic rhinitis 12/29/2003 Contact dermatitis and eczema 12/29/2003 Overview: ECZEMA Immunizations Name Administration Dates Next Due Flu Vac (3+ yrs) 01/24/2006, 5,01/28/2004,01/16/20 03,01/24/2001,01/20/2000,01/06/1999 HepB Ped/Adol (0-18 yrs) 10/17/1989,05/17/1989,0 04/19/1989 Influenza, Unspecified Formulation 12/25/1997, TB Skin Test (PPD) 07/01/2005 Td 08/16/2000,07/17/1990 Family History Medical History Relation Name Comments Hypertension Father Cancer, Prostate Maternal Grandmother Coronary Artery Disease Paternal Grandmother Diabetes, Type II Sister 3 Onset at 3 2, father has Type-I Thyroid Disorder Sister [address]'s daughter Cancer, Breast Negative Family History Cancer, Colon Negative Family History Cancer, Ovary Negative Family History Cerebrovascular Disease Negative Family History Relation Name Status Comments Father Alive Born 1944 Mother Alive Born 1943 Daughter Alive Kimmie, born 2002 Maternal Grandmother Paternal Grandmother Sister 1 Alive Born 1967 Sister 2 Alive Born 1971 Sister 3 Sister 4 Son Alive Erich, born 2 000 Social History Tobacco Use Types Packs/Day Years Used Date Smoking Tobacco: Never Alcohol Use Standard Drinks/Week Comments No 0 (1 standard drink = 0.6 oz pur e alcohol) Sex and Gender Information Value Date Recorded Sex Assigned at Not on file Gender Identity Not on file Sexual Orientation Not on file Last Filed Vital Signs Vital Sign Reading Time Taken Comments Blood Pressure 100/64 10/24/2006 11:00 AM CDT Pulse 74 10/24/2006 11:00 AM CDT Temperature 36.6 ??C (97.8 ??F) 07/01/2005 10:20 AM C DT Respiratory Rate 20 10/24/2006 11:00 AM CDT Oxygen Saturation - - Inhaled Oxygen Concentration - - Weight 64.5 kg (142 lb 3.2 oz) 10/24/2006 11:00 AM CDT Height 169.5 cm (5' 6.75) 10/24/2006 11:00 AM C DT Body Mass Index 22.44 10/24/2006 11:00 AM CDT Plan of Treatment Health Maintenance Due Date Last Done Comments Colon Cancer Screening Plan Due 1965 Pneumococcal (1 - PCV) 10/08/1971 HepB (1) 1984 10/17/1989, 04/21, 04/19/1989 Cervical Cancer Screening Due 10/25/2006 10/24/2006, 07/01/2005, 12/29/2003, Additional history exists Adult Preventive Visit 10/25/2007 08 7, 11/26/2001, 08/16/2000, Additional history exists Cholesterol 10/20/2011 10/19/2006, 08/2003, 11/27/2001, Additional history exists Mammogram 01/11/2013 01/12/2012 COVID-19 Vaccine ( season) 2022 06/30/2020 Influenza (Season Ended) 2023 020, 12/25/2018, 12/25/2017, Additional history exists DTaP/Tdap/Td (3 - Tdap) 04/05/2027 04/05/19 18, 11/12/2007, 08/16/2000, Additional history exists HIV Screening (Preventive Services) Completed 02/05/2002, 10/28/1998, 05/13/1998, Additional history exists Hep C Screening (Preventive Services) Completed 02/05/2002 Zoster/Shingles Completed 11/01/2018, 07/31/2018 HepA Aged Out No longer eligi ble based on patient's age to complete this topic Hib Aged Out No longer eligi ble based on patient's age to complete this topic IPV (Polio) Aged Out No longer eligi ble based on patient's age to complete this topic MCV4 Aged Out No longer eligi ble based on patient's age to complete this topic Procedures Procedure Name Priority Date/Time Associated Diagnosis Comments PAP TEST, ROUTINE Routine 10/24/2006 11: 00 AM CDT Screening for Malignant Neoplasm of the Cervix LIPID PANEL, FAST > 12 HOUR Routine 10/19/2006 8:32 AM CDT Routine General Medical Examination at [facility] HIV ANTIBODY Routine 02/05/2002 1:05 PM TRAY SERVICE WORKER HEPATITIS C ANTIBODY, WITH REFLEX Routine 02/05/2002 1:05 PM TRAY SERVICE WORKER from Last 3 Months or Most Recently Relevant to Health Maintenance Results * PAP TEST, ROUTINE (10/24/2006 11:00 AM CDT) Cytology, Pap (NOTE) Workers Compensation Analyst Cytology Report Patient Name: MIRTHA MCKEON Taken: 10/24/2006 Received: 10/25/2006 Reported: 11/02/2006 Physician(s): FAUZIA BENITO ([id number]) ?Source of Specimen Liquid routine Pap, cervical/endocervi dinah: ?Specimen Adequacy ?Satisfactory for evaluation. ??Endocervical component present. ? Final Cytologic Interpretation/Res ult NEGATIVE FOR INTRAEPITHELIAL LESION OR MALIGNANCY (NILM) ? quan/11/02/2006 Electronically Signed Out By RIZWANA Lee (ASCP) RIZWANA Lee (ASCP) ?Pap Smear History ?Date of Last Menstrual Period: ? 10/08/06 ?Contraceptive History: ?Not Stated/Unknown ?Other Clinical Conditions: ?LAST PAP: Normal HPV reflex testing requested with interpretation of ASCUS ? [facility] 10/24/2006 11:0 0 AM CDT 10/25/2006 9:09 AM CDT Fauzia Benito MD LAB_1 Performing Organization Address [facility] de Phone Number [facility] [address] [place] [phone] * CHOLESTEROL LIPID PANEL FAST >12HR (10/19/2006 8:32 AM CDT) Cholesterol 179 <200 mg/dl [facility] Triglyceride 76 <200 mg/dl [facility] HDL 52 >35 mg/dl [facility] LDL, Calc. 112 mg/dl [facility] Hours Fasting 12 hours [facility] 10/19/2006 8:32 AM CDT 10/19/2006 8:33 AM CDT Fauzia Benito MD LAB_1 Performing Organization Address [facility] de Phone Number [facility] [address] [place] [phone] * HEPATITIS C AB (02/05/2002 1:05 PM TRAY SERVICE WORKER) Anti-HCV Non-Reactive Does Not Rule Out Infection with HCV NR [facility] 02/05/2002 1:05 PM TRAY SERVICE WORKER 02/05/2002 1:06 PM TRAY SERVICE WORKER Nilesh Nino MD LAB_1 Performing Organization Address [facility] de Phone Number [address] [phone] * HIV 1/2 ANTIBODY (02/05/2002 1:05 PM TRAY SERVICE WORKER) HIV 1/2 Antibody Non-Reacti ve [facility] 02/05/2002 1:05 PM TRAY SERVICE WORKER 02/05/2002 1:06 PM TRAY SERVICE WORKER Nilesh Nino MD LAB_1 [facility] [address] [place] [phone] from Last 3 Months or Most Recently Relevant to Health Maintenance Care Teams Tablet Machine Operator Relationship Specialty [place] [address] [place] [address] PCP - General 10/19/06
--- OUTSIDE RECORDS SUMMARY | 2023-08-08 09:09 | XMS_ITS | Encounter Summary ---
Author Name Unknown Organization [facility] Address [address] [place] [address] Care Team Providers Care Damage Inside Adjuster Name Role Phone Fauzia Quinn MD Primary Care Provider [phone] Encounter Details Date Type Department Care Team (Latest Contact Info) Description 12/14/1998 Orders Only Marciano Kelley MD Social History [...] on filedocumented in this encounter Care Teams Damage Inside Adjuster Relationship Specialty [place] [address] [place] [address] PCP - General 10/19/06 documented as of this encounter
--- OUTSIDE RECORDS SUMMARY | 2023-08-08 09:10 | XMS_ITS | Encounter Summary ---
Author Name Unknown Organization [facility] Address [address] [place] [address] Care Team Providers Care Physician'S Assistant Name Role Phone Fauzia Quinn MD Primary Care Provider Encounter Details Date Type Department Care Team (Latest Contact Info) Description 03/23/1993 Notes/Orders Social History Tobacco Use Types Packs/Day Years Used Date Smoking Tobacco: Never Assessed Sex and Gender Information Value Date Recorded Sex Assigned at Not on file Gender Identity Not on file Sexual Orientation Not on file documented as of this encounter Plan of Treatment Not on file documented as of this encounter Visit Diagnoses Not on filedocumented in this encounter Care Teams Physician'S Assistant Relationship Specialty [place] [address] [place] [address] PCP - General 10/19/06 documented as of this encounter
--- OUTSIDE RECORDS SUMMARY | 2023-08-08 09:10 | XMS_ITS | Clinical Summary ---
Author Name Unknown Organization [facility] Address [place], [place] [address] Care Team Providers Care Cell Operator Name Role Phone Leidy Saucedo PA-C Primary Care Provider [phone] Allergies Active Allergy Reactions Criticality Noted Date Comments Bee Pollen Cough 10/26/2011 Sneezing, Gluten *Unknown 01/11/2022 Medications Medication Sig Dispensed Refills Start Date End Date Status acetaminophen (TYLENOL) 325 mg tablet Take 325-650 mg by mouth. Active albuterol HFA (PRO-AIR; VENTOLIN; PROVENTIL) 90 mcg/actuation inhaler Inhale 1-2 Puffs by mouth. Active apixaban (ELIQUIS) 2.5 mg tablet Take 2.5 mg by mouth. 02/10/2021 Active budesonide (PULMICORT) 180 mcg/actuation inhaler Inhale 1 Puff by mouth. Active carboxymethylcellulose 0.5% 0.5 % drop ophthalmic drops Place 1 Drop into the eye(s). Active levothyroxine (SYNTHROID) 50 mcg tablet Take 50 mcg by mouth. 07/23/2020 Active lifitegrast (Xiidra) 5 % dpet Place 1 Drop into the eye(s). Active pimecrolimus (Elidel) 1 % cream two times daily. Active pseudoephedrine (SUDAFED 12 HOUR) 120 mg TbER Take 120 mg by mouth two times daily. Active zafirlukast (ACCOLATE) 20 mg tablet Take 20 mg by mouth. Active Social History Tobacco Use Types Packs/Day Years Used Date Smoking Tobacco: Never Smokeless Tobacco: Never Alcohol Use Standard Drinks/Week Comments Never 0 (1 standard drink = 0.6 oz pur e alcohol) Sex and Gender Information Value Date Recorded Sex Assigned at Not on file Gender Identity Not on file Sexual Orientation Not on file Obstetrics History Last Filed Vital Signs Vital Sign Reading Time Taken Comments Blood Pressure 127/59 01/13/2022 12:45 PM CDT Pulse 58 01/13/2022 12:45 PM CDT Temperature 36.6 ??C (97.8 ??F) 01/13/2022 12:00 PM C DT Respiratory Rate 17 01/13/2022 12:45 PM CDT Oxygen Saturation 98% 01/13/2022 12:45 PM CDT Inhaled Oxygen Concentration - - Weight 64 kg (141 lb) 01/11/2022 9:11 AM CDT Height 167.6 cm (5' 6) 01/11/2022 9:11 AM CDT Body Mass Index 22.76 01/11/2022 9:11 AM CDT Plan of Treatment Health Maintenance Due Date Last Done Comments Tdap 1976 Depression screening for age 12+ 1977 HIV for age 15-65 1980 BMI (ht and wt on same day) for age 18+ 10/08/1983 Hepatitis C screening for age 18-79 10/08/1983 Tetanus booster 1985 Colonoscopy through age 75 2010 Lipids for age 45-75 2010 Mammogram for age 45-75 2010 Zoster (shingles) series for age 50+ (1 of 2) 10/08/2015 Pap test for age 21-65 04/05/2020 8, 04/05/2017, 01/07/2011 COVID-19 vaccine series (2022-24 season) 2022 12/31/2021, 05/28/2021, 07/21/2020, Additional history exists Influenza for age 50-64 11/19/2023 Pneumococcal series for age 6-64 Aged Out No longer eligible based on patient's age to complete this topic Procedures Procedure Name Priority Date/Time Associated Diagnosis Comments SECURITY INCIDENT HANDLER THIN PREP PAP SCREEN IMAGED Routine 04/05/2017 8:30 AM FORENSIC MANAGER from Last 3 Months or Most Recently Relevant to Health Maintenance Results * SECURITY INCIDENT HANDLER THIN PREP PAP SCREEN IMAGED (04/05/2017 8:30 AM FORENSIC MANAGER) Case Report Gynecologic Cytology Report ? Case: [id number] ? Authorizing Provider: ??Leidy Saucedo, AUSTYN ? Collected: ? 04/05/2017 0830 ? First Screen: ?Castro, Elena ?Received: ?04/06/2017 1211 ? Rescreen: ?Tanna Oneal ? Specimen: ?SECURITY INCIDENT HANDLER ThinPrep Vial Screening, Cervical/Vaginal ? 04/13/2017 9:28 AM [facility] [employer] [facility]-C ENTRAL LABORATORY INTERPRETATION/ RESULT NEGATIVE FOR INTRAEPITHELIAL LESION OR MALIGNANCY (NIL) (none) 04/13/2017 9:28 AM [facility] [employer] [facility] EN[facility]AL LAB[facility]AT[facility] IMEN ADEQUACY Satisfactory for evaluation Endocervical component present 04/13/2017 9:28 AM [facility] [employer] [facility] LAB[facility] Last Pap Date 02/16/2013 04/13/2017 9:28 AM [facility] [employer] [facility] Last Pap Result NIL 9:28 AM [facility] [employer] [facility] EN[facility]AL LAB[facility] Automated Review Successful 04/13/2017 9:28 AM FORENSIC MANAGER [facility]OR[facility]-C ENTRAL LABORATORY Comment:Specimen processed s uccessfully by automated practice administrator device, ThinPrep Imaging System, [employer] Note The pap test is a screening technique, not a diagnostic procedure. ??It is used primarily to screen for squamous cancers and precursor lesions. ??Published studies have shown that it is subject to both false negative and false positive results. ??The pap test should not be used as the sole means to diagnose or exclude pre-malignant and malignant lesions. Interpreted at [facility] ([facility], [facility], [facility], [facility], [facility], [facility], [facility]) 04/13/2017 9:28 AM FORENSIC MANAGER [facility]OR[facility]-C ENTRAL LABORATORY Other (Cervical/Vagina l) 04/05/2017 8:30 AM FORENSIC MANAGER 04/06/2017 12:11 PM FORENSIC MANAGER Leidy Saucedo PA-C PATHOLOGY/CYTOLOGY [facility]-CENTRAL LABORATORY [address] [place] [address], [place] from Last 3 Months or Most Recently Relevant to Health Maintenance Care Teams Cell Operator Relationship Specialty Start Date End Date Leidy Saucedo PA-C [address] [place] [address] PCP - General Physician Automatic Cigar Wrapper Tender 01/03/22
--- OUTSIDE RECORDS SUMMARY | 2023-08-08 09:10 | XMS_ITS | Encounter Summary ---
Author Name Unknown Organization [facility] Address [address] [place] [address] Care Team Providers Care Chemical Operations And Training Name Role Phone Fauzia Quinn MD Primary Care Provider [phone] Encounter Details Date Type Department Care Team (Late st Contact Info) Description 09/30/1993 Notes/Orders RG-Family Practice [address] [place] [address] Barbi Michaels MD Social History Tobacco Use Types Packs/Day Years Used Date Smoking Tobacco: Never Assessed Sex and Gender Information Value Date Recorded Sex Assigned at Not on file Gender Identity Not on file Sexual Orientation Not on file documented as of this encounter Plan of Treatment Not on file documented as of this encounter Visit Diagnoses Not on filedocumented in this encounter Care Teams Chemical Operations And Training Relationship Specialty [place] [address] [place] [address] PCP - General 10/19/06 documented as of this encounter
--- OUTSIDE RECORDS SUMMARY | 2023-08-08 09:10 | XMS_ITS | Encounter Summary ---
Author Name Unknown Organization [facility] Address [address] [place] [address] Care Team Providers Care Hand Heel Seat Fitter Name Role Phone Fauzia Quinn MD Primary Care Provider Encounter Details Date Type Department Care Team (Latest Contact Info) Description 08/20/1993 Notes/Orders Social History Tobacco Use Types Packs/Day Years Used Date Smoking Tobacco: Never Assessed Sex and Gender Information Value Date Recorded Sex Assigned at Not on file Gender Identity Not on file Sexual Orientation Not on file documented as of this encounter Plan of Treatment Not on file documented as of this encounter Visit Diagnoses Not on filedocumented in this encounter Care Teams Hand Heel Seat Fitter Relationship Specialty [place] [address] [place] [address] PCP - General 10/19/06 documented as of this encounter
--- NOTE | 2023-08-08 09:15 | MM_ITS ---
Patient: BRE CLARKE Facility:?[facility] Patient ID:?[id number] Site Patient ID:?[id number] Site :?1965 Study:?XRay-Breast Bilateral 3D W/CAD-08/08/2023 9:23:57 AM Ordering Physician:Inessa Final Report: BILATERAL SCREENING MAMMOGRAM WITH COMPUTER-AIDED DETECTION AND TOMOSYNTHESIS TECHNIQUE: CC and MLO views were obtained. These mammographic images have been obtained using full-field digital technique. These mammographic images were interpreted with the benefit of computer-aided detection. Breast Tomosynthesis was used in this interpretation. COMPARISON FILM: 08/01/22, 07/19/21, 06/29/20. FINDINGS: There are scattered areas of fibroglandular density IMPRESSION: There is no radiographic evidence for malignancy. ASSESSMENT: BI-RADS Category 1: Negative RECOMMENDATION: Routine screening mammogram in 1 year. A lay language report of this examination will be provided to the patient. Lucas Alvarez M.D. Diagnostic Radiologist [email or web address] JENNIFER/faye Transcribed: 2:14 p.margarette mckinney/Dictated by: Lucas Alvarez MD @ 08/08/2023 1:12:00 PM Signed by:?Lucas Alvarez MD @08/08/2023 2:18:02 PM (Electronic Signature)
== END 2023-08-08 09:02 | disposition home or self-care (01) ==
LOC: MAMMO 09:02
PROVIDERS: PCP Physician Assistant Medical; Visit Provider Physician Assistant Medical
DX: Z12.31 Encounter for screening mammogram for malignant neoplasm of breast (principal)
CPT/HCPCS: 77063; 77067

== ENCOUNTER 2023-08-22 07:33 | Outpatient (CLI) | payer OTHER, SELFPAY | END 2023-08-22 07:34 | disposition home or self-care (01) | LOC: NFLDREF 08-26 11:14 | PROVIDERS: PCP Physician Assistant Medical; Referring Provider Physician Assistant Medical; Visit Provider Physician Assistant Medical | DX: E87.6 Hypokalemia (principal); E03.9 Hypothyroidism, unspecified; N18.2 Chronic kidney disease, stage 2 (mild); Z13.220 Encounter for screening for lipoid disorders | CPT/HCPCS: 80053; 80061; 84443 ==

== ENCOUNTER 2023-10-10 08:15 | Outpatient (RCR) | payer OTHER, SELFPAY ==
--- NOTE | 2023-04-07 09:11 | OT.OPOE ---
OT Outpatient Ortho Eval OT Outpatient Ortho Eval* Start: 04/06/23 07:39 Freq: Status: Active Protocol: Document 04/06/23 07:39 ALVINO (Rec: 04/07/23 09:09 ALVINO [id number]) E-signed By Kimmie Gorman OTR/L, CLT OT OP Ortho Eval Details Complexity Complexity Low Insurance Information Other Insurance [employer] Outpatient History/Precautions Current Condition/Medical Diagnosis Referring Provider Georgina Barba PA-C Treatment Diagnosis pain in L wrist, muscle weakness Date of Onset 2 weeks ago Medical Conditions Respiratory Other Conditions Environmental Allergies, no latex or drug allergies Medication List: acetic acid 2% 2 drps otic ( ear) BID amoxicillin 875 mg PO BID 7 days budesonide 180 mcg/actuation ( Pulmicort Flexhaler) 1 inh inhalation BID usdhyehiisrnohb-[id number]-rhej10 0.5-1-0.5 % (Refresh Optive Advanced) 1 drp ophthalmic ( eye) Q1H PRN cholecalciferol (vitamin D3) 75 mcg PO QDAY estradiol 0.01%(0.1mg/gram) 1 g vaginal 3XW eyelid cleanser combination 7 (Ocusoft Lid Scrub Original topical foam) 1 applic topical BID fluticasone propionate 50 mcg/ actuation 1 spray intranasal BID hypochlorous-sod chlor-sod briana 1 applic topical BID ketotifen fumarate 0.025%(0. 035%) 1 drp ophthalmic (eye) BID levothyroxine 50 mcg PO DAILY lifitegrast 5% (Xiidra) 1 drp ophthalmic (eye) BID loratadine (Claritin) 10 mg PO QDAY pseudoephedrine HCl (Sudafed) 30 mg PO .hs PRN varenicline (Tyrvaya) 1 spray intranasal BID zafirlukast 20 mg PO BID Medical/Functional History Medical History Reviewed Yes Prior Level of Function/Mobility Fully Indep with Self Cares/ IADLs/Driving and Working 30 hours per week PMH includes but is not limited to: Medial epicondylitis, left elbow (Acute) M77.02 - Medial epicondylitis, left elbow (ICD-10) Left lateral epicondylitis ( Acute) M77.12 - Lateral epicondylitis , left elbow (ICD-10) Serous otitis media (Acute) H65.90 - Unspecified nonsuppurative otitis media, unspecified ear (ICD-10) Otitis media (Acute) H66.90 - Otitis media, unspecified, unspecified ear ( ICD-10) CKD (chronic kidney disease) ( Acute) N18.9 - Chronic kidney disease , unspecified (ICD-10) Hypokalemia (Acute) E87.6 - Hypokalemia (ICD-10) Female genital prolapse (Acute ) N81.9 - Female genital prolapse, unspecified (ICD-10) Asthma (Acute 01/06/10) Stable- 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.909 - Unspecified asthma, uncomplicated (ICD-10) Hypothyroidism (Acute) Levothyroxine replacement E03.9 - Hypothyroidism, unspecified (ICD-10) Celiac disease (Acute) Adheres to a gluten free diet 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 addiction treatment 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 K90.0 - Celiac disease (ICD-10 ) Eczema (Acute) L30.9 - Dermatitis, unspecified (ICD-10) Seasonal allergic rhinitis ( Acute 01/06/10) J30.2 - Other seasonal allergic rhinitis (ICD-10) Rosacea (Acute 01/06/10) L71.9 - Rosacea, unspecified ( ICD-10) Social History Current Occupation [employer] Other 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 Pain Assessment Pain Present Pain Present Pain Reported Location Left Wrist Description Dull, Achy,Shooting Intensity 6 Hand Pinch/Rn Clinical Research Strength Hand Left Rn Clinical Research Strength Position 1 (lbs) 41 Rn Clinical Research Strength Position 2 (lbs) 45 Lateral Pinch Strength (lbs) 9 Three Point Pinch (lbs) 12 Tip Pinch Strength (lbs) 9 Right Rn Clinical Research Strength Position 1 (lbs) 46 Rn Clinical Research Strength Position 2 (lbs) 50 Lateral Pinch Strength (lbs) 10 Three Point Pinch (lbs) 11 Tip Pinch Strength (lbs) 9 Upper Extremity Special Tests Wrist Durkan's Test Negative Right,Positive Left Tenosynovitis Wrist Finklestein Test Negative Right,Positive Left Upper Extremity Special Tests Comments Comments Maudsley?s test = Resisted third digit extension (L side +) Cozen?s test = Resisted wrist extension with radial deviation and full pronation ( L side +) OT Problems Problems Problems Decreased Strength,Pain, Lifting,Gripping,Pinching Patient Potential Good Assessment Assessment Assessment 57-year-old R hand dominant female, referred to skilled OT after visit to Urgent Care () with chief compliant of L wrist/forearm pain. At this apt she was given the diagnosis of: M77.02 - Medial epicondylitis, left elbow, given a prescription for prednisone and issued a L wrist brace. Patient's presentation of symptoms is mixed, L UE only effected, no pain at the elbow, pain/ discomfort on the flexor and extensor side of the forearm, both ulnar and radial side were equal in discomfort during special test. L side billing assistant/pinch strengths are not significantly less than the R (dominant) side, but both the R and L UE are below the norms for patient's gender/age. Patient is excellent candidate for therapy, she was pleasant , alert, orientated, asked great questions in session, was an active listener to information presented to her and showed signs of motivation /willingness to follow HEP/ recommendations given to her. PLAN: will treat as a tendonitis protocol, with use of Ultrasound, Ionto, Manual treatment (GRASTON), exercise and patient education. Occupational Therapy Treatment Plan - OP Potential Rehabilitation Potential Good Barriers Barriers to goal attainment 1. 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 2. No imaging was done at PCP- unknown amount of damage to tissues/tendons. Set Goals Goals Set with Patient Yes Goals Goals 1. Through activity participation in skilled therapy sessions, and consistency in performing a customized HEP, patient will improve capacity of tendons and muscles to manage load in order to have less pain with ADLs, work, leisure activities and IADLs. 2. Patient will verbalize 3 activity modifications to decrease abusive/overloading of the L UE muscles, joints & tendons. 3. Patient will slowly wean out of the L wrist brace from 8+ hours per day to less than 4 hours per day without increased pain levels. Target Date 8 weeks Treatment Plan Treatment Plan Evaluation,Edema Control, Iontophoresis,Manual Therapy, Ultrasound,Therapeutic Exercise,Therapeutic Activities,Self Care/Home Management,Education Expected Frequency 1-2x Week Expected Duration 8-10 Weeks Home Program Home Program Home Program Initiated Home Program Specifics Tendon Glides, Massage, Ice cup Massage, Wearing the L wrist splint at NOC and while at work (as much as possible when using the L hand) Recertification Information Recertification Information Initial Certification Date 04/06/23 Recertification Due Date 07/05/23 Click To Default 'Per treatment plan' Per treatment plan Continued Plan of Care and Interventions Per treatment plan Provider Signature Shows Agreement With POC & Medical Necessity Physician Comment/Change Comment or Changes Physician NPI Number #
== END 2023-10-10 11:38 | disposition home or self-care (01) ==
PROVIDERS: PCP Physician Assistant Medical; Visit Provider Physician Assistant Medical
DX: M77.02 Medial epicondylitis, left elbow (principal); M54.2 Cervicalgia; Z51.89 Encounter for other specified aftercare; H81.11 Benign paroxysmal vertigo, right ear
CPT/HCPCS: 97035; 97110; 97140; 97162; 97165; X5282

== ENCOUNTER 2024-09-09 10:15 | Outpatient (CLI) | payer BC, SELFPAY ==
--- NOTE | 2024-09-09 10:45 | CRLHL7_ITS ---
For Patients: As a result of the Cures Act, medical imaging exams and procedure reports are released immediately into your electronic medical record. You may view this report before your referring provider. If you have questions, please contact your health care provider. BILATERAL DIAGNOSTIC MAMMOGRAM WITH COMPUTER-AIDED DETECTION AND TOMOSYNTHESIS RIGHT BREAST ULTRASOUND CLINICAL HISTORY: RIGHT breast pain. COMPARISON: 08/08/2023, 08/01/2022, 07/19/2021. TECHNIQUE: Digital BILATERAL mammogram in four projections with computer-aided detection. Tomosynthesis was used in this interpretation. Real-time ultrasound imaging of RIGHT breast with imaging documentation. BREAST COMPOSITION: There are scattered areas of fibroglandular density. FINDINGS: 3D CC/MLO BILATERAL mammogram images submitted. No suspicious masses or architectural distortion. Benign calcifications are present. Targeted RIGHT breast ultrasound performed in the area of concern, retroareolar space. No fibrocystic change or solid mass. No suspicious findings. IMPRESSION: No suspicious findings. No evidence of malignancy. RECOMMENDATIONS: Routine screening mammography. A lay language report of this examination will be provided to the patient. BI-RADS Category 2. Benign. Dictated by Lucas Alvarez MD @ 09/09/2024 11:43:20 AM /sp SP/Dictated by: Lucas Alvarez MD @ 09/09/2024 11:43:00 AM (Electronically Signed)
--- NOTE | 2024-09-09 11:15 | CRLHL7_ITS ---
For Patients: As a result of the Century Cures Act, medical imaging exams and procedure reports are released immediately into your electronic medical record. You may view this report before your referring provider. If you have questions, please contact your health care provider. PLEASE SEE BILATERAL BREAST DIAGNOSTIC MAMMOGRAM PERFORMED SAME DAY. CRL:sp SP/Dictated by: Lucas Alvarez MD @ 09/09/2024 11:43:00 AM (Electronically Signed)
== END 2024-09-09 10:16 | disposition home or self-care (01) ==
LOC: MAMMO 10:15
PROVIDERS: PCP Physician Assistant Medical; Visit Provider Physician Assistant Medical
DX: N64.4 Mastodynia (principal)
CPT/HCPCS: 76642; 77066; G0279

== ENCOUNTER 2024-09-24 07:30 | Outpatient (CLI) | payer BC, SELFPAY | END 2024-09-24 07:31 | disposition home or self-care (01) | LOC: NFLDREF 09-26 09:57 | PROVIDERS: PCP Physician Assistant Medical; Referring Provider Physician Assistant Medical; Visit Provider Physician Assistant Medical | DX: Z00.00 Encounter for general adult medical examination without abnormal findings (principal); E03.9 Hypothyroidism, unspecified; E87.1 Hypo-osmolality and hyponatremia; N18.9 Chronic kidney disease, unspecified | CPT/HCPCS: 80053; 80061; 84443 ==

== ENCOUNTER 2024-11-20 03:15 | Emergency (ER) | payer BC, SELFPAY ==
--- OUTSIDE RECORDS SUMMARY | 2023-05-26 07:08 | XMS_ITS | Continuity of Care Document ---
Author Organization [facility] Address [address] [address] [place] [address] Phone Care Team Providers Care Police Worker Name Role Phone Jim Shaw MD Unavailable Unavaila ble Allergies, Adverse Reactions, Alerts Substance Reaction Status Criticality gluten Active No Information WARNIN allergy(ies) could not be collected because the type is not supported. Please contact the source practice for further details. Medications Medication Instructions Dosage Effective Dates (start - stop) Status Comments Xifaxan 550 mg tablet 550mg po tid X14 days - Active ESTRADIOL (unknown strength) insert 0.5g by vaginal route 3 times every week Not Available - Active magnesium 200 mg tablet take 1 by oral route every day 1 - Active THYMUS (unknown strength) take 2 capsule by oral route every day Thymus PMG-Standard Process Not Available - Active Herbal Medications/Supplemen ts unknown take 1 capsule by oral route every day Parotid PMG-Standard Process - Active Herbal Medications/Supplemen ts unknown take 1 drop by oral route every day Lymph-tone ll-Energetix (35 drops) - Active Herbal Medications/Supplemen ts unknown take 1 capful by oral route every day Chemicals-Detoxosod e - Active Pulmicort Flexhaler 180 mcg/actuation breath activated inhale 1 puff by inhalation route 2 times every day 180 MCG - Active Refresh Tears 0.5 % eye drops apply 1 drop by ophthalmic route 6 times every day 1 drop - Active pseudoephedrine 30 mg tablet take 1 dose by oral route every 2 days 30 MG - Active loratadine 10 mg tablet take 1 tablet by oral route every day 10 MG - Active AQUA-D CONCENTRATE (unknown strength) take 3 drop by oral route every day Not Available - Active Antihistamines unknown apply 1 drop by ophthalmic route 2 times every day - Active albuterol sulfate HFA 90 mcg/actuation aerosol inhaler inhale 2 puff by inhalation route every 4 - 6 hours as needed 180 MCG - Active zafirlukast 20 mg tablet take 1 tablet by oral route 2 times every day at least 1 hour before or 2 hours after meals 20 MG - Active levothyroxine 50 mcg capsule take 1 by Oral route every day 1 - Active Xiidra 5 % eye drops in a dropperette instill 1 drop by ophthalmic route 2 times every day into both eyes approximately 12 hours apart 1.00 drop - Active PULMICORT FLEXHALER (unknown strength) inhale 1 puff by inhalation route 2 times every day as needed Not Available - Active Flonase 50 mcg/Actuation Nasal Center Inhale two times via nostril daily - Active acetic acid 2 % ear solution - Active Alaway 0.025 % (0.035 %) eye drops apply 1 drop by Ophthalmic route every day prn 1 drop - Active fluocinolone acetonide oil 0.01 % ear drops instill 5 drop by otic route 2 times every day into affected ear(s) 5.00 drop - Active Procedures Procedure Date Established Level 4 Offic/outpt E&m Estab Low-mod 3 Dietitian New Virtual Visit Established Level 4 Breath Test Lactose Breath Test Fructose Offic/outpt E&m Estab Mod-hi 4 Routine Serum Collection Breath Test Glucose Established Level 5 Colonoscopy Flex; W/remov Les- Level Iv-surg Path Gross/micro 21 Colonoscopy Flex; W/remov Les 20 Level Iv-surg Path Gross/micro 20 Offic/outpt E&m Estab Mod-hi 2 15 Routine Serum Collection Bld Ct; Hg/pltlt Ct Auto/compl 15 Comp Metabolic Panel Bld Ct; Hg/pltlt Ct Auto/compl 13 Cyanocobalamin Creatinine; Bld Iron Iron Binding Capacity Urea Nitro; Donaldo Thyroid Stim Hormone Calcium; Tot Offic Cons New/estab Mod Routine Serum Collection Offic/outpt E&m Estab Low-mod 0 [id number] Colonoscopy Flex; W/bx 1/mx Ugi Endo; W/bx 1/mx Level Iv-surg Path Gross/micro 10 Immunocytochemistry, Each Antibody Offic Cons New/estab Mod-hi 60 09 [id number] Advance Directives Directive Yes / No Effective Date File Name No Information Encounters Encounter Description Practice Location Reason(s) For Visit Diagnoses Date Provider Providers Copied on Encounter [facility], [address] [address], [place], [id number], [place] tel:[phone] [facility] Pancreas cyst 4 Colin MENDIETA [facility]. [address] [facility], [facility] [address], [place], [place], [id number], [place]. tel:[phone] Established Level 4 [facility], [address] [address], [place], [id number], [place] tel:[phone] [facility] GI Symptoms or Concerns (chief complaint) Chronic constipationS mall intestinal bacterial overgrowth (SIBO)Bloatin g 3 No Information Referring Provider: Referral Self, USE FOR SELF REFERRALS. [facility], [address] [address], [place], [id number], [place] tel:[phone] [facility] Pancreas cyst 3 Colin Fernandez. [address] [facility], [address], [id number], [place]. tel:[phone] Offic/outpt E&m Estab Low-mod [facility], [address] [address], [place], [id number], [place] tel:[phone] [facility] GI Symptoms or Concerns (chief complaint) Small intestinal bacterial overgrowth (SIBO)Celiac diseasePolyp of colon, unspecified part of colon, unspecified type 3 Padilla Terrazas. [address] [place] [address], [id number], [place]. tel:[phone] Referring Provider: Referral Self, USE FOR SELF REFERRALS. [facility], [address] [address], [place], [id number], [place] tel:[phone] [facility] GI Symptoms or Concerns (chief complaint) Small intestinal bacterial overgrowth (SIBO)Dietary counseling and surveillance 3 Meng Bailon. [address], [id number], [place]. tel:[phone] Referring Provider: Referral Self, USE FOR SELF REFERRALS. Established Level 4 [facility], [address] [address], [place], [id number], [place] tel:[phone] [facility] GI Symptoms or Concerns (chief complaint) Glucose intoleranceBl oatingHistory of pancreatitis 2 Aman Castillo. [address] [facility], [address], [id number], [place]. tel:[phone] Referring Provider: Referral Self, USE FOR SELF REFERRALS. [facility], [address] [address], [place], [id number], [place] tel:[phone] [facility] No Information 2 Aman Castillo. [address] [facility], [address] [address], [place], [place], [id number], [place]. tel:[phone] [facility], [address] [address], [place], [id number], [place] tel:[phone] [facility] Pancreas cyst 2 Colin Fernandez. [address] [facility], [facility] [address], [place], [id number], [place]. tel:[phone] [facility], [address] [address], [place], [place], [address], [place] tel:[phone] [facility] Abdominal distension (gaseous) 2 Aman Castillo. [address] [facility], [address], [id number], [place]. tel:[phone] Referring Provider: Referral Self, USE FOR SELF REFERRALS. [facility], [address] [address], [place], [place], [id number], [place] tel:[phone] [facility] Abdominal distension (gaseous) 2 Aman Castillo. [address] [facility], [facility] [address], [place], [place], [id number], [place]. tel:[phone] Referring Provider: Referral Self, USE FOR SELF REFERRALS. Offic/outpt E&m Estab Mod-hi 4 [facility], [address] [address], [facility] [place], [address], [place] tel:[phone] [facility] GI Symptoms or Concerns (chief complaint) BloatingChron ic constipationF emale cystoceleHist ory of pancreatitis 2 Aman Castillo. [address] [facility], [facility] [address], [place], [place], [id number], [place]. tel:[phone] Referring Provider: Leidy NIETO, [address], [place], [address]. tel:[phone] [facility], [address] [address], [place], [id number], [place] tel:[phone] [facility] Abdominal distension (gaseous) Nov-0 2 Aman Castillo. [address] [facility], [facility] [address], [place], [place], [address], [place]. tel:[phone] Referring Provider: Jonathan Sutton, [address] [address], [place], [address] . tel:[phone] Established Level 5 [facility], [address] [address], [place], [id number], [place] tel:[phone] [facility] GI Symptoms or Concerns (chief complaint) BloatingAbdom inal pain in femaleChronic constipationF emale cystocele 2 Aman Castillo. [address] [facility], [address], [id number], [place]. tel:[phone] Referring Provider: Referral Self, USE FOR SELF REFERRALS. [facility], [address] [address], [place], [id number], [place] tel:[phone] [facility] No Information 2 Reagan Wang. [address] [facility], [address] [address], [place], [place], [id number], [place]. tel:[phone] [facility], [address] [address], [place], [id number], [place] tel:[phone] [facility] Colorectal polypsOther fecal abnormalities Personal history of colonic polypsBenign neoplasm of cecumBenign neoplasm of cecum 1 Jose Harkins. [address] [facility], [facility] [address], [place], [place], [address], [place]. tel:[phone] Referring Provider: Leidy Saucedo PAC, [address], [place], [address]. tel:[phone] [facility], [address] [address], [place], [id number], [place] tel:[phone] [facility] No Information 1 Harpreet Kang. [address] [facility], [facility] [address], [place], [place], [id number], [place]. tel:[phone] [facility], [address] [address], [place], [id number], [place] tel:[phone] [facility] Screening ColonoscopyCo lorectal polypsBenign neoplasm of ascending colonEncounte r for screening for malignant neoplasm of colonBenign neoplasm of ascending colon 0 Virginia Toledo. [address] [facility], [facility] [address], [place], [address], [place]. tel:[phone] Referring Provider: Referral Self, USE FOR SELF REFERRALS. [facility], [address] [address], [place], [id number], [place] tel:[phone] [facility] No Information 9 Harpreet Kang. [address] [facility], [facility] [address], [place], [address], [place]. tel:[phone] Offic/outpt E&m Estab Mod-hi 2 [facility], [address] [address], [place], [id number], [place] tel:[phone] [facility] GI Symptoms or Concerns (chief complaint) DiarrheaCelia c Sprue/nontrop icalMicroscop ic colitis 5 Edstrom JEOVANNY Riley. [address] [facility], [facility] [address], [place], [place], [id number], [place]. tel:[phone] Referring Provider: Referral Self, USE FOR SELF REFERRALS. Offic Cons New/estab Mod [facility], [address] [address], [place], [id number], [place] tel:[phone] [facility] Celiac Sprue/nontrop icalConstipat ion Unspecified 3 Saul Geiger. [address] [facility], [facility] [address], [place], [place], [address], [place]. tel:[phone] Referring Provider: Paris Hammer, [address], [place], [address]. tel:[phone] Offic/outpt E&m Estab Low-mod [facility], [address] [address], [place], [place], [id number], [place] tel:[phone] [facility] Collagenous Colitis (chief complaint)fe els good on a low fiber diet (chief complaint) Colitis Unspecified/I BDColitis Unspecified/I BDDiarrheaCel iac Sprue/nontrop ical 7-201 0 No Information [facility], [address] [address], [place], [place], [id number], [place] tel:[phone] [facility] Celiac Sprue/nontrop icalGastritis W/o BleedPolyp-in jp/rect/stom -unc BehColitis Unspecified/I BDGastritis W/o BleedCeliac Sprue/nontrop icalDiarrhea 6-201 0 Saul Geiger. [address] [facility], [facility] [address], [place], [place], [address], [place]. tel:[phone] Offic Cons New/estab Mod-hi 60 [facility], [address] [address], [place], [place], [address], [place] tel:[phone] [facility] Celiac Sprue (chief complaint) Celiac Sprue/nontrop ical 9200 9 Moisés Tyler. [address] [facility], [address] [address], [place], [place], [address], [place]. tel:[phone] Family History Family Member Type Diagnosis Age At Onset Daughter Problem (finding) Alive and well Mother Problem (finding) Alive and well Sister Problem (finding) Thyroid disorder Father Problem (finding) Alive and well Son Problem (finding) Crohn's disease Son Problem (finding) celiac disease Sister Problem (finding) Alive and well Immunizations Vaccine Date Status Comments SARS-COV-2 (COVID-19) vaccin e, mRNA, spike protein, LNP, bivalent booster, preservative free, 30 mcg/0.3 mL dose, roderick-sucrose formulation administered Note: [facility] bi-d irectional interface ; Source: Other Registry SARS-COV-2 (COVID-19) vaccin e, mRNA, spike protein, LNP, preservative free, 30 mcg/0.3mL dose, roderick-sucrose formulation administered Note: [facility] C bi- directional interface ; Source: Other Registry Pnuemovax administered Note: [facility] bi-d irectional interface ; Source: Other Registry SARS-COV-2 (COVID-19) vaccin e, mRNA, spike protein, LNP, preservative free, 30 mcg/0.3mL dose administered Note: [facility] bi-direct ional interface ; Source: Other Registry SARS-COV-2 (COVID-19) vaccin e, mRNA, spike protein, LNP, preservative free, 30 mcg/0.3mL dose administered Note: [facility] bi-direct ional interface ; Source: Other Registry Pnuemovax administered Note: [facility] bi-d irectional interface ; Source: Other Registry Pnuemovax administered Note: [facility] bi-d irectional interface ; Source: Other Registry zoster vaccine recombinant administered N ote: [facility] bi-directional interface ; Source: Other Registry zoster vaccine recombinant administered N ote: [facility] bi-directional interface ; Source: Other Registry Pnuemovax administered Note: [facility] bi-d irectional interface ; Source: Other Registry tetanus and diphtheria toxoi ds, adsorbed, preservative free, for adult use (2 Lf of tetanus toxoid and 2 Lf of diphtheria toxoid) administered Note: [facility] bi-direct ional interface ; Source: Other Registry Pnuemovax administered Note: [facility] bi-d irectional interface ; Source: Other Registry Influenza virus vaccine, injectable, quadrivalent, split virus, preservative free, 3 years or older Fluarix, Flulaval or Fluzone Quad administered Note: Invalid docume nted admin date was //2013. ; Source: Other Provider Influenza, seasonal, injectable administe red Note: [facility] bi- directional interface ; Source: Other Registry Influenza, seasonal, injectable administe red Note: [facility] bi- directional interface ; Source: Other Registry Influenza, seasonal, injectable administe red Note: [facility] bi- directional interface ; Source: Other Registry tetanus toxoid, reduced diphtheria toxoid, and acellular pertussis vaccine, adsorbed administered Note: [facility] bi-direct ional interface ; Source: Other Registry influenza virus vaccine, unspecified formulation administered Note: [facility] bi-di rectional interface ; Source: Other Registry Influenza, seasonal, injectable administe red Note: [facility] bi- directional interface ; Source: Other Registry Influenza, seasonal, injectable administe red Note: [facility] bi- directional interface ; Source: Other Registry Influenza, seasonal, injectable administe red Note: [facility] bi- directional interface ; Source: Other Registry Influenza, seasonal, injectable administe red Note: [facility] bi- directional interface ; Source: Other Registry Influenza, seasonal, injectable administe red Note: [facility] bi- directional interface ; Source: Other Registry tetanus and diphtheria toxoi ds, adsorbed, preservative free, for adult use (2 Lf of tetanus toxoid and 2 Lf of diphtheria toxoid) administered Note: [facility] bi-direct ional interface ; Source: Other Registry Influenza, seasonal, injectable administe red Note: [facility] bi- directional interface ; Source: Other Registry Influenza, seasonal, injectable administe red Note: [facility] bi- directional interface ; Source: Other Registry influenza virus vaccine, unspecified formulation administered Note: [facility] bi-di rectional interface ; Source: Other Registry influenza virus vaccine, unspecified formulation administered Note: [facility] bi-di rectional interface ; Source: Other Registry tetanus and diphtheria toxoi ds, adsorbed, preservative free, for adult use (2 Lf of tetanus toxoid and 2 Lf of diphtheria toxoid) administered Note: [facility] bi-direct ional interface ; Source: Other Registry [facility] administered Note: [facility] bi-directional interface ; Source: Other Registry [facility] administered Note: [facility] bi-directional interface ; Source: Other Registry [facility] administered Note: [facility] bi-directional interface ; Source: Other Registry Payers Payer name Insurance type Covered republican ID Sampson dutta(s) Jordana CHAVARRIA [id number] Social History Type Description Quantity Date Captured Comments Alcohol Use Details Unknown Caffeine Use Details Unknown Tobacco Use Status No Information Smoking Status No Information Sex Female Chief Complaint And Reason For Visit No Information Reason For Referral Reason For Referral No Information Plan Of Treatment Date Type Action Status Referral Ordered: follow-up visit with aman 5 Months Appointment date/timeframe: 5 Months ordered Referral Ordered: MRCP Biliary/Pancreatic Ducts WITHOUT And WITH Contrast Appointment date/timeframe: 04/15/2022 ordered Referral Ordered: EUS Appointment date/timeframe: 01/13/2022 ordered Referral Ordered: Xray Abdomen; Sitz Marker Study/CTS Appointment date/timeframe: 01/07/2022 ordered Referral Ordered: Breath Test Glucose Appointment date/timeframe: 11/02/2021 ordered Referral Ordered: Breath Test Lactose Appointment date/timeframe: 11/02/2021 ordered Referral Ordered: Breath Test Fructose Appointment date/timeframe: 11/02/2021 ordered Referral Ordered: Abdomen X-ray; Limited (AP view only) (KUB) Appointment date/timeframe: -today ordered History Of Present Illness Encounter Date Complaint History Of Prese nt Illness GI Symptoms or Concerns Katherin ojeda is a pleasant 56-year-old female who is seen for follow-up evaluation of abdominal pain, bloating in the setting of glucose intolerance, and constipation with very redundant colon. This was a virtual visit. Patient consented to the online format and reported she was alone for today's visit. This is my first time seeing the patient however she has been seen by several providers within our service. She has been seen for complaints of several GI symptoms that have been present since her 20s. She has known breath test positive SIBO. She was treated with rifaximin, April 2022, noting today that she did not really notice much difference. She continues to report that she follows a very strict FODMAP diet, purees her vegetables and avoids eating large meals. She has met with our registered dietitian who has been very helpful in helping her to manage her food choices. She states that if she deviates from portion control and soft pureed foods she will experience severe constipation. She states that she takes 2 doses of MiraLax every day which she does find helpful. She reports daily loose stools that are described as floating Helix type 5 and 6. She verbalizes concern that there continues to be abnormalities of her intestine. Patient has had colonoscopy 04/14/2020. This was significant for 1 adenomatous polyp and 1 inflammatory polyp. Recommendation to repeat colonoscopy in 7 years. Patient also has history of GERD which she states is managed specifically with her diet noting the small frequent meals, avoidance of eating 3 hours before bedtime and avoiding trigger foods has been the most beneficial. The patient denies alarm features such as nausea, vomiting, unintentional weight loss, black or bloody stools. GI Symptoms or Concerns This is a 56-year-old female who presents today in followup for further evaluation of irregular bowel habits and gaseous distention. She was last seen by Dr. Bragg on March 02, 2022, but has been seen by multiple providers at [facility]. This is the 1st time I am meeting the patient.The patient does have a fairly extensive GI history. She was seen back in 2009 and underwent a colonoscopy which was endoscopically normal, but did show collagenous colitis. She had failed to respond to Pepto-Bismol and has resorted to a special carbohydrate diet to control her microscopic colitis symptoms. Upper endoscopy at that time was unremarkable with the exception of gastric biopsy showing nonspecific chronic inflammation. 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 She has been on a strict gluten-free diet since then. More recently, the patient has been followed by Dr. Bragg. She has had difficulties with chronic constipation and I be GI Symptoms or Concerns [place] Nutrition AssessmentFood and Exercise History: Current food choices are mostly limited to pureed spinach, pureed chicken/fish, pureed white rice, applesauce, pureed winter squash, almond butter, honey, tomato juice, pureed broccoli/cabbage/carrot mixture, mashed hard boiled eggs. Nutrition Diagnosis:Altered GI function related to small intestinal bacterial overgrowth as evidenced by positive glucose breath test. Nutrition Discussion and Education:Met with patient via virtual visit today. Patient was tearful and frustrated for much of the appointment. She has an extensive GI history including celiac disease, colitis, reflux, rectal prolapse with multiple surgeries including recent, redundant colon, more recent diagnosis of SIBO confirmed by breath test. Also noted history of acute pancreatitis requiring hospital stay. Patient reports she follows a strict gluten free diet, confirms she has checked products like medications, toothpaste, etc. Patient was referred to me for low fodmap diet education. Patient is currently only eating approximately 13 foods and most need to be mashed or pureed. She states that if she eats something like brown rice or three small ibrahim tomatoes, she experiences diarrhea and pain. She is not on medication management for colitis and feels that she may need to be. From our conversation today, it does sound like she may indeed be in a flare or need further management for this as she has already made dietary adjustments regarding fiber and texture of foods and is currently very restricted with what she can tolerate. She also recently tested positive for SIBO but has not taken medication to treat this. She states she was told that most insurance companies do not cover Rifaximin but she is unsure if a prescription was actually run through insurance or not. She would like to pursue treatment for this upon conversation today. If not covered and she is unable to pay out of pocket, I encouraged her to speak with a provider regarding other options as it sounds like this was discussed at one point. We did discuss making some dietary swaps with low fodmap foods for the few high fodmap foods she does eat to see if this helps while she is seeking further medical treatment. She is welcome to follow ups as needed. GI Symptoms or Concerns This was a virtual visit with Ms. Mirtha Mckeon. She consented to proceed with the virtual visit. She was at home by herself. We spoke for 21 minutes and I spent additional 18 minues reviewing her chart and coordinating her care. This is in regards to abdominal pain, bloating in the setting of glucose intolerance and known constipation and very redundant colon as well as what appears to be a pelvic floor dyssynergia and an episode of pancreatitis that required admission at [facility] for pancreatitis. The patient has been suffering from several GI symptoms since her 20s. 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 When she was last seen in clinic in 2014 for the same symptoms, it appeared that she was having overflow diarrhea in the setting of significant constipation as evidenced by an abdominal x-ray that showed a large amount of stool burden throughout the colon. The patient now tells me initially that what comes out are pellets and then when I suggested that she was constipated, she stated she does not believe that she is constipated because that she has long and lumberjack like stools and she feels her symptoms are not driven by the constipation and there must be something else.The patient states she underwent surgery in 2020 for prolapse. It appears that her prolapse was likely a cystocele. She also tells me that she was told she had rectal prolapse as well. She is not quite clear, but she is followed in the [facility] and urogyn. She is having surgery again this month. The patient says she does experience reflux symptoms especially when she is bloated. She was crying on and off for much of the visit because she is understandably very affected by her symptoms. She is also working with product development worker to help her figure out what foods she can eat. From what she tells me her that is quite heavy in vegetables, that she mostly eats in purees because she cannot tolerate them otherwise.She did have a colonoscopy by Dr. Coleman for colon cancer screening purposes in March of 2019 and she was found to have a very redundant colon and her prep was fair. Four polyps were removed from the ascending colon, which on histopathology were consistent with 1 tubular adenoma and rest of them were normal colon tissue. She underwent another colonoscopy by Dr. Garcia in March of 2020. At this time, she said she did very extended prep and her prep appeared better at this time around, and she was found to have 1 tubular adenoma in the cecum and an inflammatory polyp at the hepatic flexure. There was an evidence of colitis.After I had a VV on 11/18/21, we discussed doing a breath test. She completed the glucose breath test, which was positive but soon after developed severe epigastric abdominal that sent her to the ER and was diagnosed with pancreatitis. She also had vaginal yeast infection and vaginosis, which she was treated with two tablets of what sounds like fluconazole. She completed the fructose and glucose breath test thereafter, which were negative. She underwent EUS on 01/13/22, which showed a small cyst otherwise no other abnormalities. She tells me as long as she eats small frequent meals and also purees her vegetables, she does not have abdominal pain or bloating. She says if she has a large meal especially in the evening, she has issues with reflux too. She is very frustrated that this is how she has to live.Overall, she is feeling better now actually. She is eating small frequent meals and low fat. If she eats large meal, she develops reflux. GI Symptoms or Concerns This was an in person visit with . Mirtha Mckeon. She is here by herself. I spent 32 minutes face to face with her and spent additional 18 minues reviewing her chart and coordinating her care. 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 The patient has been suffering from several GI symptoms since her 20s. 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 When she was last seen in clinic in 2014 for the same symptoms, it appeared that she was having overflow diarrhea in the setting of significant constipation as evidenced by an abdominal x-ray that showed a large amount of stool burden throughout the colon. The patient now tells me initially that what comes out are pellets and then when I suggested that she was constipated, she stated she does not believe that she is constipated because that she has long and lumberjack like stools and she feels her symptoms are not driven by the constipation and there must be something else.The patient states she underwent surgery last year for prolapse. It appears that her prolapse was likely a cystocele. She also tells me that she was told she had rectal prolapse as well, She is not quite clear, but she is followed in the [facility] and urogyn. She is having surgery again on February 2022. The patient says she does experience reflux symptoms especially when she is bloated. She was crying on and off for much of the visit because she is understandably very affected by her symptoms. She is also working with product development worker to help her figure out what foods she can eat. From what she tells me her that is quite heavy in vegetables, that she mostly eats purees.She did have a colonoscopy by Dr. Coleman for colon cancer screening purposes in March of 2019 and she was found to have a very redundant colon and her prep was fair. Four polyps were removed from the ascending colon, which on histopathology were consistent with 1 tubular adenoma and rest of them were normal colon tissue. She underwent another colonoscopy by Dr. Garcia in March of 2020. At this time, she said she did very extended prep and her prep appeared better at this time around, and she was found to have 1 tubular adenoma in the cecum and an inflammatory polyp at the hepatic flexure. There was an evidence of colitis.After I had a VV on 11/18/21, we discussed doing a breath test. She completed the glucose breath test, which was positive but soon after developed severe epigastric abdominal that sent her to the ER and was diagnosed with pancreatitis. She also had vaginal yeast infection and vaginosis, which she was treated with two tablets of what sounds like fluconazole. She has not completed the fructose and lactose breath test as she is worried it would cause pancreatitis. Overall, she is feeling better now actually. She is eating small frequent meals and low fat. If she eats large meal, she develops reflux. GI Symptoms or Concerns This was a virtual visit with Ms. Mirtha Mckeon. She consented to proceed with a virtual visit. She was at home for the visit. 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 The patient has been suffering from several GI symptoms since her 20s. 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 At that time, she underwent evaluation through our clinic with an upper endoscopy and colonoscopy. Colonoscopy was endoscopically normal but random colon biopsies were positive for collagenous colitis. She apparently did not respond the Pepto-Bismol at that time. Upper endoscopy at that time was overall unremarkable other than a benign gastric polyp that was removed. Gastric biopsies showed nonspecific chronic inflammation. Duodenal biopsies showed increased intraepithelial lymphocytosis consistent with a Samuels 1 lesion. It was felt that this was consistent with celiac disease and she began a carbohydrate-free and gluten-free diet. On this diet, her diarrhea resolved. When she was last seen in clinic in February 2013, she had more issues with constipation and daily MiraLax was recommended.Patient reports that she continues to follow the same, strictly gluten free and carbohydrate free diet but over the last eight months, she has been experiencing progressively worsening diarrhea. Initially, this was more intermittent but now has become more persistent. There is associated nausea and lower abdominal cramping and increased intraabdominal bloating. She states her symptoms usually correlate with eating although at times certain foods that she previously was able to eat now cause diarrhea. Over the last year, she has been pureeing her food to help with the issues with constipation but eating more solid food has not helped. She says if she does not eat any food, she will usually have one mushy stool a day. If she does consume which usually will have three to four soft, worm like stools per day. She denies any associated rectal bleeding, or unintentional weight loss. She denies any recent antibiotic use, foreign travel, or sick contacts. She has not had celiac serology testing through our clinic.She has a son that has diagnosed with Crohn's disease and follows a similar diet to her without any issues. She has been having low back pain and recently had an x-ray and reports there is concerns for osteoporosis.She is very tearful today in regards to her symptoms as she feels that the foods that she is eating is somehow causing her to feel poorly. She has been not been able to pinpoint any specific foods that are triggering her symptoms. Functional Status Date Functional Assessmen t No Information Instructions Date Instruction Additional Infor wilma Continue gluten free and low fodmaps diet as tolerated-Continue Miralax 1-3 capfuls daily (ok to adjust dose as needed)-Continue Magnesium supplement 1-4/day-Call with questions or concerns [phone]. F/up as needed Related to Chronic constipation -Continue gluten yenifer e low fodmaps diet as tolerated-Continue Miralax 1-3 capfuls daily (ok to adjust dose as needed)-Continue Magnesium supplement 1-4/day-Follow up with anvil seating press operator as planned re: recent surgery-Start Rifaximin for SIBO, 550mg three times daily for 14 days. If not covered, let us know and we could try an alternative medication-Call with questions or concerns [phone]. 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 I encourage you t o pursue medical treatment of your SIBO and possibly colitis if felt appropriate. Since you are needing to puree most of your food and are very limited in the textures of what you can eat, it appears that you may be in an IBD flare. A [facility] provider should be able to offer you some options from a medication standpoint if available to treat both these conditions. 2. In the meantime, from a dietary standpoint, continue to puree your food as needed to keep you comfortable. Eat as wide of a variety as you are able to tolerate and consider taking a multivitamin if you are not already doing so. This will help to meet your nutritional needs since your diet is so limited. 3. Feel free to make a few swaps in your diet for lower fodmap options in forms you can tolerate (blended, well cooked, etc.) to see if this may help symptoms. Your diet does not appear overly high fodmaps but even a few changes may help control symptoms while you are seeking further medical treatment. 4. Refer to the last page of the low fodmap handout that I sent you to find links to websites, etc. that may provide some help in the way of recipes, meal ideas etc. 5. Feel free to make a follow up appointment with me at any point as needed or send questions/concerns through the patient portal. 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 We will do breath test to evaluate for small intestinal bacterial overgrowth.2. We will do Sitz marker study to evaluate for her colon motility.3. I encouraged her to go [facility] for further recommendation as her surgery actually was held.4. The patient will follow up here in about 3 months after these tests are performed. Related to Bloating Colon Cancer Prevention Related to Colorectal polyps Colon Polyps Related to Color ectal polyps Colon Cancer Prevention Related to Colorectal polyps Colon Polyps Related to Color ectal polyps Patient will undergo an abdominal x-ray to evaluate for constipation. If this is consistent with constipation, a colonoscopy prep with MiraLax and Gatorade followed by daily Miralax may be helpful. I ordered a CBC, CMP, and celiac serology testing. If there is an elevated TTG, IgA antibody, patient may be ingesting gluten unknowingly and this could be triggering her symptoms. If testing is negative, we will treat her for collagenous colitis with budesonide 9 mg daily for six weeks with the two week taper. She will followup in clinic in two months or sooner if needed. Related to Diarrhea Abdomen X-ray; Limit ed (AP view only) (KUB) Related to Diarrhea Assessments Type Assessment Date assessment Pancreas cyst Patient Care Teams Name Effective Dates (start - stop) Status Members No Information
--- OUTSIDE RECORDS SUMMARY | 2023-05-26 07:08 | XMS_ITS | Continuity of Care Document ---
Author Organization [facility] Address [address] [address] [place] [address] Phone Care Team Providers Care Steam Table Worker Name Role Phone Jim Shaw MD [...] Available - Active Flonase 50 mcg/Actuation Nasal Boyce Inhale two times via nostril daily - [...] Diagnoses Date Provider Providers Copied on Encounter [facility] JEOVANNY, [address] [address], [place], [id number], [place] tel:[phone] [facility] Pancreas cyst 4 Colin MENDIETA [facility]. [address] [facility] [address], [facility] [address], [place], [place], [id number], [place]. tel:[phone] Established Level 4 [facility] JEOVANNY, [address] [address], [place], [id number], [place] tel:[phone] [facility] GI Symptoms or Concerns (chief complaint) Chronic constipationS mall intestinal bacterial overgrowth (SIBO)Bloatin g 3 No Information Referring Provider: Referral Self, USE FOR SELF REFERRALS. [facility], [address] [address], [place], [id number], [place] tel:[phone] [facility] Pancreas cyst 3 Colin Fernandez. [address] [facility] [address], [address], [id number], [place]. tel:[phone] Offic/outpt E&m Estab Low-mod [facility], [address] [address], [place], [id number], [place] tel:[phone] [facility] GI Symptoms or Concerns (chief complaint) Small intestinal bacterial overgrowth (SIBO)Celiac diseasePolyp of colon, unspecified part of colon, unspecified type 3 Padilla Terrazas. [address] [place] [address], [id number], [place]. tel:[phone] Referring Provider: Referral Self, USE FOR SELF REFERRALS. [facility] JEOVANNY, [address] [address], [place], [id number], [place] tel:[phone] [facility] GI Symptoms or Concerns (chief complaint) Small intestinal bacterial overgrowth (SIBO)Dietary counseling and surveillance 3 Meng Bailon. [address], [id number], [place]. tel:[phone] Referring Provider: Referral Self, USE FOR SELF REFERRALS. Established Level 4 [facility] JEOVANNY, [address] [address], [place], [id number], [place] tel:[phone] [facility] GI Symptoms or Concerns (chief complaint) Glucose intoleranceBl oatingHistory of pancreatitis 2 Aman Castillo. [address] [facility] [address], [address], [id number], [place]. tel:[phone] Referring Provider: Referral Self, USE FOR SELF REFERRALS. [facility] JEOVANNY, [address] [address], [place], [id number], [place] tel:[phone] [facility] No Information 2 Aman Castillo. [address] [facility] [address], [place] [address] [address], [place], [place], [id number], [place]. tel:[phone] [facility], [address] [address], [place], [id number], [place] tel:[phone] [facility] Pancreas cyst 2 Colin Fernandez. [address] [facility] [address], [facility] [address], [place], [id number], [place]. tel:[phone] [facility] JEOVANNY, [address] [address], [place], [place], [id number], [place] tel:[phone] [facility] Abdominal distension (gaseous) 2 Aman Castillo. [address] [facility] [address], [address], [id number], [place]. tel:[phone] Referring Provider: Referral Self, USE FOR SELF REFERRALS. [facility] JEOVANNY, [address] [address], [place], [place], [id number], [place] tel:[phone] [facility] Abdominal distension (gaseous) 2 Aman Castillo. [address] [facility] [address], [facility] [address], [place], [place], [id number], [place]. tel:[phone] Referring Provider: Referral Self, USE FOR SELF REFERRALS. Offic/outpt E&m Estab Mod-hi 4 [facility] JEOVANNY, [address] [address], [place] [place], [id number], [place] tel:[phone] [facility] GI Symptoms or Concerns (chief complaint) BloatingChron ic constipationF emale cystoceleHist ory of pancreatitis 2 Aman Castillo. [address] [facility] [address], [facility] [address], [place], [place], [id number], [place]. tel:[phone] Referring Provider: Leidy NIETO, [address], [place], [address]. tel:[phone] [facility], [address] [address], [place], [id number], [place] tel:[phone] [facility] Abdominal distension (gaseous) Nov-0 2 Aman Castillo. [address] [facility] [address], [facility] [address], [place], [place], [id number], [place]. tel:[phone] Referring Provider: Jonathan Sutton, [address] [address], [place], [address] . tel:[phone] Established Level 5 [facility], [address] [address], [place], [id number], [place] tel:[phone] [facility] GI Symptoms or Concerns (chief complaint) BloatingAbdom inal pain in femaleChronic constipationF emale cystocele 2 Aman Castillo. [address] [facility] [address], [address], [id number], [place]. tel:[phone] Referring Provider: Referral Self, USE FOR SELF REFERRALS. [facility], [address] [address], [place], [id number], [place] tel:[phone] [facility] No Information 2 Reagan Wang. [address] [facility] [address], [place] [address], [place], [place], [id number], [place]. tel:[phone] [facility], [address] [address], [place], [id number], [place] tel:[phone] [facility] Colorectal polypsOther fecal abnormalities Personal history of colonic polypsBenign neoplasm of cecumBenign neoplasm of cecum 1 Jose Harkins. [address] [facility] [address], [facility] [address], [place], [place], [id number], [place]. tel:[phone] Referring Provider: Leidy Saucedo PAC, [address], [place], [address]. tel:[phone] [facility], [address] [address], [place], [id number], [place] tel:[phone] [facility] No Information 1 Harpreet Kang. [address] [facility] [address], [facility] [address], [place], [place], [id number], [place]. tel:[phone] [facility], [address] [address], [place], [id number], [place] tel:[phone] [facility] Screening ColonoscopyCo lorectal polypsBenign neoplasm of ascending colonEncounte r for screening for malignant neoplasm of colonBenign neoplasm of ascending colon 0 Virginia Toledo. [address] [facility] [address], [facility] [address], [place], [id number], [place]. tel:[phone] Referring Provider: Referral Self, USE FOR SELF REFERRALS. [facility] JEOVANNY, [address] [address], [place], [id number], [place] tel:[phone] [facility] No Information 9 Harpreet Kang. [address] [facility] [address], [facility] [address], [place], [address], [place]. tel:[phone] Offic/outpt E&m Estab Mod-hi 2 [facility], [address] [address], [place], [id number], [place] tel:[phone] [facility] GI Symptoms or Concerns (chief complaint) DiarrheaCelia c Sprue/nontrop icalMicroscop ic colitis 5 Edstrom JEOVANNY Riley. [address] [facility] [address], [facility] [address], [place], [place], [id number], [place]. tel:[phone] Referring Provider: Referral Self, USE FOR SELF REFERRALS. Offic Cons New/estab Mod [facility], [address] [address], [place], [id number], [place] tel:[phone] [facility] Celiac Sprue/nontrop icalConstipat ion Unspecified 3 Saul Geiger. [address] [facility] [address], [facility] [address], [place], [place], [id number], [place]. tel:[phone] Referring Provider: Paris Hammer, [address], [place], [address]. tel:[phone] Offic/outpt E&m Estab Low-mod [facility], [address] [address], [place], [place], [address], [place] tel:[phone] [facility] Collagenous Colitis (chief complaint)fe els good on a low fiber diet (chief complaint) Colitis Unspecified/I BDColitis Unspecified/I BDDiarrheaCel iac Sprue/nontrop ical 7-201 0 No Information [facility] JEOVANNY, [address] [address], [place], [place], [id number], [place] tel:[phone] [facility] Celiac Sprue/nontrop icalGastritis W/o BleedPolyp-in jp/rect/stom -unc BehColitis Unspecified/I BDGastritis W/o BleedCeliac Sprue/nontrop icalDiarrhea 6-201 0 Saul Geiger. [address] [facility] [address], [facility] [address], [place], [place], [id number], [place]. tel:[phone] Offic Cons New/estab Mod-hi 60 [facility] JEOVANNY, [address] [address], [place], [place], [id number], [place] tel:[phone] [facility] Celiac Sprue (chief complaint) Celiac Sprue/nontrop ical 9200 9 Moisés Tyler. [address] [facility] [address], [place] [address], [place], [place], [address], [place]. tel:[phone] Family History Family Member Type Diagnosis Age [...] Registry Payers Payer name Insurance type Covered democrat ID Sampson dutta(s) Jordana CHAVARRIA [id number] Social History Type Description Quantity Date Captured [...] loose stools that are described as floating Cheshire type 5 and 6. She verbalizes concern [...] has been seen by multiple providers at [facility]. This is the 1st time I am [...] episode of pancreatitis that required admission at [facility] for pancreatitis. The patient has been [...] it based on the colonoscopies performed at [facility] and there was no mention of anastomosis.The [...] her symptoms. She is also working with shirt bander to help her figure out what foods [...] floor dyssynergia and also recent admission at [facility] for pancreatitis. The patient has been [...] it based on the colonoscopies performed at [facility] and there was no mention of anastomosis.The [...] her symptoms. She is also working with shirt bander to help her figure out what foods [...] it based on the colonoscopies performed at [facility] and there was no mention of anastomosis.The [...] Magnesium supplement 1-4/day-Call with questions or concerns [phone]. F/up as needed Related to Chronic constipation -Continue gluten yenifer e low fodmaps diet as tolerated-Continue Miralax 1-3 capfuls daily (ok to adjust dose as needed)-Continue Magnesium supplement 1-4/day-Follow up with epic manager as planned re: recent surgery-Start Rifaximin for SIBO, 550mg three times daily for 14 days. If not covered, let us know and we could try an alternative medication-Call with questions or concerns [phone]. F/up in 2 months Related to Small [...] tests are performed. Related to Bloating Colon Polyps Related to Color ectal polyps Colon Cancer Prevention Related to Colorectal polyps Colon Polyps Related to Color ectal polyps Colon Cancer Prevention Related to Colorectal polyps Patient will undergo an abdominal x-ray [...]
--- OUTSIDE RECORDS SUMMARY | 2024-11-20 03:17 | XMS_ITS | CCD ---
Author Name Interface, [id number] lity Address [facility] [place] [id number] [facility] Address [facility] [place] [address] Reason for Visit Social History Date Name Value Sex Female
--- OUTSIDE RECORDS SUMMARY | 2024-11-20 03:17 | XMS_ITS | Encounter Summary ---
Author Organization [facility] Address [address] [place] [address] Care Team Providers Care Logging Crew Supervisor Name Role Phone Fauzia Quinn MD Primary Care Provider [phone]- [phone] Encounter Details Date Type Department Care Team (Late st Contact Info) Description 05/08/1995 Notes/Orders RG-Family Practice [address] [place] [address] Med Rosenthal MD [address] [place] [address] Social History Tobacco Use Types Packs/Day Years Used Date Smoking Tobacco: Never Assessed Comments Unknown Sex and Gender Information Value Date Recorded Sex Assigned at Not on file Legal Sex Female 4:01 AM CDT Gender Identity Not on file Sexual Orientation Not on file documented as of this encounter Plan of Treatment Not on file documented as of this encounter Visit Diagnoses Not on filedocumented in this encounter Care Teams Logging Crew Supervisor Relationship Specialty [place] [address] [place] [address] PCP - General 10/19/06 documented as of this encounter
--- OUTSIDE RECORDS SUMMARY | 2024-11-20 03:17 | XMS_ITS | Encounter Summary ---
Author Organization [facility] Address [address] [place] [address] Care Team Providers Care Cutter Grinder Name Role Phone Fauzia Quinn MD Primary Care Provider [phone]- [phone] Encounter Details Date Type Department Care Team [...] on filedocumented in this encounter Care Teams Cutter Grinder Relationship Specialty [place] [address] [place] [address] PCP - General 10/19/06 documented as of this encounter
--- OUTSIDE RECORDS SUMMARY | 2024-11-20 03:17 | XMS_ITS | Encounter Summary ---
Author Organization [facility] Address [address] [place] [address] Care Team Providers Care Chief Deputy Court Clerk Name Role Phone Fauzia Quinn MD Primary Care Provider [phone]- [phone] Encounter Details Date Type Department Care Team (Latest Contact Info) Description 12/13/1994 Notes/Orders Scott Sierra MD [address] [place] [address] Social History Tobacco Use Types Packs/Day Years [...] on filedocumented in this encounter Care Teams Chief Deputy Court Clerk Relationship Specialty Start [place] [address] [place] [address] PCP - General 10/19/06 documented as of this encounter
--- OUTSIDE RECORDS SUMMARY | 2024-11-20 03:17 | XMS_ITS | Encounter Summary ---
Author Organization [facility] Address [address] [place] [address] Care Team Providers Care Furnace Operator Name Role Phone Fauzia Quinn MD Primary Care Provider +1- [phone] Encounter Details Date Type Department Care Team [...] on filedocumented in this encounter Care Teams Furnace Operator Relationship Specialty [place] [address] [place] [address] PCP - General 10/19/06 documented as of this encounter
--- OUTSIDE RECORDS SUMMARY | 2024-11-20 03:17 | XMS_ITS | Encounter Summary ---
Author Organization [facility] Address [address] [place] [address] Care Team Providers Care Visual Merchandising Manager Name Role Phone Fauzia Quinn MD Primary Care Provider +1- [phone] Encounter Details Date Type Department Care Team (Late st Contact Info) Description 11/08/1993 Notes/Orders [facility] [address] [place] [address] Med Rosenthal MD [address] [place] [address] Social History Tobacco Use Types Packs/Day Years [...] on filedocumented in this encounter Care Teams Visual Merchandising Manager Relationship Specialty [place] [address] [place] [address] PCP - General 10/19/06 documented as of this encounter
--- OUTSIDE RECORDS SUMMARY | 2024-11-20 03:17 | XMS_ITS | Encounter Summary ---
Author Organization [facility] Address [address] [place] [address] Care Team Providers Care White Washer Name Role Phone Fauzia Quinn MD Primary Care Provider +1- [phone] Encounter Details Date Type Department Care Team [...] on filedocumented in this encounter Care Teams White Washer Relationship Specialty [place] [address] [place] [address] PCP - General 10/19/06 documented as of this encounter
--- OUTSIDE RECORDS SUMMARY | 2024-11-20 03:17 | XMS_ITS | Encounter Summary ---
Author Organization [facility] Address [address] [place] [address] Care Team Providers Care Multi Operation Forming Machine Setter Name Role Phone Fauzia Quinn MD Primary Care Provider +1- [phone] Encounter Details Date Type Department Care Team (Late st Contact Info) Description 09/06/1995 Notes/Orders [facility]-Family Practice [address] [place] [address] Med Rosenthal MD [address] [place] [address] Social History Tobacco Use Types Packs/Day Years [...] on filedocumented in this encounter Care Teams Multi Operation Forming Machine Setter Relationship Specialty [place] [address] [place] [address] PCP - General 10/19/06 documented as of this encounter
--- OUTSIDE RECORDS SUMMARY | 2024-11-20 03:17 | XMS_ITS | Encounter Summary ---
Author Organization [facility] Address [address] [place] [address] Care Team Providers Care Vision Care Associate Name Role Phone Fauzia Quinn MD Primary Care Provider +1 [phone] Encounter Details Date Type Department Care Team (Late st Contact Info) Description 09/06/2002 Hospital External to Nilesh Nino MD [address] [place], [place] [address] [facility] Obstetric Admission Social History Tobacco Use Types Packs/Day Years Used Date Smoking Tobacco: Never Alcohol Use Standard Drinks/Week Comments No 0 (1 standard drink = 0.6 oz pur e alcohol) Comments No Sex and Gender Information Value Date Recorded Sex Assigned at Not on file Legal Sex Female 4:01 AM CDT Gender Identity Not on file Sexual Orientation Not on file 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
--- OUTSIDE RECORDS SUMMARY | 2024-11-20 03:17 | XMS_ITS | Encounter Summary ---
Author Organization [facility] Address [address] [place] [address] Care Team Providers Care Filler Leaf Cutter Long Name Role Phone Fauzia Quinn MD Primary Care Provider Encounter Details Date Type Department Care Team (Latest Contact Info) Description 08/16/1994 Notes/Orders Isaak Sweeney [place], [place] Social History Tobacco Use Types Packs/Day [...] on filedocumented in this encounter Care Teams Filler Leaf Cutter Long Relationship Specialty [place] [address] [place] [address] PCP - General 10/19/06 documented as of this encounter
--- OUTSIDE RECORDS SUMMARY | 2024-11-20 03:17 | XMS_ITS | Encounter Summary ---
Author Organization [facility] Address [address] [place] [address] Care Team Providers Care Air Conditioning Unit Assembler Name Role Phone Fauzia Quinn MD Primary Care Provider +1- [phone] Encounter Details Date Type Department Care Team [...] on filedocumented in this encounter Care Teams Air Conditioning Unit Assembler Relationship Specialty [place] [address] [place] [address] PCP - General 10/19/06 documented as of this encounter
--- OUTSIDE RECORDS SUMMARY | 2024-11-20 03:17 | XMS_ITS | Encounter Summary ---
Author Organization [facility] Address [address] [place] [address] Care Team Providers Care Priming Machine Operator Name Role Phone Fauzia Quinn MD Primary Care Provider +1- [phone] Encounter Details Date Type Department Care Team [...] on filedocumented in this encounter Care Teams Priming Machine Operator Relationship Specialty [place] [address] [place] [address] PCP - General 10/19/06 documented as of this encounter
--- OUTSIDE RECORDS SUMMARY | 2024-11-20 03:17 | XMS_ITS | Encounter Summary ---
Author Organization [facility] Address [address] [place] [address] Care Team Providers Care Faculty Neuropsychologist Name Role Phone Fauzia Quinn MD Primary Care Provider +1- [phone] Encounter Details Date Type Department Care Team (Latest Contact Info) Description 12/11/1996 Notes/Orders Lesley De Leon, AIRLINE COUNTER AGENT, WHEY DEPARTMENT OPERATOR [address] [place] [address] Social History Tobacco Use Types Packs/Day Years [...] on filedocumented in this encounter Care Teams Faculty Neuropsychologist Relationship Specialty [place] [address] [place] [address] PCP - General 10/19/06 documented as of this encounter
--- OUTSIDE RECORDS SUMMARY | 2024-11-20 03:17 | XMS_ITS | Encounter Summary ---
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
--- OUTSIDE RECORDS SUMMARY | 2024-11-20 03:17 | XMS_ITS | Encounter Summary ---
Author Organization [facility] Address [address] [place] [address] Care Team Providers Care Meat Curer Name Role Phone Fauzia Quinn MD Primary Care Provider +1- [phone] Encounter Details Date Type Department Care Team (Latest Contact Info) Description 03/09/1995 Notes/Orders Scott Sierra MD [address] [place] [address] Social History Tobacco Use Types Packs/Day Years [...] on filedocumented in this encounter Care Teams Meat Curer Relationship Specialty [place] [address] [place] [address] PCP - General 10/19/06 documented as of this encounter
--- OUTSIDE RECORDS SUMMARY | 2024-11-20 03:17 | XMS_ITS | Encounter Summary ---
Author Organization [facility] Address [address] [place] [address] Care Team Providers Care Cap Maker Name Role Phone Fauzia Quinn MD Primary Care Provider +1- [phone] Encounter Details Date Type Department Care Team [...] on filedocumented in this encounter Care Teams Cap Maker Relationship Specialty [place] [address] [place] [address] PCP - General 10/19/06 documented as of this encounter
--- OUTSIDE RECORDS SUMMARY | 2024-11-20 03:17 | XMS_ITS | Encounter Summary ---
Author Organization [facility] [place] Address [address] [place] [address] Care Team Providers Care Audit Analyst Name Role Phone Fauzia Quinn MD Primary Care Provider +1- [phone] Encounter Details Date Type Department Care Team [...] on filedocumented in this encounter Care Teams Audit Analyst Relationship Specialty [place] [address] [place] [address] PCP - General 10/19/06 documented as of this encounter
--- OUTSIDE RECORDS SUMMARY | 2024-11-20 03:17 | XMS_ITS | Encounter Summary ---
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
--- OUTSIDE RECORDS SUMMARY | 2024-11-20 03:17 | XMS_ITS | Encounter Summary ---
Author Organization [facility] Address [address] [place] [address] Care Team Providers Care Human Services Care Specialist Name Role Phone Fauzia Quinn MD Primary Care Provider +1- [phone] Encounter Details Date Type Department Care Team [...] on filedocumented in this encounter Care Teams Human Services Care Specialist Relationship Specialty [place] [address] [place] [address] PCP - General 10/19/06 documented as of this encounter
--- OUTSIDE RECORDS SUMMARY | 2024-11-20 03:17 | XMS_ITS | Clinical Summary ---
Author Organization [facility] Address [address] [place] [address] Care Team Providers Care Patient Safety Coordinator Name Role Phone Fauzia Benito MD Primary Care Provider +1 [phone] Source Comments You are receiving this document as you are listed as the primary care provider,follow-up provider, or the patient has been referred to you for consultation.This is in compliance with the Medicare and[facility] Campus[facility] EHR Incentive Program,which states Providers who transition their patient to another setting of careor provider of care or refers their patient to another provider of care shouldprovide summary care record for each transition of care or referral. 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 (HRC) 1 or 2 puffs by mouth twice daily as needed for asthma 07/02/19 06 Active ZADITOR 0.025 % OP SOLNIndications:Ot her chronic allergic conjunctivitis 1 drop to both eyes twice daily for allergic conjunctivis 3 bottles prn 07/02/19 06 Active FLONASE 50 MCG/ACT NA SUSPIndications:Al lergic rhinitis due to other allergen 1 spray each nostril twice daily for rhinitis 3 month prn 07/02/19 06 Active DESONIDE 0.05 % EX CREAIndications:Co ntact dermatitis and other eczema, due to unspecified cause Apply to facial rash daily as needed 60g prn 07/02/19 06 Active CLARITIN OR None Entered Activ e PULMICORT IN None Entered Acti ve ELIDEL 1 % EX CREA twice daily Active NEOMYCIN-POLYMYXIN -DEXAMETH OP None Entered Acti ve levothyroxine (SYNTHROID) 50 MCG tabletIndications: Hypothyroidism, unspecified type (HRC) 1 tab in the morning, on empty stomach only with water, half an hour before breakfast. 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 Not on file Not on file Last Filed Vital Signs Vital Sign Reading Time Taken Comments Blood Pressure 100/64 10/24/2006 11:00 AM CDT Pulse 74 10/24/2006 11:00 AM CDT Temperature 36.6 C (97.8 F) 07/01/2005 10:20 AM CDT Respiratory Rate 20 10/24/2006 11:00 AM CDT Oxygen Saturation - - Inhaled Oxygen Concentration - - Weight 64.5 kg (142 lb 3.2 oz) 10/24/2006 11:00 AM CDT Height 169.5 cm (5' 6.75) 10/24/2006 11:00 AM C DT Body Mass Index 22.44 10/24/2006 11:00 AM CDT Plan of Treatment Health Maintenance Due Date Last Done Comments Colon Cancer Screening Plan Due 1965 HepB Vaccine (1) 1984 10/17/1989, , 04/19/1989 Pneumococcal Vaccine 50+ Yrs (1 of 2 - PCV) 1984 Cervical Cancer Screening Due 10/25/2006 10/24/2006, 07/01/2005, 12/29/2003, Additional history exists Adult Preventive Visit 10/25/2007 7, 11/26/2001, 08/16/2000, Additional history exists Cholesterol 10/20/2011 10/19/2006, 08/2003, 11/27/2001, Additional history exists Mammogram 01/11/2013 01/12/2012 COVID-19 Vaccine (2 - season) 2023 06/30/2020 Influenza Vaccine (#1) 2024 0, 12/25/2018, 12/25/2017, Additional history exists DTaP/Tdap/Td Vaccine (3 - Tdap) 04/05/2027 04/05/2017, 11/12/2007, 08/16/2000, Additional history exists HIV Screening (Preventive Services) Completed 02/05/2002, 10/28/1998, 05/13/1998, Additional history exists Hep C Screening (Preventive Services) Completed 02/05/2002 Zoster/Shingles Vaccine Completed 11/01/2018, 07/31 HepA Vaccine Aged Out No longer eligi ble based on patient's age to complete this topic Hib Vaccine Aged Out No longer eligi ble based on patient's age to complete this topic IPV (Polio) Vaccine Aged Out No longe r eligible based on patient's age to complete this topic MCV4 Vaccine Aged Out No longer eligi ble based on patient's age to complete this topic Meningococcal B Vaccine Aged Out No l onger eligible based on patient's age to complete this topic Procedures Procedure Name Priority Date/Time Associated Diagnosis Comments PAP TEST, ROUTINE Routine 10/24/2006 11: 00 AM CDT Screening for Malignant Neoplasm of the Cervix LIPID PANEL, FAST > 12 HOUR Routine 10/19/2006 8:32 AM CDT Routine General Medical Examination at [facility] HIV ANTIBODY Routine 02/05/2002 1:05 PM DIRECTOR ADVERTISING HEPATITIS C ANTIBODY, WITH REFLEX (ANTI-HCV) Routine 02/05/2002 1:05 PM DIRECTOR ADVERTISING from Last 3 Months or Most Recently Relevant to Health Maintenance Results * PAP TEST, ROUTINE (10/24/2006 11:00 AM CDT) Cytology, Pap (NOTE) Real Estate Office Supervisor Cytology Report Patient Name: MIRTHA MCKEON Taken: 10/24/2006 Received: 10/25/2006 Reported: 11/02/2006 Physician(s): FAUZIA BENITO ([id number]) Source of Specimen Liquid routine Pap, cervical/endocervi dinah: Specimen Adequacy Satisfactory for evaluation. Endocervical component present. Final Cytologic Interpretation/Res ult NEGATIVE FOR INTRAEPITHELIAL LESION OR MALIGNANCY (NILM) quan/11/02/2006 Electronically Signed Out By RIZWANA Lee (ASCP) RIZWANA Lee (ASCP) Pap Smear History Date of Last Menstrual Period: 10/08/06 Contraceptive History: Not Stated/Unknown Other Clinical Conditions: LAST PAP: Normal HPV reflex testing requested with interpretation of ASCUS [facility] 10/24/2006 11:0 0 AM CDT 10/25/2006 9:09 AM CDT us Fauzia Benito MD LAB_1 Final Resul t Performing Organization Address [facility] Co de Phone Number [address] [phone] * CHOLESTEROL LIPID PANEL FAST >12HR (10/19/2006 8:32 AM CDT) [facility] Cholesterol 179 <200 mg/dl [facility] Triglyceride 76 <200 mg/dl [facility] HDL 52 >35 mg/dl [facility] LDL, Calc. 112 mg/dl [facility] Hours Fasting 12 hours [facility] 10/19/2006 8:32 AM CDT 10/19/2006 8:33 AM CDT us Fauzia Benito MD LAB_1 Final Resul t Performing Organization Address [facility] de Phone Number [address] [phone] * HEPATITIS C AB (02/05/2002 1:05 PM DIRECTOR ADVERTISING) Pathologist [facility] Anti-HCV Non-Reactive Does Not Rule Out Infection with HCV NR [facility] 02/05/2002 1:05 PM DIRECTOR ADVERTISING 02/05/2002 1:06 PM DIRECTOR ADVERTISING us Nilesh Nino MD LAB_1 Final Result Performing Organization Address [facility] Co de Phone Number [facility] [address] [place] [phone] * HIV 1/2 ANTIBODY (02/05/2002 1:05 PM DIRECTOR ADVERTISING) HIV 1/2 Antibody Non-Reacti ve [facility] 02/05/2002 1:05 PM DIRECTOR ADVERTISING 02/05/2002 1:06 PM DIRECTOR ADVERTISING us Nilesh Nino MD LAB_1 Final Result [facility] [address] [place] [phone] from Last 3 Months or Most Recently Relevant to Health Maintenance Insurance [employer] Care Teams Patient Safety Coordinator Relationship Specialty [place] [address] [place] [address] PCP - General 10/19/06
--- OUTSIDE RECORDS SUMMARY | 2024-11-20 03:17 | XMS_ITS | Encounter Summary ---
Author Organization [facility] Address [address] [place] [address] Care Team Providers Care Director Of Event Marketing Name Role Phone Fauzia Quinn MD Primary Care Provider [phone]- [phone] Encounter Details Date Type Department Care Team [...] on filedocumented in this encounter Care Teams Director Of Event Marketing Relationship Specialty [place] [address] [place] [address] PCP - General 10/19/06 documented as of this encounter
--- OUTSIDE RECORDS SUMMARY | 2024-11-20 03:17 | XMS_ITS | Encounter Summary ---
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
--- OUTSIDE RECORDS SUMMARY | 2024-11-20 03:17 | XMS_ITS | Clinical Summary ---
Author Organization [facility] Address [address] [place] [address] Care Team Providers Care Can Filling Machine Operator Name Role Phone Unavailable Primary Care Provider Unavailabl e Source Comments Patient records contain information from all sites at [facility]. For routine questions regarding patient records, call [phone] during business hours, M-F 8:00 AM - 5:00 PM Central Time. Record requests for emergency care only can be directed to [phone] at any time.[facility] Medications levothyroxine (SYNTHROID, LEVOTHROID) 50 mcg tablet Take 1 tablet (50 mcg total) by mouth every morning before breakfast. 90 tablet 3 3 Active zafirlukast (ACCOLATE) 20 mg tablet Take 1 tablet (20 mg total) by mouth 2 (two) times a day before breakfast and dinner. 180 tablet 3 3 Active Active Problems Problem Noted Date Diagnosed Date Chronic Kidney Disease Stage 2 Glomerular Filtration Rate 60 To 89 11/22/2022 Hypothyroidism Acquired 11/22/2022 Celiac Disease 11/22/2022 Social History Tobacco Use Types Packs/Day Years Used Date Smoking Tobacco: Never Assessed Comments Unknown Sex and Gender Information Value Date Recorded Sex Assigned at Not on file Legal Sex Female 1:37 PM EMERGENCY DEPT TECH Gender Identity Not on file Sexual Orientation [...] 1965 Lipid (Cholesterol) Screening 1965 Mammogram 1965 Hepatitis B Vaccines (1 of 3 - 19+ 3-dose series) 1984 10/17/1989, 05/17/1989, 04/19/1989 Pneumococcal vaccine (50+ years) (1 of 1 - PCV) 10/08/2015 Cervical/Vaginal Cancer Screening 04/05/2020 04/05/2017, 10/24/2006 Cologuard 03/16/2023 03/16/2020 Colorectal Cancer Screening 03/16/2023 COVID-19 Vaccine ( season) 2023 12/22/2022, 12/31/2021, 05/28/2021, Additional history exists Fasting Glucose for Diabetes Screening 02/10/2024 02/09/2021, 02/07/2021, 02/05/2021, Additional history exists Depression Screening (Annual PHQ-2) 03/20/2024 Influenza Vaccine (#1) 2024 , 01/01/2021, 12/26/2019, Additional history exists DTaP,Tdap,and Td Vaccines (3 - Td or Tdap) 04/05/2027 04/05/2017, 11/12/2007, 08/16/2000, Additional history exists Zoster Vaccines Completed 11/01/2018, 07/31/2018 IPV Vaccines Aged Out No longer eligi ble based on patient's age to complete this topic Insurance [facility]
--- OUTSIDE RECORDS SUMMARY | 2024-11-20 03:17 | XMS_ITS | Encounter Summary ---
Author Organization [facility] Address [address] [place] [address] Care Team Providers Care Thread Milling Machine Set Up Operator Name Role Phone Fauzia Quinn MD Primary Care Provider [phone]- [phone] Encounter Details Date Type Department Care Team (Latest Contact Info) Description 09/17/1996 Notes/Orders Lesley De Leon, EGG BUYER, SOAP PRESS FEEDER [address] [place] [address] Social History Tobacco Use Types Packs/Day Years [...] on filedocumented in this encounter Care Teams Thread Milling Machine Set Up Operator Relationship Specialty [place] [address] [place] [address] PCP - General 10/19/06 documented as of this encounter
--- OUTSIDE RECORDS SUMMARY | 2024-11-20 03:17 | XMS_ITS | Encounter Summary ---
[facility] Organization [facility] Address [address] [place] [address] Care Team Providers Care Medical Corps Officer Name Role Phone Fauzia Quinn MD Primary Care Provider +1- [phone] Encounter Details Date Type Department Care Team (Latest Contact Info) Description 10/21/1993 Notes/Orders Scott Sierra MD [address] [place] [address] Social History Tobacco Use Types Packs/Day Years [...] on filedocumented in this encounter Care Teams Medical Corps Officer Relationship Specialty [place] [address] [place] [address] PCP - General 10/19/06 documented as of this encounter
--- OUTSIDE RECORDS SUMMARY | 2024-11-20 03:17 | XMS_ITS | Clinical Summary ---
Author Organization [facility] Address [address] [place] [address] Care Team Providers Care Industrial Designer Name Role Phone Leidy Saucdeo PA-C Primary Care Provider [phone] Allergies Active Allergy Reactions Criticality Noted Date Comments Bee Pollen Cough 10/26/2011 Sneezing, Gluten *Unknown 01/11/2022 Medications acetaminophen (TYLENOL) 325 mg tablet Take 325-650 mg by mouth. Active albuterol HFA (PRO-AIR; VENTOLIN; PROVENTIL) 90 mcg/actuation inhaler Inhale 1-2 Puffs by mouth. Active apixaban (ELIQUIS) 2.5 mg tablet Take 2.5 mg by mouth. 02/10/2021 Active budesonide (PULMICORT) 180 mcg/actuation inhaler Inhale 1 Puff by mouth. Active carboxymethylcel lulose 0.5% 0.5 % drop ophthalmic drops Place [...] at Not on file Legal Sex Female 7:07 AM PUMP STATION OPERATOR Gender Identity Not on file Sexual Orientation Not on file Obstetrics History Last Filed Vital Signs Vital Sign Reading Time Taken Comments Blood Pressure 127/59 01/13/2022 12:45 PM CDT Pulse 58 01/13/2022 12:45 PM CDT Temperature 36.6 C (97.8 F) 01/13/2022 12:00 PM CDT Respiratory Rate 17 01/13/2022 12:45 PM CDT Oxygen Saturation 98% 01/13/2022 12:45 PM CDT Inhaled Oxygen Concentration - - Weight 64 kg (141 lb) 01/11/2022 9:11 AM CDT Height 167.6 cm (5' 6) 01/11/2022 9:11 AM CDT Body Mass Index 22.76 01/11/2022 9:11 AM CDT Plan of Treatment Health Maintenance Due Date Last Done Comments Tetanus booster 1976 Depression screening for age 12+ 1977 HIV for age 15-65 1980 BMI (ht and wt on same day) for age 18+ 10/08/1983 Hepatitis C screening for ag e 18-79 10/08/1983 Hepatitis B series for 19+ ( 1 of 3 - 19+ 3-dose series) 1984 Colonoscopy through age 75 2010 Lipids for age 45-75 2010 Mammogram for age 45-75 2010 Pneumococcal series for age 50+ (1 of 1 - PCV) 10/08/2015 Zoster (shingles) series for age 50+ (1 of 2) 10/08/2015 Pap test for age 21-65 04/05/2020 8, 04/05/2017, 01/07/2011 COVID-19 vaccine series ( - 2024- season) 2024 12/31/2021, 05/28/2021, 07/21/2020, Additional history exists Influenza Vaccine (#1) 2024 RSV vaccine for adults or (1 - 1-dose 75+ series) 2040 Procedures Procedure Name Priority Date/Time Associated Diagnosis Comments ELECTRICAL PROSPECTOR THIN PREP PAP SCREEN IMAGED Routine 04/05/2017 8:30 AM PUMP STATION OPERATOR from Last 3 Months or Most Recently Relevant to Health Maintenance Results * ELECTRICAL PROSPECTOR THIN PREP PAP SCREEN IMAGED (04/05/2017 8:30 AM PUMP STATION OPERATOR) Case Report Gynecologic Cytology Report Case: [id number] Authorizing Provider: Leidy Saucedo PA-C Collected: 04/05/2017 0830 First Screen: Matthew Elena Received: 04/06/2017 1211 Rescreen: Tanna Oneal Specimen: ELECTRICAL PROSPECTOR ThinPrep Vial Screening, Cervical/Vaginal 04/13/2017 9:28 AM PUMP STATION OPERATOR [facility] INTERPRETATION/ RESULT NEGATIVE FOR INTRAEPITHELIAL LESION OR MALIGNANCY (NIL) (none) 04/13/2017 9:28 AM PUMP STATION OPERATOR [facility] at 0928 PUMP STATION OPERATOR SPECIMEN ADEQUACY Satisfactory for evaluation Endocervical component present 04/13/2017 9:28 AM PUMP STATION OPERATOR [facility] Last Pap Date 02/16/2013 04/13/2017 9:28 AM PUMP STATION OPERATOR [facility] Last Pap Result NIL 8 9:28 AM PUMP STATION OPERATOR [facility] Automated Review Successful 04/13/2017 9:28 AM PUMP STATION OPERATOR [facility] Comment:Specimen processed s uccessfully by automated event management consultant device, ThinPrep Imaging System, [employer] Note The pap test is a screening technique, not a diagnostic procedure. It is used primarily to screen for squamous cancers and precursor lesions. Published studies have shown that it is subject to both false negative and false positive results. The pap test should not be used as the sole means to diagnose or exclude pre-malignant and malignant lesions. Interpreted at [email or web address] (Central Lab, [facility], [facility], [facility], [facility], [facility], [facility]) 04/13/2017 9:28 AM PUMP STATION OPERATOR [facility] ENTRAL LAB[facility] Other (Cervical/Vagina l) 04/05/2017 8:30 AM PUMP STATION OPERATOR 04/06/2017 12:11 PM PUMP STATION OPERATOR Leidy Saucedo PA-C PATHOLOGY/CYTOLOGY Final Resu lt [facility] [address] [place] [address], [place] from Last 3 Months or Most Recently Relevant to Health Maintenance Insurance [facility] Care Teams Industrial Designer Relationship Specialty Start Date End Date Leidy Saucedo PA-C [address] [place] [address] PCP - General Physician Concrete Rubber 01/03/22
--- OUTSIDE RECORDS SUMMARY | 2024-11-20 03:17 | XMS_ITS | Encounter Summary ---
Author Organization [facility] Address [address] [place] [address] Care Team Providers Care Audio Video Technician Name Role Phone Fauzia Quinn MD Primary Care Provider [phone]- [phone] Encounter Details Date Type Department Care Team [...] on filedocumented in this encounter Care Teams Audio Video Technician Relationship Specialty [place] [address] [place] [address] PCP - General 10/19/06 documented as of this encounter
--- OUTSIDE RECORDS SUMMARY | 2024-11-20 03:17 | XMS_ITS | Encounter Summary ---
Author Organization [facility] Address [address] [place] [address] Care Team Providers Care Geographic Information System Analyst Name Role Phone Fauzia Quinn MD Primary Care Provider [phone] Encounter Details Date Type Department Care Team (Late st Contact Info) Description 09/07/1996 Notes/Orders RG-Family Practice [address] [place] [address] Med Rosenthal MD [address] [place] [address] Social History Tobacco Use Types Packs/Day Years [...] on filedocumented in this encounter Care Teams Geographic Information System Analyst Relationship Specialty [place] [address] [place] [address] PCP - General 10/19/06 documented as of this encounter
--- OUTSIDE RECORDS SUMMARY | 2024-11-20 03:17 | XMS_ITS | Encounter Summary ---
Author Organization [facility] Address [address] [place] [address] Care Team Providers Care Chilling Hood Operator Name Role Phone Fauzia Quinn MD Primary Care Provider [phone]- [phone] Encounter Details Date Type Department Care Team [...] on filedocumented in this encounter Care Teams Chilling Hood Operator Relationship Specialty [place] [address] [place] [address] PCP - General 10/19/06 documented as of this encounter
--- OUTSIDE RECORDS SUMMARY | 2024-11-20 03:17 | XMS_ITS | Encounter Summary ---
Author Organization [facility] Address [address] [place] [address] Care Team Providers Care Fruit Dumper Name Role Phone Fauzia Quinn MD Primary Care Provider [phone]- [phone] Encounter Details Date Type Department Care Team (Latest Contact Info) Description 05/22/1995 Notes/Orders Scott Sierra MD [address] [place] [place] [address] Social History Tobacco Use Types Packs/Day Years [...] on filedocumented in this encounter Care Teams Fruit Dumper Relationship Specialty [place] [address] [place] [address] PCP - General 10/19/06 documented as of this encounter
--- OUTSIDE RECORDS SUMMARY | 2024-11-20 03:17 | XMS_ITS | Encounter Summary ---
Author Organization [facility] Address [address] [place] [address] Care Team Providers Care Dry Cell Sealer Name Role Phone Fauzia Quinn MD Primary Care Provider +1- [phone] Encounter Details Date Type Department Care Team (Latest Contact Info) Description 01/22/1997 Notes/Orders Nilesh Nino MD [address] [place] [address] Social History Tobacco Use Types Packs/Day Years [...] on filedocumented in this encounter Care Teams Dry Cell Sealer Relationship Specialty [place] [address] [place] [address] PCP - General 10/19/06 documented as of this encounter
--- OUTSIDE RECORDS SUMMARY | 2024-11-20 03:17 | XMS_ITS | Encounter Summary ---
Author Organization [facility] Address [address] [place] [address] Care Team Providers Care Air Breaker Operator Name Role Phone Fauzia Quinn MD Primary Care Provider [phone]- [phone] Encounter Details Date Type Department Care Team (Latest Contact Info) Description 09/21/1996 Notes/Orders Lesley De Leon, REHAB NURSE, STEAM CLEANER [address] [place] [address] Social History Tobacco Use Types Packs/Day Years [...] filedocumented in this encounter Care Teams Air Breaker Operator Relationship Specialty [place] [address] [place] [address] PCP - General 10/19/06 documented as of this encounter
--- OUTSIDE RECORDS SUMMARY | 2024-11-20 03:17 | XMS_ITS | Encounter Summary ---
Author Organization [facility] Address [address] [place] [address] Care Team Providers Care Technology Services Manager Name Role Phone Fauzia Quinn MD Primary Care Provider [phone]- [phone] Encounter Details Date Type Department Care Team (Late st Contact Info) Description 02/02/1994 Notes/Orders RG-Family Practice [address] [place] [address] Med Rosenthal MD [address] [place] [address] Social History Tobacco Use Types Packs/Day Years [...] on filedocumented in this encounter Care Teams Technology Services Manager Relationship Specialty [place] [address] [place] [address] PCP - General 10/19/06 documented as of this encounter
--- OUTSIDE RECORDS SUMMARY | 2024-11-20 03:17 | XMS_ITS | Encounter Summary ---
Author Organization [facility] Address [address] [place] [address] Care Team Providers Care Compounding Pharmacy Technician Name Role Phone Fauzia Quinn MD Primary Care Provider [phone]- [phone] Encounter Details Date Type Department Care Team (Late st Contact Info) Description 09/30/1993 Notes/Orders RG-Family Practice [address] [place] [address] Barbi Michaels MD Social History Tobacco Use [...] on filedocumented in this encounter Care Teams Compounding Pharmacy Technician Relationship Specialty [place] [address] [place] [address] PCP - General 10/19/06 documented as of this encounter
--- OUTSIDE RECORDS SUMMARY | 2024-11-20 03:17 | XMS_ITS | Encounter Summary ---
Author Organization [facility] Address [address] [place] [address] Care Team Providers Care Sales Analyst Name Role Phone Fauzia Quinn MD Primary Care Provider [phone]- [phone] Encounter Details Date Type Department Care Team [...] on filedocumented in this encounter Care Teams Sales Analyst Relationship Specialty [place] [address] [place] [address] PCP - General 10/19/06 documented as of this encounter
--- OUTSIDE RECORDS SUMMARY | 2024-11-20 03:17 | XMS_ITS | Encounter Summary ---
Author Organization [facility] Address [address] [place] [address] Care Team Providers Care Supervisor Machine Setter Name Role Phone Fauzia Quinn MD Primary Care Provider [phone]- [phone] Encounter Details Date Type Department Care Team (Latest Contact Info) Description 10/31/1997 Orders Only Nilesh Nino MD [address] [place] [address] Social History Tobacco Use Types Packs/Day Years [...] on filedocumented in this encounter Care Teams Supervisor Machine Setter Relationship Specialty [place] [address] [place] [address] PCP - General 10/19/06 documented as of this encounter
--- OUTSIDE RECORDS SUMMARY | 2024-11-20 03:17 | XMS_ITS | Encounter Summary ---
Author Organization [facility] Address [address] [place] [address] Care Team Providers Care Unix Analyst Name Role Phone Fauzia Quinn MD Primary Care Provider +1- [phone] Encounter Details Date Type Department Care Team [...] on filedocumented in this encounter Care Teams Unix Analyst Relationship Specialty [place] [address] [place] [address] PCP - General 10/19/06 documented as of this encounter
--- OUTSIDE RECORDS SUMMARY | 2024-11-20 03:17 | XMS_ITS | Clinical Summary ---
Author Organization [facility] Address [address] [place] [address] Care Team Providers Care Saw Superintendent Name Role Phone Leidy Saucedo PA-C Primary Care Provider [phone] Allergies Active Allergy Reactions Criticality Noted Date Comments Gluten Meal 02/25/2022 Pollen Extract/Tree Extract Cough 10/26/19 12 Sneezing, Medications ALLERGY SHOTS q 4 weeks 03/29/19 12 Active fluticasone (FLONASE) 50 MCG/ACT nasal spray 1-2 sprays by Both Nostrils route daily. 1 Package 11 03/29/19 12 Active ketotifen (ZADITOR) 0.025 % ophthalmic solution Place 1 drop into both eyes every 12 hours EYE drops 03/29/19 12 Active loratadine (CLARITIN) 10 MG tablet Take 1 tablet by mouth daily. 30 tablet 1 03/29/19 12 Active Cholecalciferol (VITAMIN D3 PO) Take 2,500 Units by mouth daily. Active neomycin-polymyxin- hydrocortisone (CORTISPORIN) 3.5-09244-[address] 1 drop into both eyes 2 times daily as needed Active acetaminophen (TYLENOL) 325 MG tablet Take 325-650 mg by mouth every 6 hours as needed. Active budesonide (PULMICORT FLEXHALER) 180 MCG/ACT inhaler Inhale 1 puff into the lungs 2 times daily. Active polyethylene glycol (MIRALAX) powderIndications:C onstipation Take 17 g by mouth daily. 510 g 1 12/19/19 12 Active albuterol (PROAIR HFA/PROVENTIL HFA/VENTOLIN HFA) 108 (90 Base) MCG/ACT inhaler Inhale 1-2 puffs into the lungs every 4 hours as needed for shortness of breath / dyspnea or wheezing Active levothyroxine (SYNTHROID/LEVOTHRO ID) 50 MCG tablet Take 50 mcg by mouth daily Active lifitegrast (XIIDRA) 5 % opthalmic solution Place 1 drop into both eyes 2 times daily Preservative free Active carboxymethylcellul ose PF (REFRESH PLUS) 0.5 % ophthalmic solution [...] as needed Active ibuprofen (ADVIL/MOTRIN) 600 MG tabletIndications:P ostoperative state Take 1 tablet (600 mg) by mouth every 6 hours as needed for moderate pain (4-6) 30 tablet 03/05/20 22 Active polyethylene glycol (MIRALAX) 17 GM/Dose powderIndications:P ostoperative state Take 17 g by mouth daily 510 g 03/05/20 22 Active promethazine (PHENERGAN) 25 MG tabletIndications:P ostoperative state Take 1 tablet (25 mg) by mouth every 6 hours as needed for nausea or other (pain) 10 tablet 03/05/20 22 Active simethicone (MYLICON) 125 MG chewable tabletIndications:P ostoperative state Take 1 tablet (125 mg) by mouth 2 times daily 14 tablet 03/05/20 22 Active SENNA-docusate sodium (SENNA S) 8.6-50 MG tabletIndications:I nternal intussusception of rectum (H) Take 1 tablet by mouth 2 times daily 30 tablet 03/05/20 22 Active Active Problems Problem Noted Date Diagnosed Date Internal intussusception of rectum 03/05/2022 Pneumonia due to 2019 novel coronavirus 02/02/20 21 Acute respiratory failure with hypoxia 11/15/202 1 Urinary incontinence 04/02/2011 Immunizations Immunization Administration Dates Next Due Influenza (IIV3) PF [...] School Help Needed Not on file 12/25 Comments No Sex and Gender Information Value Date Recorded Sex Assigned at Not on file Legal Sex Female 3:44 AM REWEAVER Gender Identity Not on file Sexual Orientation Not on file 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 Last Filed Vital Signs Vital Sign Reading Time Taken Comments Blood Pressure 103/63 03/05/2022 6:23 PM REWEAVER Pulse 78 03/05/2022 6:23 PM REWEAVER Temperature 37 C (98.6 F) 03/05/2022 6:23 PM REWEAVER Respiratory Rate 16 03/05/2022 6:23 PM REWEAVER Oxygen Saturation 96% 03/05/2022 6:23 PM REWEAVER Inhaled Oxygen Concentration - - Weight 67.1 kg (148 lb) 03/04/2022 11:49 AM REWEAVER Height 167.6 cm (5' 6) 03/04/2022 11:49 AM REWEAVER Body Mass Index 23.89 03/04/2022 11:49 AM REWEAVER Plan of Treatment Health Maintenance Due Date Last Done Comments ADVANCE CARE PLANNING 1965 ANNUAL REVIEW OF HM ORDERS 1965 CT COLONOGRAPHY 1965 FIT 1965 FLEX SIG 1965 TSH W/FREE T4 REFLEX 1965 COLONOSCOPY 10/08/1975 HEPATITIS B VACCINE (1 of 3 - 19+ 3-dose series) 1984 10/17/1989, 05/17/1989, 04/19/1989 LIPID 2005 YEARLY PREVENTIVE VISIT 10/25/2007 10/25/19 07, 11/26/2001, 08/16/2000, Additional history exists PAP 01/01/2014 01/01/2011, 10/24/2006 MAMMO SCREENING 01/11/2014 01/12/2012, 12/18, 12/28/2009, Additional history exists PNEUMOCOCCAL VACCINE 50+ YEARS (1 of 1 - PCV) 10/08/2015 COLORECTAL CANCER SCREENING 03/16/2023 sDNA (Cologuard) 03/16/2023 03/16/2020 COVID-19 VACCINE ( season) 2023 12/22/2022, 12/31/2021, 05/28/2021, Additional history exists PHQ-2 (once per calendar year) 2024 INFLUENZA VACCINE (#1) 2024 , 01/01/2021, 01/01/2021, Additional history exists DIABETES SCREENING 02/22/2025 02/22/2022, 1 04/11/2020, 02/07/2021, Additional history exists DTAP/TDAP/TD VACCINE (4 - Td or Tdap) 04/05/2027 04/05/2017, 11/12/2007, 08/16/2000, Additional history exists HEPATITIS C SCREENING Completed 02/05/2002 HIV SCREENING Completed 02/05/2002 ZOSTER VACCINE Completed 11/01/2018, 07/31/2018 HPV VACCINE (No Doses Required) Completed MENINGITIS VACCINE Aged Out No longer eligible based on patient's age to complete this topic Medical Devices Implanted Type Area Physical Metallurgist Device Identifier Shelf Expiration Date Model / Serial / Lot Mesh Sling Obtryx-Halo Implanted:Qty: 1 on 11/01/2011 by Teodoro Guajardo MD at [facility] N/A: Vagina [employer] 01/16/2014 [id number] / / [id number] Mesh Sling, Polyform Synthetic, 15cm X 20cm Implanted:Qty: 1 on 03/04/2022 by Judy Lucero MD at [facility] N/A: Pelvis [employer] 07/17/2022 [id number] / / [id number] Description:Mesh used for co lpopexy and rectopexy (mesh into two parts) Procedures Procedure Name Priority Date/Time Associated Diagnosis Comments GLUCOSE (EXTERNAL RESULT) Routine 02/22/2022 8:53 AM REWEAVER MA SCREENING DIGITAL BILATERAL Routine 01/12/2012 1:54 PM CDT PAP IMAGED THIN LAYER SCREEN Routine 01/01/2011 Screening for malignant neoplasm of the cervix from Last 3 Months or Most Recently Relevant to Health Maintenance Results * Glucose (External Result) (02/22/2022 8:53 AM REWEAVER) Glucose (External) 83 60 - 115 mg/dL EXTERNAL LAB Blood 02/22/2022 8:53 AM REWEAVER Narrative EXTERNAL LAB - 02/22/2022 8:53 AM REWEAVER [facility] LAB RESULT [facility] [address] [address] [address] [place] [address] us Provider Outside LAB - HIM EXTERNAL RESULT Final Result EXTERNAL LAB External Lab * Mammo Screening digital (bilat) (01/12/2012 1:54 PM CDT) Anatomical Region Laterality Modality Breast Bilateral Other 01/12/2012 1:54 PM CDT Impressions 01/12/2012 4:04 PM CDT SCREENING MAMMOGRAM, BILATERAL, DIGITAL w/CAD - 01/12/2012 1:54 PM BREAST SYMPTOMS: No current breast complaints. COMPARISON: 01/03/2011, 12/28/2009, 12/25/2008 PARENCHYMAL PATTERN: Scattered fibroglandular densities. COMMENTS: No findings of suspicion for malignancy. IMPRESSION: BIRADS 1, NEGATIVE. RECOMMENDATION: Recommend annual screening mammography. Exam results letter mailed to patient. I have personally reviewed the image and initial interpretation and agree with the findings. June Fitzloff IMG MAMMOGRAPHY ORDERABLES Edite d * PAP imaged thin layer, screen (01/01/2011) PAP Date 01/01/11 MISYS PAP MISYS Cytologic material (specimen) Teodoro Guajardo MD LAB - OPTIME CLINICAL SPECIMEN Final Result MISYS from Last 3 Months or Most Recently Relevant to Health Maintenance Insurance [employer] Directives For more information, please contact: [phone] * Full Code (Latest Code Status on [...] 8:29 AM 02/01/2021 8:42 AM Care Teams Saw Superintendent Relationship Specialty Start Date End Date Leidy Saucedo PA-C [place] [address] [place] [address] PCP - General 02/01/21
--- NOTE | 2024-11-20 03:18 | ED.ASTHMA ---
HPI - Asthma General Time Seen by Provider: 03:18 Date Seen: 11/20/24 Chief Complaint: Asthma Stated Complaint: asthma attack Time Seen by Provider: 11/20/24 03:18 Source: patient Mode of arrival: ambulatory Limitations: no limitations History of Present Illness HPI Narrative: 59-year-old female with history of asthma who commenced today with shortness of breath. Patient has noted increased allergy symptoms over list couple days, tonight the like she had more wheezing, used her Ellipta with minimal improvement, switched albuterol which she has to couple times before she came to the emergency department on the way here. Subsequently started having tingling in her legs as well as lightheadedness. Denies fevers or chills, no chest pain. Related Data Home Medications ?Medication ?Instructions ?Recorded ?Confirmed fluticasone propionate 50 1 spray intranasal BID 11/01/21 11/20/24 mcg/actuation nasal spray,suspension [id number] 1 drp ophthalmic (eye) Q1H PRN 11/27/21 11/20/24 80 0.5 %-1 %-0.5 % eye drops (Refresh Optive Advanced) estradiol 0.01% (0.1 mg/gram) 1 g vaginal 3XW 11/27/21 11/20/24 vaginal cream hypochlorous acid-sodium 1 applic topical BID 11/27/21 11/20/24 chloride-sodium phosphate topical spray ketotifen fumarate 0.025 % (0.035 1 drp ophthalmic (eye) BID 11/27/21 11/20/24 %) eye drops lifitegrast 5 % eye drops in a 1 drp ophthalmic (eye) BID 11/27/21 11/20/24 dropperette (Xiidra) zafirlukast 20 mg tablet 20 mg PO BID 11/27/21 11/20/24 cholecalciferol (vitamin D3) 25 75 mcg PO QDAY 11/22/22 11/20/24 mcg/drop (1,000 unit/drop) oral drops loratadine 10 mg tablet (Claritin) 10 mg PO QDAY 11/22/22 11/20/24 pseudoephedrine HCl 30 mg tablet 30 mg PO HS PRN 11/22/22 11/20/24 (Sudafed) azelastine 137 mcg (0.1 %) nasal 1 spray intranasal BID 11/20/24 11/20/24 spray fluticasone furoate 200 1 inh inhalation DAILY 11/20/24 11/20/24 mcg/actuation blister powder for inhalation (Arnuity Ellipta) Previous Rx's ?Medication ?Instructions ?Recorded acetic acid 2 % ear solution 2 drp otic (ear) BID #15 mL 08/29/24 levothyroxine 50 mcg tablet 50 mcg PO DAILY #90 tabs 09/02/24 omeprazole 20 mg capsule,delayed 20 mg PO QDAY #30 caps 10/11/24 release triamcinolone acetonide 0.1 % 1 applic topical BID #15 grams 11/06/24 topical cream prednisone 20 mg tablet 40 mg (2 x 20 mg) PO DAILY 4 days 11/20/24 #8 tabs Allergies Allergy/AdvReac Type Severity Reaction Status Date / Time Dust Allergy Intermediate Seasonal Uncoded 11/06/24 07:42 Cultivated oat pollen Allergy Mild Breathing Uncoded 11/06/24 07:42 Molds & Smuts Allergy Mild Seasonal Uncoded 11/06/24 07:42 Gluten Meal AdvReac Unknown Uncoded 11/06/24 07:42 [facility] Medical History Hypokalemia ?E87.6 - Hypokalemia (ICD-10) Closed fracture of phalanx of right fifth toe with routine healing ?S92.501D - Displaced unspecified fracture of right lesser toe(s), subsequent encounter for fracture with routine healing (ICD-10) Left lateral epicondylitis ?M77.12 - Lateral epicondylitis, left elbow (ICD-10) History of pancreatitis ?Z87.19 - Personal history of other diseases of the digestive system (ICD-10) COVID ?U07.1 - COVID-19 (ICD-10) Volvulus ?K56.2 - Volvulus (ICD-10) Acute pancreatitis ?K85.90 - Acute pancreatitis without necrosis or infection, unspecified (ICD-10) Surgical History History of surgery ?Z98.890 - Other specified postprocedural states (ICD-10) History of surgery ?Z98.890 - Other specified postprocedural states (ICD-10) History of exploratory laparotomy ?Z98.890 - Other specified postprocedural states (ICD-10) Status post vaginal hysterectomy ?Z90.710 - Acquired absence of both cervix and uterus (ICD-10) History of sinus surgery ?Z98.890 - Other specified postprocedural states (ICD-10) History of esophagogastroduodenoscopy (EGD) ?Z98.890 - Other specified postprocedural states (ICD-10) History of colonoscopy ?Z98.890 - Other specified postprocedural states (ICD-10) History of bladder surgery ?Z98.890 - Other specified postprocedural states (ICD-10) Family History Family/Other Celiac disease Crohn's disease History of hyperlipidemia Diabetes Father High blood pressure Diabetes Paternal Grandfather Diabetes Paternal Grandmother Diabetes Social History Narrative: , 2 adult children, 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 Lives in [place] What is your current living situation?: I presently have a place to live Problems where you live: no known problems In the past 12 months, utilities in danger of being shut off: no In past 12 months, lack of transportation kept you from medical appts, meetings, work, or getting things needed for daily living: no In the past 12 mos, have been you worried that your food would run out before you had money to buy more?: never true In the past 12 mos, the food you bought just didn't last and you didn't have money to buy more?: never true Highest level of school completed/degree received: some college, no degree Smoking Status: Never smoker Do you use any of these nicotine containing products: None Second hand tobacco smoke exposure: No How often do you have a drink containing alcohol: never How often do you have six or more drinks on one occasion: Never AUDIT-C Alcohol total score: 0 Non-prescribed substance use: denies use Caffeine: No How often does anyone, including family, friends and others, physically hurt you: never How often does anyone, including family, friends and others, insult or talk down to you: never How often does anyone, including family, friends and others, threaten you with harm: never How often does anyone, including family, friends and others, scream or curse at you: never service: No Exam Narrative: Exam Narrative: General: Well-developed and well-nourished, anxious. In tearful Head: Atraumatic and normocephalic Eyes: Pupils are equal reactive, extraocular motions intact, conjunctiva clear ENT: External nose and ears are normal, posterior pharynx without erythema or exudate Neck: No midline cervical tenderness, full spontaneous range of motion the neck, trachea midline, no adenopathy Heart: Regular rate and rhythm no murmurs or thrills Lungs: Clear to auscultation bilaterally without wheezes or crackles. Speaks in full sentences Abdomen: Soft, nontender, nondistended with active bowel sounds Musculoskeletal: No tenderness, deformity, or edema Neurologic: Awake, alert, and oriented x3, no gross focal neurologic deficits, cranial nerves intact as tested Psych: Mood and affect are appropriate Skin: No rashes Const: Vital Signs, click to edit/add: Vital Signs - 24 hr 11/20/24 03:21 Temperature 98.2 F Pulse Rate [Right Pulse Oximeter] 93 Respiratory Rate 24 Blood Pressure [Ri ght Upper Arm] 145/89 H Pulse Oximetry 100 Oxygen Delivery Me thod Room Air Course Course ED Course: Reviewed primary care visit from September 24 which was an annual physical, at that time asthma was well controlled. She has moderate persistent asthma. Patient seen examined, presents today with shortness of breath. She has been dealing with increased asthma and allergy symptoms recently, tonight felt more short of breath and felt minimal improvement with albuterol so came to the emergency department. On exam here, patient's tearful and anxious appearing, final stable with oxygen saturation 100%, lungs are clear with no wheezing or crackles, patient is speaking rapidly in full sentences. Likely acute anxiety on the heels of asthma exacerbation. Labs and chest x-ray move ordered, prednisone given in the emergency department in anticipate discharge. Patient no fever, chest pain, lower extremity swelling to suggest alternative problems such as heart failure, pneumonia, COVID or influenza. Reevaluation(s) Time of Reevaluation #1: 03:44 Reevaluation #1: Chest x-ray independently interpreted by me negative for acute infiltrate, pneumothorax, effusion. Time of Reevaluation #2: 04:05 Reevaluation #2: Labs in the middle interpreted by me demonstrate respiratory alkalosis consistent with acute hyperventilation, in this case likely from anxiety but could also be from acute asthma exacerbation. Patient remains with oxygen saturation 100% in the emergency department in no respiratory distress. Time of Reevaluation #3: 04:34 Reevaluation #3: Patient reexamined, wheezing remains resolved and patient says she feels better. We discussed plan for discharge pending BNP and BMP, prednisone for home. Additional Reevaluation(s): 4:34 p.m. labs independently interpreted by me with mild hypokalemia, normal BNP. Patient is stable for discharge Vital Signs Vital signs: Initial Vital Signs Respiratory Effort Normal, Spontaneous, Non-Labored 11/20/24 03:16 Respiratory Depth Normal 11/20/24 03:16 Respiratory Pattern Tachypnea 11/20/24 03:16 Vital Signs Temperature 98.2 F 11/20/24 03:21 Pulse Rate 93 11/20/24 03:21 Respiratory Rate 24 11/20/24 03:21 Blood Pressure 145/89 H 11/20/24 03:21 Pulse Oximetry 100 11/20/24 03:21 Oxygen Delivery Method Room Air 11/20/24 03:21 Temperature 98.2 F 11/20/24 03:21 Pulse Rate 93 11/20/24 03:21 Respiratory Rate 24 11/20/24 03:21 Blood Pressure 145/89 H 11/20/24 03:21 Pulse Oximetry 100 11/20/24 03:21 Oxygen Delivery Method Room Air 11/20/24 03:21 Medications Administered Medications: Generic Name Dose Route Start Last Admin Trade Name Freq PRN Reason Stop Dose Admin Prednisone 40 mg 11/20/24 03:29 11/20/24 03:32 Prednisone 20 Mg Tablet PO 11/20/24 03:30 40 mg ONCE ONE Administration MDM - Asthma Lab Data Labs: Lab Results 11/20/24 Range/Units 03:50 VBG pH 7.553 H (7.32-7.43) VBG pCO2 31 L (40-50) mmHG VBG pO2 < 30.1 (25-47) mmHG VBG HCO3 27 (21-28) mmol/L Sodium 137 (135-149) mmol/L Potassium 3.3 L (3.6-5.1) mmol/L Chloride 101 (96-114) mmol/L Carbon Dioxide 26 (20-32) mmol/L Anion Gap 10 (7-15) mEq/L BUN 25 (7-30) mg/dL Creatinine 0.7 (0.5-1.5) mg/dL Estimated Creat Clear 81.01 Estimated GFR 100 ml/min Glucose 94 (60-115) mg/dL Calcium 10.0 (8.4-10.6) mg/dL NT-Pro-B Natriuret Pep 33 (See Note) pg/mL Discharge Plan Discharge Clinical Impression: Asthma with acute exacerbation, Acute hyperventilation syndrome Patient Disposition: Home, Self-Care Condition: Stable Instructions: Asthma (DC), Hyperventilation (ED) Additional Instructions: Take your next dose of prednisone morning Use albuterol or Airsupra inhaler every 2 hours while awake for 24 hours, then every 3 hours while awake for 24 hours, then every 4 hours as needed Activity Level: No Restrictions Discharge Diet: Regular Prescriptions: New prednisone 20 mg tablet 40 mg PO DAILY 4 Days Qty: 8 0RF No Action pseudoephedrine HCl [Sudafed] 30 mg tablet 30 mg PO HS PRN Rx Instructions: DNExceed 4 doses/24h loratadine [Claritin] 10 mg tablet 10 mg PO QDAY cholecalciferol (vitamin D3) 25 mcg/drop ( 1,000 unit/drop) drops 75 mcg PO QDAY omeprazole 20 mg capsule,delayed release(DR/EC) 20 mg PO QDAY Qty: 30 0RF triamcinolone acetonide 0.1 % cream 1 applic topical BID Qty: 15 1RF ketotifen fumarate 0.025 % (0.035 %) drops 1 drp ophthalmic (eye) BID Xiidra 5 % dropperette 1 drp ophthalmic (eye) BID Rx Instructions: administer approximately 12 hours apart estradiol 0.01 % (0.1 mg/gram) cream 1 g VAGINAL 3XW Rx Instructions: 3 TIMES WEEKLY zafirlukast 20 mg tablet 20 mg PO BID Refresh Optive Advanced 0.5-1-0.5 % drops 1 drp ophthalmic (eye) Q1H PRN hypochlorous-sod chlor-sod briana [place],Non-Aerosol 1 applic topical BID azelastine 137 mcg (0.1 %) spray,non-aerosol 1 spray INTRANASAL BID fluticasone furoate [Arnuity Ellipta] 200 mcg/actuation blister with device 1 inh INHALATION DAILY fluticasone propionate 50 mcg/actuation spray,suspension 1 spray intranasal BID Rx Instructions: administer into each nostril acetic acid 2 % solution 2 drp otic (ear) BID Qty: 15 10RF levothyroxine 50 mcg tablet 50 mcg PO DAILY Qty: 90 0RF Rx Instructions: Fill when ready for next due Follow Up/Referrals: Leidy Saucedo PA-C [Primary Care Provider, Family Practice] Stand Alone Forms: [facility] Info Instructions Procedures ABG Interpretation ABG Results: 11/20/24 03:50 VBG pH 7.553 H VBG pCO2 31 L VBG pO2 < 30.1 VBG HCO3 27
--- OUTSIDE RECORDS SUMMARY | 2024-11-20 03:18 | XMS_ITS | Encounter Summary ---
Author Organization [facility] Address [address] [place] [address] Care Team Providers Care Gang Worker Name Role Phone Fauzia Quinn MD Primary Care Provider [phone]- [phone] Encounter Details Date Type Department Care Team (Latest Contact Info) Description 02/11/1997 Notes/Orders Nilesh Nino MD [address] [place] [address] Social History Tobacco Use Types Packs/Day Years [...] on filedocumented in this encounter Care Teams Gang Worker Relationship Specialty [place] [address] [place] [address] PCP - General 10/19/06 documented as of this encounter
--- OUTSIDE RECORDS SUMMARY | 2024-11-20 03:18 | XMS_ITS | Encounter Summary ---
Author Organization [facility] Address [address] [place] [address] Care Team Providers Care Apartment Maintenance Supervisor Name Role Phone Fauzia Quinn MD Primary Care Provider +1- [phone] Encounter Details Date Type Department Care Team [...] on filedocumented in this encounter Care Teams Apartment Maintenance Supervisor Relationship Specialty [place] [address] [place] [address] PCP - General 10/19/06 documented as of this encounter
--- OUTSIDE RECORDS SUMMARY | 2024-11-20 03:18 | XMS_ITS | Encounter Summary ---
Author Organization [facility] Address [address] [place] [address] Care Team Providers Care Manager Lean Name Role Phone Fauzia Quinn MD Primary Care Provider +1- [phone] Encounter Details Date Type Department Care Team [...] on filedocumented in this encounter Care Teams Manager Lean Relationship Specialty [place] [address] [place] [address] PCP - General 10/19/06 documented as of this encounter
--- OUTSIDE RECORDS SUMMARY | 2024-11-20 03:18 | XMS_ITS | Encounter Summary ---
Author Organization [facility] Address [address] [place] [id number] Care Team Providers Care Director Federal Name Role Phone Leidy Saucedo PA-C Primary Care Provider [phone] Encounter Details Date Type Department Care Team (Late st Contact Info) Description 12/27/2021 Orders Only [facility] Centralized Scheduling [address] [place] [id number] Toño Johns MD [address] [place] [address] Encounter for laboratory testing for COVID-19 virus Social History Tobacco Use Types Packs/Day Years Used Date Smoking Tobacco: Never Smokeless Tobacco: Never Alcohol Use Standard Drinks/Week Comments No 0 (1 standard drink = 0.6 oz pur e alcohol) Comments No Sex and Gender Information Value Date Recorded Sex Assigned at Not on file Legal Sex Female 3:44 AM [employer]GE [employer] Gender Identity Not on file Sexual Orientation Not on file 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
[2024-11-20 03:21] VITALS: BP 145/89; PULSE 93; RESP 24; TEMP 36.8; O2SAT 100; BMI 23.4
--- NOTE | 2024-11-20 03:29 | CRLHL7_ITS ---
For Patients: As a result of the Century Cures Act, medical imaging exams and procedure reports are released immediately into your electronic medical record. You may view this report before your referring provider. If you have questions, please contact your health care provider. INDICATION: Dyspnea. TECHNIQUE: Chest 2 views. COMPARISON: None. FINDINGS: Cardiovascular and mediastinum: Heart size is normal. Unremarkable mediastinum. Lungs and pleural spaces: Lungs are clear. No sign of infiltrate or mass. No sign of pleural effusion. No pneumothorax. Bones and soft tissues: No significant findings. IMPRESSION: No acute cardiopulmonary abnormality. Dictated by Marvel Arora MD @ 11/20/2024 3:50:05 AM (Electronically Signed)
--- OUTSIDE RECORDS SUMMARY | 2024-11-20 03:35 | XMS_ITS | CCD ---
Author Name Interface, [id number] lity Address [address] [address] [facility] Address [facility] [address] Reason for Visit Social History
--- OUTSIDE RECORDS SUMMARY | 2024-11-20 03:35 | XMS_ITS | CCD ---
Author Name Interface, [id number] lity Address [facility] [place] [id number] [facility] Address [facility] [place] [address] Reason for Visit Social History Date Name Value Sex Female
[2024-11-20 03:54] LABS: HCO3 VBG 27 mmol/L (21-28); PCO2 VBG 31 mmHG (40-50); PO2 VBG < 30.1 mmHG (25-47); pH VBG 7.553 (7.32-7.43)
[2024-11-20 04:10] LABS: Chloride* 101 mmol/L (96-114); Potassium* 3.3 mmol/L (3.6-5.1); Sodium* 137 mmol/L (135-149)
[2024-11-20 04:13] LABS: Anion Gap 10 mEq/L (7-15); Blood Urea Nitrogen* 25 mg/dL (7-30); Calcium* 10.0 mg/dL (8.4-10.6); Carbon Dioxide* 26 mmol/L (20-32); Creatinine* 0.7 mg/dL (0.5-1.5); Est. Creatinine Clearance* 81.01; Estimated Glomerular Filt Rate 100 ml/min; Glucose* 94 mg/dL (60-115)
[2024-11-20 04:41] LABS: NT Pro B Type NatriureticPept* 33 pg/mL (See Note)
[2024-11-20 04:55] VITALS: BP 135/74; PULSE 89; RESP 24; TEMP 36.8; O2SAT 100
== END 2024-11-20 04:56 | disposition home or self-care (01) ==
PROVIDERS: Emergency Provider Family Medicine; PCP Physician Assistant Medical
DX: J45.901 Unspecified asthma with (acute) exacerbation (principal); R06.4 Hyperventilation
CPT/HCPCS: 36415; 71046; 80048; 82803; 83880; 99284; J7512